=== PATIENT | female | born 1960 | race Caucasian/White ===

== ENCOUNTER → 2017-09-16 | Outpatient (CLI) | payer BC, OTHER, MEDICAID | LOC: M WHC 13:15 | DX: Z12.31 Encounter for screening mammogram for malignant neoplasm of breast (principal) ==

== ENCOUNTER → 2017-09-16 | Outpatient (REF) | payer OTHER, MEDICAID | LOC: M SFHCWAGY 13:06 | DX: Z12.4 Encounter for screening for malignant neoplasm of cervix (principal) ==

== ENCOUNTER 2017-12-16 18:49 | Emergency (ER) | payer BC, MEDICAID ==
[2017-12-16 19:22] LABS: KETONE, URINE AUTO RFX 2+ mg/dL (NEGATIVE); LEUKOCYTE ESTERASE UR AUTO RFX 2+ (NEGATIVE); MUCUS, URINE RFX SMALL (NEGATIVE); NITRITE, URINE AUTO RFX NEGATIVE (NEGATIVE); RBC, URINE AUTO RFX 2 /HPF (0-3); SPECIFIC GRAVITY UR AUTO RFX 1.023 (1.002-1.035); SQUAM EPITHELIAL CELL UR AURFX 2 /HPF (0-6); WBC, URINE AUTO RFX 12 /HPF (0-3)
[2017-12-16] MEDS: NITROFURANTOIN (MACROBID) 100 MG CAP PO (22:25)
== END 2017-12-16 22:31 | disposition home or self-care (01) ==
LOC: M ED 18:49
DX: N30.00 Acute cystitis without hematuria (principal); E11.9 Type 2 diabetes mellitus without complications; I10 Essential (primary) hypertension; J44.9 Chronic obstructive pulmonary disease, unspecified; K21.9 Gastro-esophageal reflux disease without esophagitis; E07.9 Disorder of thyroid, unspecified; F41.9 Anxiety disorder, unspecified; M54.9 Dorsalgia, unspecified; F31.9 Bipolar disorder, unspecified; Z79.82 Long term (current) use of aspirin; Z79.4 Long term (current) use of insulin; Z79.899 Other long term (current) drug therapy; Z88.8 Allergy status to other drugs, medicaments and biological substances; Z88.2 Allergy status to sulfonamides
CPT/HCPCS: 81001

== ENCOUNTER 2018-04-28 10:14 | Inpatient (IN) | payer OTHER, MEDICAID, BC ==
[2018-04-28] MEDS: LISINOPRIL 20 MG TAB PO (11:08)
[2018-04-28 11:13] LABS: BEDSIDE GLUCOSE 124 MG/DL (70-105)
[2018-04-28 11:21] LABS: HEMATOCRIT 36.6 % (36.0-47.0); HEMOGLOBIN 12.6 g/dl (12.0-15.5); MEAN CORPUSCULAR HEMOGLOBIN 30.9 pg (27.0-33.0); MEAN CORPUSCULAR HGB CONC 34.4 g/dl (32.0-36.5); MEAN CORPUSCULAR VOLUME 89.7 fl (80.0-96.0); PLATELET COUNT, AUTOMATED 273 10^3/uL (150-450); RED BLOOD COUNT 4.08 10^6/uL (4.00-5.40); RED CELL DISTRIBUTION WIDTH 11.9 % (11.5-14.5); WHITE BLOOD COUNT 10.5 10^3/uL (4.0-10.0)
[2018-04-28 11:51] LABS: AMPHETAMINES LEVEL URINE NEGATIVE (NEGATIVE); BARBITURATES URINE NEGATIVE (NEGATIVE); BENZODIAZEPINES URINE NEGATIVE (NEGATIVE); CANNABINOIDS URINE NEGATIVE (NEGATIVE); COCAINE METABOLITE URINE NEGATIVE (NEGATIVE); METHADONE URINE NEGATIVE (NEGATIVE); OPIATES URINE NEGATIVE (NEGATIVE); PHENCYCLIDINE URINE NEGATIVE (NEGATIVE)
[2018-04-28 12:09] LABS: ACETAMINOPHEN LEVEL < 2.0 UG/ML (10.0-30.0); ALBUMIN 3.8 GM/DL (3.2-5.2); ALBUMIN/GLOBULIN RATIO 1.27 (1.00-1.93); ALKALINE PHOSPHATASE 90 U/L (45-117); ALT/SGPT 38 U/L (12-78); ANION GAP 10 MEQ/L (8-16); AST/SGOT 24 U/L (7-37); BILIRUBIN,DIRECT 0.1 MG/DL (0.0-0.2); BILIRUBIN,TOTAL 0.3 MG/DL (0.2-1.0); BLOOD UREA NITROGEN 16 MG/DL (7-18); CALCIUM LEVEL 8.4 MG/DL (8.5-10.1); CARBON DIOXIDE LEVEL 26 MEQ/L (21-32); CHLORIDE LEVEL 94 MEQ/L (98-107); ETHYL ALCOHOL (ETHANOL) 0.006 % (0.000-0.010); GLOMERULAR FILTRATION RATE > 60.0 (>51); GLUCOSE, FASTING 119 MG/DL (70-100); POTASSIUM SERUM 4.3 MEQ/L (3.5-5.1); SALICYLATE LEVEL < 1.7 MG/DL (5.0-30.0); SODIUM LEVEL 130 MEQ/L (136-145); TOTAL PROTEIN 6.8 GM/DL (6.4-8.2); VALPROIC ACID (DEPAKOTE) 42.8 UG/ML (50.0-100.0)
[2018-04-28 12:32] LABS: KETONE, URINE AUTO RFX NEGATIVE (NEGATIVE); MUCUS, URINE RFX SMALL (NEGATIVE); NITRITE, URINE AUTO RFX NEGATIVE (NEGATIVE); RBC, URINE AUTO RFX 6 /HPF (0-3); SPECIFIC GRAVITY UR AUTO RFX 1.009 (1.002-1.035); SQUAM EPITHELIAL CELL UR AURFX 1 /HPF (0-6); WBC, URINE AUTO RFX 4 /HPF (0-3)
[2018-04-28 12:33] LABS: LEUKOCYTE ESTERASE UR AUTO RFX 1+ (NEGATIVE)
[2018-04-28] MEDS ORDERED: IBUPROFEN 600 MG TAB As Ordered (13:03)
[2018-04-28] MEDS: IBUPROFEN 600 MG TAB PO (13:04)
[2018-04-28] MEDS: LORazepam 1 MG TAB PO (14:41)
[2018-04-28] MEDS ORDERED: MAALOX 30 ML SUSP *UDC PO (15:00)
[2018-04-28] MEDS ORDERED: MOM 30ML SUSPENSION UDC PO (15:00)
[2018-04-28] MEDS: ASPIRIN 81 MG ENTERIC TAB PO (18:37)
[2018-04-28] MEDS: PANTOPRAZOLE 40MG TAB (PROTONIX) PO (18:37)
[2018-04-28] MEDS: diphenhydrAMINE 50 MG CAP PO (18:37)
[2018-04-28] MEDS: CLOPIDOGREL 75 MG TAB PO (18:37)
[2018-04-28] MEDS: LORazepam 2 MG TAB PO (18:37)
[2018-04-28] MEDS: HALOPERIDOL 5 MG TAB PO (18:37)
[2018-04-28] MEDS ORDERED: GLUCAGON FOR INJ 1 MG VIAL (J1610) SC (18:45)
[2018-04-28] MEDS ORDERED: GLUCOSE 4 GM CHEW TABLET PO (18:45)
[2018-04-28 20:58] LABS: BEDSIDE GLUCOSE 365 MG/DL (70-105)
[2018-04-28] MEDS: rOPINIRole 0.25 MG TAB(REQUIP) PO (21:06)
[2018-04-28] MEDS: DIVALPROEX 500MG *ER* TAB PO (21:06)
[2018-04-28] MEDS: BENZTROPINE 0.5 MG TAB PO (21:06)
[2018-04-28] MEDS: LATANOPROST 0.005% OPHTH SOLN 2.5 ML OU (21:08)
[2018-04-28] MEDS: BRIMONIDINE 0.15% OPHTH SOLN 5 ML OS (21:08)
[2018-04-28] MEDS: BRINZOLAMIDE 1 % OPHTH SUSP (AZOPT) 10ML OS (21:08)
[2018-04-28] MEDS: ADVAIR HFA 115/21MCG INHALER INH (21:09)
[2018-04-28] MEDS: LEVEMIR (INSULIN DETEMIR) 1 UNITS/0.01ML SC (21:19)
[2018-04-28] MEDS: HumaLOG INSULIN (NovoLOG) PER UNIT SC (21:19)
[2018-04-28] MEDS: ACETAMINOPHEN TAB 650MG DOSE (2X325MG) PO (23:45)
[2018-04-28] MEDS: FUROSEMIDE 20 MG TAB PO (23:45)
[2018-04-28] MEDS: ALBUTEROL 90 MCG/ACT 8GM HFA INHALER INH (23:46)
[2018-04-29] MEDS: diphenhydrAMINE 50 MG CAP PO ×3 (03:01→23:35)
[2018-04-29] MEDS: LORazepam 1 MG TAB PO (03:01)
[2018-04-29] MEDS: HALOPERIDOL 5 MG TAB PO (03:01)
[2018-04-29 04:19] LABS: BEDSIDE GLUCOSE 146 MG/DL (70-105)
[2018-04-29] MEDS: LEVOTHYROXINE 25MCG TABLET (0.025MG) PO (06:35)
[2018-04-29] MEDS: HumaLOG INSULIN (NovoLOG) PER UNIT SC ×4 (06:42→20:29)
[2018-04-29] MEDS ORDERED: traZODone 50 MG TAB PO (09:00)
[2018-04-29] MEDS: LEVEMIR (INSULIN DETEMIR) 1 UNITS/0.01ML SC ×2 (09:25→20:29)
[2018-04-29] MEDS: PANTOPRAZOLE 40MG TAB (PROTONIX) PO (09:26)
[2018-04-29] MEDS: CLOPIDOGREL 75 MG TAB PO (09:26)
[2018-04-29] MEDS: BRIMONIDINE 0.15% OPHTH SOLN 5 ML OS ×2 (09:26→21:00)
[2018-04-29] MEDS: ADVAIR HFA 115/21MCG INHALER INH ×2 (09:26→20:31)
[2018-04-29] MEDS: ASPIRIN 81 MG ENTERIC TAB PO (09:26)
[2018-04-29] MEDS: BRINZOLAMIDE 1 % OPHTH SUSP (AZOPT) 10ML OS ×3 (09:26→21:00)
[2018-04-29] MEDS: BENZTROPINE 0.5 MG TAB PO ×2 (09:26→20:29)
[2018-04-29] MEDS: LISINOPRIL 20 MG TAB PO (09:27)
[2018-04-29 11:37] LABS: ALBUMIN 3.8 GM/DL (3.2-5.2); ALBUMIN/GLOBULIN RATIO 1.31 (1.00-1.93); ALKALINE PHOSPHATASE 81 U/L (45-117); ALT/SGPT 35 U/L (12-78); ANION GAP 9 MEQ/L (8-16); AST/SGOT 30 U/L (7-37); BILIRUBIN,TOTAL 0.6 MG/DL (0.2-1.0); BLOOD UREA NITROGEN 16 MG/DL (7-18); CALCIUM LEVEL 8.2 MG/DL (8.5-10.1); CARBON DIOXIDE LEVEL 27 MEQ/L (21-32); CHLORIDE LEVEL 93 MEQ/L (98-107); CREATININE FOR GFR 0.54 MG/DL (0.55-1.30); GLOMERULAR FILTRATION RATE > 60.0 (>51); GLUCOSE, FASTING 140 MG/DL (70-100); POTASSIUM SERUM 4.6 MEQ/L (3.5-5.1); SODIUM LEVEL 129 MEQ/L (136-145); TOTAL PROTEIN 6.7 GM/DL (6.4-8.2)
[2018-04-29 11:54] LABS: BEDSIDE GLUCOSE 203 MG/DL (70-105)
[2018-04-29 12:56] LABS: HEMATOCRIT 34.7 % (36.0-47.0); MEAN CORPUSCULAR HEMOGLOBIN 30.8 pg (27.0-33.0); MEAN CORPUSCULAR HGB CONC 34.6 g/dl (32.0-36.5); MEAN CORPUSCULAR VOLUME 89.2 fl (80.0-96.0); PLATELET COUNT, AUTOMATED 285 10^3/uL (150-450); RED BLOOD COUNT 3.89 10^6/uL (4.00-5.40)
[2018-04-29 13:52] LABS: OSMOLALITY SERUM 276 MOSM/KG (275-295)
[2018-04-29 14:02] LABS: URIC ACID 3.9 MG/DL (2.6-6.0)
[2018-04-29 14:02] LABS: MAGNESIUM LEVEL 1.7 MG/DL (1.8-2.4)
[2018-04-29] MEDS: ACETAMINOPHEN TAB 650MG DOSE (2X325MG) PO (14:31)
[2018-04-29] MEDS: clonazePAM 0.5 MG TAB PO ×2 (14:55→20:29)
[2018-04-29 17:13] LABS: BEDSIDE GLUCOSE 133 MG/DL (70-105)
[2018-04-29] MEDS: DIVALPROEX 500MG *ER* TAB PO (20:29)
[2018-04-29] MEDS: rOPINIRole 0.25 MG TAB(REQUIP) PO (20:29)
[2018-04-29] MEDS: LORazepam 2 MG TAB PO (20:33)
[2018-04-29 20:59] LABS: BEDSIDE GLUCOSE 213 MG/DL (70-105)
[2018-04-29] MEDS: LATANOPROST 0.005% OPHTH SOLN 2.5 ML OU (21:00)
[2018-04-29] MEDS: HALOPERIDOL 10 MG TAB PO (23:35)
[2018-04-29] MEDS: LORazepam 0.5 MG TAB PO (23:35)
[2018-04-30] MEDS: HALOPERIDOL 5 MG/ML VIAL (J1630) IM (01:21)
[2018-04-30] MEDS: diphenhydrAMINE INJ 50MG/ML VIAL (J1200) IM (01:21)
[2018-04-30 06:53] LABS: HEMATOCRIT 33.8 % (36.0-47.0); HEMOGLOBIN 11.7 g/dl (12.0-15.5); MEAN CORPUSCULAR HEMOGLOBIN 31.3 pg (27.0-33.0); MEAN CORPUSCULAR HGB CONC 34.6 g/dl (32.0-36.5); MEAN CORPUSCULAR VOLUME 90.4 fl (80.0-96.0); PLATELET COUNT, AUTOMATED 240 10^3/uL (150-450); RED BLOOD COUNT 3.74 10^6/uL (4.00-5.40); RED CELL DISTRIBUTION WIDTH 12.1 % (11.5-14.5); WHITE BLOOD COUNT 10.3 10^3/uL (4.0-10.0)
[2018-04-30 07:07] LABS: ESTIMATED AVERAGE GLUCOSE 151 MG/DL (60-110); HEMOGLOBIN A1c 6.9 %
[2018-04-30 07:28] LABS: ALBUMIN 3.4 GM/DL (3.2-5.2); ALBUMIN/GLOBULIN RATIO 1.06 (1.00-1.93); ALKALINE PHOSPHATASE 70 U/L (45-117); ALT/SGPT 30 U/L (12-78); ANION GAP 8 MEQ/L (8-16); AST/SGOT 14 U/L (7-37); BILIRUBIN,TOTAL 0.2 MG/DL (0.2-1.0); BLOOD UREA NITROGEN 15 MG/DL (7-18); CALCIUM LEVEL 8.2 MG/DL (8.5-10.1); CARBON DIOXIDE LEVEL 28 MEQ/L (21-32); CHLORIDE LEVEL 96 MEQ/L (98-107); CREATININE FOR GFR 0.44 MG/DL (0.55-1.30); GLOMERULAR FILTRATION RATE > 60.0 (>51); GLUCOSE, FASTING 174 MG/DL (70-100); POTASSIUM SERUM 4.3 MEQ/L (3.5-5.1); SODIUM LEVEL 132 MEQ/L (136-145); TOTAL PROTEIN 6.6 GM/DL (6.4-8.2)
[2018-04-30] MEDS: HumaLOG INSULIN (NovoLOG) PER UNIT SC ×4 (07:30→20:16)
[2018-04-30 08:09] LABS: BEDSIDE GLUCOSE 178 MG/DL (70-105)
[2018-04-30] MEDS: clonazePAM 0.5 MG TAB PO ×2 (09:00→20:19)
[2018-04-30] MEDS: LEVEMIR (INSULIN DETEMIR) 1 UNITS/0.01ML SC ×2 (09:00→20:21)
[2018-04-30] MEDS: BRIMONIDINE 0.15% OPHTH SOLN 5 ML OS ×2 (11:34→20:27)
[2018-04-30] MEDS: BRINZOLAMIDE 1 % OPHTH SUSP (AZOPT) 10ML OS ×3 (11:34→20:19)
[2018-04-30 11:41] LABS: BEDSIDE GLUCOSE 155 MG/DL (70-105)
[2018-04-30] MEDS: PANTOPRAZOLE 40MG TAB (PROTONIX) PO (15:38)
[2018-04-30] MEDS: DIVALPROEX 500MG *ER* TAB PO (15:38)
[2018-04-30] MEDS: ADVAIR HFA 115/21MCG INHALER INH ×2 (15:38→20:23)
[2018-04-30] MEDS: FUROSEMIDE 20 MG TAB PO (15:39)
[2018-04-30] MEDS: LEVOTHYROXINE 25MCG TABLET (0.025MG) PO (15:39)
[2018-04-30] MEDS: BENZTROPINE 0.5 MG TAB PO ×2 (15:39→20:20)
[2018-04-30] MEDS: CLOPIDOGREL 75 MG TAB PO (15:39)
[2018-04-30] MEDS: ASPIRIN 81 MG ENTERIC TAB PO (15:39)
[2018-04-30] MEDS: LISINOPRIL 20 MG TAB PO (15:39)
[2018-04-30] MEDS: NYSTATIN 100,000 UNITS/GM TOPICAL PWD 15 GM TOP (16:37)
[2018-04-30] MEDS: ACETAMINOPHEN TAB 650MG DOSE (2X325MG) PO (16:45)
[2018-04-30 16:59] LABS: BEDSIDE GLUCOSE 170 MG/DL (70-105)
[2018-04-30 20:18] LABS: BEDSIDE GLUCOSE 233 MG/DL (70-105)
[2018-04-30] MEDS: rOPINIRole 0.25 MG TAB(REQUIP) PO (20:25)
[2018-04-30] MEDS: LATANOPROST 0.005% OPHTH SOLN 2.5 ML OU (20:27)
[2018-04-30] MEDS: diphenhydrAMINE INJ 50MG/ML VIAL (J1200) IV (21:54)
[2018-04-30] MEDS: HALOPERIDOL 10 MG TAB PO (21:56)
[2018-04-30] MEDS ORDERED: diphenhydrAMINE 50 MG CAP As Ordered (21:56)
[2018-04-30] MEDS: LORazepam 1 MG TAB PO (21:56)
[2018-04-30] MEDS: diphenhydrAMINE 50 MG CAP PO (22:00)
[2018-05-01] MEDS ORDERED: LORazepam 2 MG TAB As Ordered (00:08)
[2018-05-01] MEDS: HALOPERIDOL 10 MG TAB PO (00:25)
[2018-05-01] MEDS: LORazepam 2 MG TAB PO (00:25)
[2018-05-01] MEDS: diphenhydrAMINE 50 MG CAP PO (00:25)
[2018-05-01 06:34] LABS: BEDSIDE GLUCOSE 178 MG/DL (70-105)
[2018-05-01] MEDS: LEVOTHYROXINE 25MCG TABLET (0.025MG) PO (06:34)
[2018-05-01] MEDS: HumaLOG INSULIN (NovoLOG) PER UNIT SC ×4 (07:30→20:46)
[2018-05-01] MEDS: ADVAIR HFA 115/21MCG INHALER INH ×2 (11:33→20:45)
[2018-05-01] MEDS: BRINZOLAMIDE 1 % OPHTH SUSP (AZOPT) 10ML OS ×3 (11:34→20:44)
[2018-05-01] MEDS: BRIMONIDINE 0.15% OPHTH SOLN 5 ML OS ×2 (11:34→20:44)
[2018-05-01] MEDS: ASPIRIN 81 MG ENTERIC TAB PO (11:35)
[2018-05-01] MEDS: PANTOPRAZOLE 40MG TAB (PROTONIX) PO (11:35)
[2018-05-01] MEDS: clonazePAM 0.5 MG TAB PO ×2 (11:35→20:45)
[2018-05-01] MEDS: BENZTROPINE 0.5 MG TAB PO ×2 (11:35→20:45)
[2018-05-01] MEDS: LISINOPRIL 20 MG TAB PO (11:35)
[2018-05-01] MEDS: CLOPIDOGREL 75 MG TAB PO (11:35)
[2018-05-01] MEDS: LEVEMIR (INSULIN DETEMIR) 1 UNITS/0.01ML SC ×2 (11:39→20:41)
[2018-05-01] MEDS: ACETAMINOPHEN TAB 650MG DOSE (2X325MG) PO ×2 (11:43→23:53)
[2018-05-01] MEDS: NYSTATIN 100,000 UNITS/GM TOPICAL PWD 15 GM TOP (11:47)
[2018-05-01 12:01] LABS: BEDSIDE GLUCOSE 140 MG/DL (70-105)
[2018-05-01] MEDS: ALBUTEROL 90 MCG/ACT 8GM HFA INHALER INH (13:40)
[2018-05-01 17:03] LABS: BEDSIDE GLUCOSE 194 MG/DL (70-105)
[2018-05-01 20:34] LABS: BEDSIDE GLUCOSE 135 MG/DL (70-105)
[2018-05-01] MEDS: rOPINIRole 0.25 MG TAB(REQUIP) PO (20:44)
[2018-05-01] MEDS: LATANOPROST 0.005% OPHTH SOLN 2.5 ML OU (20:44)
[2018-05-01] MEDS: DIVALPROEX 500MG *ER* TAB PO (20:45)
[2018-05-02] MEDS: HALOPERIDOL 5 MG/ML VIAL (J1630) IM ×2 (00:17→02:19)
[2018-05-02] MEDS: LORazepam 2 MG/ML VIAL (J2060) IM (00:17)
[2018-05-02] MEDS: diphenhydrAMINE INJ 50MG/ML VIAL (J1200) IM ×2 (00:18→02:19)
[2018-05-02] MEDS: HALOPERIDOL 10 MG TAB PO ×2 (01:59→20:49)
[2018-05-02] MEDS: diphenhydrAMINE 50 MG CAP PO (01:59)
[2018-05-02] MEDS: ALBUTEROL 90 MCG/ACT 8GM HFA INHALER INH ×3 (04:36→16:32)
[2018-05-02] MEDS: LEVOTHYROXINE 25MCG TABLET (0.025MG) PO (04:37)
[2018-05-02] MEDS: HumaLOG INSULIN (NovoLOG) PER UNIT SC ×4 (06:25→20:50)
[2018-05-02 06:27] LABS: BEDSIDE GLUCOSE 77 MG/DL (70-105)
[2018-05-02] MEDS: OLANZapine ORAL DISINTEGRATING TAB 5MG PO ×2 (07:08→21:16)
[2018-05-02] MEDS: clonazePAM 0.5 MG TAB PO (08:15)
[2018-05-02] MEDS: PANTOPRAZOLE 40MG TAB (PROTONIX) PO (08:15)
[2018-05-02] MEDS: BRIMONIDINE 0.15% OPHTH SOLN 5 ML OS ×2 (08:15→20:50)
[2018-05-02] MEDS: BRINZOLAMIDE 1 % OPHTH SUSP (AZOPT) 10ML OS ×3 (08:15→20:50)
[2018-05-02] MEDS: ASPIRIN 81 MG ENTERIC TAB PO (08:16)
[2018-05-02] MEDS: BENZTROPINE 0.5 MG TAB PO (08:16)
[2018-05-02] MEDS: LISINOPRIL 20 MG TAB PO (08:16)
[2018-05-02] MEDS: CLOPIDOGREL 75 MG TAB PO (08:16)
[2018-05-02] MEDS: ADVAIR HFA 115/21MCG INHALER INH ×2 (08:17→20:54)
[2018-05-02] MEDS: LEVEMIR (INSULIN DETEMIR) 1 UNITS/0.01ML SC ×2 (08:17→20:54)
[2018-05-02] MEDS: ACETAMINOPHEN TAB 650MG DOSE (2X325MG) PO (08:25)
[2018-05-02 10:14] LABS: CORTISOL AM 29.7 UG/DL (4.3-22.4)
[2018-05-02 12:10] LABS: BEDSIDE GLUCOSE 136 MG/DL (70-105)
[2018-05-02 12:21] LABS: ANION GAP 9 MEQ/L (8-16); BLOOD UREA NITROGEN 13 MG/DL (7-18); CALCIUM LEVEL 8.8 MG/DL (8.5-10.1); CARBON DIOXIDE LEVEL 24 MEQ/L (21-32); CHLORIDE LEVEL 99 MEQ/L (98-107); CREATININE FOR GFR 0.44 MG/DL (0.55-1.30); GLOMERULAR FILTRATION RATE > 60.0 (>51); GLUCOSE, FASTING 161 MG/DL (70-100); POTASSIUM SERUM 5.1 MEQ/L (3.5-5.1); SODIUM LEVEL 132 MEQ/L (136-145)
[2018-05-02 17:13] LABS: BEDSIDE GLUCOSE 153 MG/DL (70-105)
[2018-05-02 20:43] LABS: BEDSIDE GLUCOSE 129 MG/DL (70-105)
[2018-05-02] MEDS: rOPINIRole 0.25 MG TAB(REQUIP) PO (20:48)
[2018-05-02] MEDS: clonazePAM 1 MG TAB PO (20:49)
[2018-05-02] MEDS: BENZTROPINE 1 MG TAB PO (20:49)
[2018-05-02] MEDS: DIVALPROEX 500MG *ER* TAB PO (20:49)
[2018-05-02] MEDS: LATANOPROST 0.005% OPHTH SOLN 2.5 ML OU (20:50)
[2018-05-03] MEDS: LEVOTHYROXINE 25MCG TABLET (0.025MG) PO (06:27)
[2018-05-03 06:35] LABS: BEDSIDE GLUCOSE 144 MG/DL (70-105)
[2018-05-03] MEDS: HumaLOG INSULIN (NovoLOG) PER UNIT SC ×4 (07:03→21:00)
[2018-05-03 07:23] LABS: HEMATOCRIT 32.1 % (36.0-47.0); HEMOGLOBIN 11.1 g/dl (12.0-15.5); MEAN CORPUSCULAR HEMOGLOBIN 31.4 pg (27.0-33.0); MEAN CORPUSCULAR HGB CONC 34.6 g/dl (32.0-36.5); MEAN CORPUSCULAR VOLUME 90.9 fl (80.0-96.0); PLATELET COUNT, AUTOMATED 251 10^3/uL (150-450); RED BLOOD COUNT 3.53 10^6/uL (4.00-5.40); RED CELL DISTRIBUTION WIDTH 12.1 % (11.5-14.5); WHITE BLOOD COUNT 10.4 10^3/uL (4.0-10.0)
[2018-05-03 07:40] LABS: ANION GAP 7 MEQ/L (8-16); BLOOD UREA NITROGEN 11 MG/DL (7-18); CALCIUM LEVEL 8.4 MG/DL (8.5-10.1); CARBON DIOXIDE LEVEL 29 MEQ/L (21-32); CHLORIDE LEVEL 97 MEQ/L (98-107); CREATININE FOR GFR 0.46 MG/DL (0.55-1.30); GLOMERULAR FILTRATION RATE > 60.0 (>51); GLUCOSE, FASTING 138 MG/DL (70-100); POTASSIUM SERUM 4.3 MEQ/L (3.5-5.1); SODIUM LEVEL 133 MEQ/L (136-145)
[2018-05-03 07:51] LABS: ALBUMIN 3.2 GM/DL (3.2-5.2); ALBUMIN/GLOBULIN RATIO 1.28 (1.00-1.93); ALKALINE PHOSPHATASE 67 U/L (45-117); ALT/SGPT 24 U/L (12-78); ANION GAP 8 MEQ/L (8-16); AST/SGOT 11 U/L (7-37); BILIRUBIN,TOTAL 0.4 MG/DL (0.2-1.0); BLOOD UREA NITROGEN 12 MG/DL (7-18); CALCIUM LEVEL 8.6 MG/DL (8.5-10.1); CARBON DIOXIDE LEVEL 28 MEQ/L (21-32); CHLORIDE LEVEL 98 MEQ/L (98-107); CREATININE FOR GFR 0.43 MG/DL (0.55-1.30); GLOMERULAR FILTRATION RATE > 60.0 (>51); GLUCOSE, FASTING 139 MG/DL (70-100); POTASSIUM SERUM 4.4 MEQ/L (3.5-5.1); SODIUM LEVEL 134 MEQ/L (136-145); TOTAL PROTEIN 5.7 GM/DL (6.4-8.2)
[2018-05-03] MEDS: BENZTROPINE 1 MG TAB PO ×2 (09:52→20:25)
[2018-05-03] MEDS: ASPIRIN 81 MG ENTERIC TAB PO (09:52)
[2018-05-03] MEDS: HALOPERIDOL 10 MG TAB PO ×2 (09:52→20:26)
[2018-05-03] MEDS: clonazePAM 1 MG TAB PO ×2 (09:52→20:25)
[2018-05-03] MEDS: CLOPIDOGREL 75 MG TAB PO (09:53)
[2018-05-03] MEDS: ADVAIR HFA 115/21MCG INHALER INH ×2 (09:54→21:42)
[2018-05-03] MEDS: PANTOPRAZOLE 40MG TAB (PROTONIX) PO (09:54)
[2018-05-03] MEDS: LISINOPRIL 20 MG TAB PO (09:54)
[2018-05-03] MEDS: LEVEMIR (INSULIN DETEMIR) 1 UNITS/0.01ML SC ×2 (09:55→20:55)
[2018-05-03] MEDS: BRINZOLAMIDE 1 % OPHTH SUSP (AZOPT) 10ML OS ×3 (10:01→20:27)
[2018-05-03] MEDS: BRIMONIDINE 0.15% OPHTH SOLN 5 ML OS ×2 (10:01→20:27)
[2018-05-03] MEDS: ALBUTEROL 90 MCG/ACT 8GM HFA INHALER INH ×2 (11:24→15:34)
[2018-05-03] MEDS: FUROSEMIDE 20 MG TAB PO (11:26)
[2018-05-03] MEDS: ACETAMINOPHEN TAB 650MG DOSE (2X325MG) PO (11:27)
[2018-05-03 11:33] LABS: BEDSIDE GLUCOSE 175 MG/DL (70-105)
[2018-05-03] MEDS: OLANZapine ORAL DISINTEGRATING TAB 5MG PO ×2 (17:22→21:45)
[2018-05-03] MEDS: LORazepam 2 MG TAB PO (17:22)
[2018-05-03] MEDS: diphenhydrAMINE 50 MG CAP PO (17:22)
[2018-05-03 17:24] LABS: BEDSIDE GLUCOSE 165 MG/DL (70-105)
[2018-05-03] MEDS: DIVALPROEX 500MG *ER* TAB PO (20:25)
[2018-05-03] MEDS: rOPINIRole 0.25 MG TAB(REQUIP) PO (20:26)
[2018-05-03] MEDS: LATANOPROST 0.005% OPHTH SOLN 2.5 ML OU (20:27)
[2018-05-03 20:51] LABS: BEDSIDE GLUCOSE 179 MG/DL (70-105)
[2018-05-04] MEDS: LEVOTHYROXINE 25MCG TABLET (0.025MG) PO (06:22)
[2018-05-04 06:42] LABS: BEDSIDE GLUCOSE 115 MG/DL (70-105)
[2018-05-04] MEDS: HumaLOG INSULIN (NovoLOG) PER UNIT SC ×4 (06:44→20:26)
[2018-05-04] MEDS: ALBUTEROL 90 MCG/ACT 8GM HFA INHALER INH ×3 (06:52→16:46)
[2018-05-04] MEDS: ADVAIR HFA 115/21MCG INHALER INH ×2 (08:28→20:40)
[2018-05-04] MEDS: PANTOPRAZOLE 40MG TAB (PROTONIX) PO (08:28)
[2018-05-04] MEDS: CLOPIDOGREL 75 MG TAB PO (08:28)
[2018-05-04] MEDS: clonazePAM 1 MG TAB PO ×2 (08:28→20:34)
[2018-05-04] MEDS: BENZTROPINE 1 MG TAB PO ×2 (08:28→20:34)
[2018-05-04] MEDS: ASPIRIN 81 MG ENTERIC TAB PO (08:28)
[2018-05-04] MEDS: HALOPERIDOL 10 MG TAB PO ×2 (08:28→20:34)
[2018-05-04] MEDS: LISINOPRIL 20 MG TAB PO (08:28)
[2018-05-04] MEDS: ACETAMINOPHEN TAB 650MG DOSE (2X325MG) PO (08:31)
[2018-05-04] MEDS: LEVEMIR (INSULIN DETEMIR) 1 UNITS/0.01ML SC ×2 (08:33→20:36)
[2018-05-04] MEDS: BRIMONIDINE 0.15% OPHTH SOLN 5 ML OS ×2 (08:33→20:32)
[2018-05-04] MEDS: BRINZOLAMIDE 1 % OPHTH SUSP (AZOPT) 10ML OS ×3 (09:59→20:32)
[2018-05-04 12:09] LABS: BEDSIDE GLUCOSE 105 MG/DL (70-105)
[2018-05-04 17:01] LABS: BEDSIDE GLUCOSE 131 MG/DL (70-105)
[2018-05-04 20:28] LABS: BEDSIDE GLUCOSE 168 MG/DL (70-105)
[2018-05-04] MEDS: LATANOPROST 0.005% OPHTH SOLN 2.5 ML OU (20:32)
[2018-05-04] MEDS: rOPINIRole 0.25 MG TAB(REQUIP) PO (20:34)
[2018-05-04] MEDS: DIVALPROEX 500MG *ER* TAB PO (20:35)
[2018-05-05] MEDS: ALBUTEROL 90 MCG/ACT 8GM HFA INHALER INH ×2 (00:37→23:04)
[2018-05-05] MEDS: FUROSEMIDE 20 MG TAB PO (02:28)
[2018-05-05] MEDS: LEVOTHYROXINE 25MCG TABLET (0.025MG) PO (06:00)
[2018-05-05] MEDS: HumaLOG INSULIN (NovoLOG) PER UNIT SC ×4 (07:30→20:56)
[2018-05-05 08:12] LABS: BEDSIDE GLUCOSE 89 MG/DL (70-105)
[2018-05-05 08:23] LABS: HEMATOCRIT 36.1 % (36.0-47.0); HEMOGLOBIN 12.1 g/dl (12.0-15.5); MEAN CORPUSCULAR HEMOGLOBIN 30.4 pg (27.0-33.0); MEAN CORPUSCULAR HGB CONC 33.5 g/dl (32.0-36.5); MEAN CORPUSCULAR VOLUME 90.7 fl (80.0-96.0); PLATELET COUNT, AUTOMATED 312 10^3/uL (150-450); RED BLOOD COUNT 3.98 10^6/uL (4.00-5.40); RED CELL DISTRIBUTION WIDTH 12.2 % (11.5-14.5); WHITE BLOOD COUNT 10.5 10^3/uL (4.0-10.0)
[2018-05-05 08:52] LABS: ANION GAP 9 MEQ/L (8-16); BLOOD UREA NITROGEN 15 MG/DL (7-18); CALCIUM LEVEL 8.9 MG/DL (8.5-10.1); CARBON DIOXIDE LEVEL 31 MEQ/L (21-32); CHLORIDE LEVEL 99 MEQ/L (98-107); CREATININE FOR GFR 0.51 MG/DL (0.55-1.30); GLOMERULAR FILTRATION RATE > 60.0 (>51); GLUCOSE, FASTING 73 MG/DL (70-100); POTASSIUM SERUM 3.9 MEQ/L (3.5-5.1); SODIUM LEVEL 139 MEQ/L (136-145)
[2018-05-05] MEDS: LEVEMIR (INSULIN DETEMIR) 1 UNITS/0.01ML SC ×2 (09:22→20:58)
[2018-05-05] MEDS: clonazePAM 1 MG TAB PO ×2 (09:22→20:56)
[2018-05-05] MEDS: HALOPERIDOL 10 MG TAB PO ×2 (09:23→20:56)
[2018-05-05] MEDS: CLOPIDOGREL 75 MG TAB PO (09:23)
[2018-05-05] MEDS: BRINZOLAMIDE 1 % OPHTH SUSP (AZOPT) 10ML OS ×3 (09:23→21:01)
[2018-05-05] MEDS: LISINOPRIL 20 MG TAB PO (09:23)
[2018-05-05] MEDS: ADVAIR HFA 115/21MCG INHALER INH ×2 (09:23→20:58)
[2018-05-05] MEDS: ASPIRIN 81 MG ENTERIC TAB PO (09:23)
[2018-05-05] MEDS: BENZTROPINE 1 MG TAB PO ×2 (09:23→20:55)
[2018-05-05] MEDS: BRIMONIDINE 0.15% OPHTH SOLN 5 ML OS ×2 (09:23→21:01)
[2018-05-05] MEDS: PANTOPRAZOLE 40MG TAB (PROTONIX) PO (09:23)
[2018-05-05 10:18] LABS: REASON FOR REVIEW WBC/LEUKEMIA/BLAST; SLIDE REVIEW Report; SOURCE PERIPHERAL SMEAR
[2018-05-05 11:44] LABS: BEDSIDE GLUCOSE 165 MG/DL (70-105)
[2018-05-05] MEDS: ACETAMINOPHEN TAB 650MG DOSE (2X325MG) PO (13:57)
[2018-05-05 17:10] LABS: BEDSIDE GLUCOSE 106 MG/DL (70-105)
[2018-05-05 20:53] LABS: BEDSIDE GLUCOSE 117 MG/DL (70-105)
[2018-05-05] MEDS: rOPINIRole 0.25 MG TAB(REQUIP) PO (20:56)
[2018-05-05] MEDS: DIVALPROEX 250MG *ER* TAB PO (20:56)
[2018-05-05] MEDS: LATANOPROST 0.005% OPHTH SOLN 2.5 ML OU (21:01)
[2018-05-06] MEDS: FUROSEMIDE 20 MG TAB PO (01:19)
[2018-05-06] MEDS: OLANZapine ORAL DISINTEGRATING TAB 5MG PO ×2 (01:19→23:19)
[2018-05-06] MEDS: LEVOTHYROXINE 25MCG TABLET (0.025MG) PO (06:39)
[2018-05-06] MEDS: HumaLOG INSULIN (NovoLOG) PER UNIT SC ×4 (06:45→20:47)
[2018-05-06 06:46] LABS: BEDSIDE GLUCOSE 109 MG/DL (70-105)
[2018-05-06] MEDS: HALOPERIDOL 10 MG TAB PO ×2 (09:39→20:49)
[2018-05-06] MEDS: ASPIRIN 81 MG ENTERIC TAB PO (09:39)
[2018-05-06] MEDS: LISINOPRIL 20 MG TAB PO (09:39)
[2018-05-06] MEDS: BRIMONIDINE 0.15% OPHTH SOLN 5 ML OS ×2 (09:39→21:44)
[2018-05-06] MEDS: CLOPIDOGREL 75 MG TAB PO (09:39)
[2018-05-06] MEDS: clonazePAM 1 MG TAB PO ×2 (09:39→20:49)
[2018-05-06] MEDS: PANTOPRAZOLE 40MG TAB (PROTONIX) PO (09:39)
[2018-05-06] MEDS: BENZTROPINE 1 MG TAB PO ×2 (09:39→20:49)
[2018-05-06] MEDS: ADVAIR HFA 115/21MCG INHALER INH ×2 (09:39→20:57)
[2018-05-06] MEDS: LEVEMIR (INSULIN DETEMIR) 1 UNITS/0.01ML SC ×2 (09:40→20:52)
[2018-05-06] MEDS: BRINZOLAMIDE 1 % OPHTH SUSP (AZOPT) 10ML OS ×3 (10:05→21:44)
[2018-05-06] MEDS: ACETAMINOPHEN TAB 650MG DOSE (2X325MG) PO ×2 (10:23→23:19)
[2018-05-06 12:13] LABS: BEDSIDE GLUCOSE 198 MG/DL (70-105)
[2018-05-06] MEDS: LORazepam 2 MG TAB PO (12:13)
[2018-05-06] MEDS: ALBUTEROL 90 MCG/ACT 8GM HFA INHALER INH (12:43)
[2018-05-06 17:00] LABS: BEDSIDE GLUCOSE 127 MG/DL (70-105)
[2018-05-06] MEDS: DIVALPROEX 250MG *ER* TAB PO (20:48)
[2018-05-06 20:49] LABS: BEDSIDE GLUCOSE 176 MG/DL (70-105)
[2018-05-06] MEDS: rOPINIRole 0.25 MG TAB(REQUIP) PO (20:50)
[2018-05-06] MEDS: LATANOPROST 0.005% OPHTH SOLN 2.5 ML OU (21:44)
[2018-05-07] MEDS: LEVOTHYROXINE 25MCG TABLET (0.025MG) PO (06:19)
[2018-05-07 06:34] LABS: BEDSIDE GLUCOSE 153 MG/DL (70-105)
[2018-05-07] MEDS: HumaLOG INSULIN (NovoLOG) PER UNIT SC ×4 (06:49→20:13)
[2018-05-07] MEDS: ACETAMINOPHEN TAB 650MG DOSE (2X325MG) PO (07:34)
[2018-05-07] MEDS: CLOPIDOGREL 75 MG TAB PO (08:53)
[2018-05-07] MEDS: clonazePAM 1 MG TAB PO ×2 (08:53→20:11)
[2018-05-07] MEDS: ADVAIR HFA 115/21MCG INHALER INH ×2 (08:53→19:24)
[2018-05-07] MEDS: LISINOPRIL 20 MG TAB PO (08:54)
[2018-05-07] MEDS: HALOPERIDOL 10 MG TAB PO ×2 (08:54→20:11)
[2018-05-07] MEDS: BENZTROPINE 1 MG TAB PO ×2 (08:54→20:11)
[2018-05-07] MEDS: BRINZOLAMIDE 1 % OPHTH SUSP (AZOPT) 10ML OS ×3 (08:54→20:13)
[2018-05-07] MEDS: ASPIRIN 81 MG ENTERIC TAB PO (08:54)
[2018-05-07] MEDS: BRIMONIDINE 0.15% OPHTH SOLN 5 ML OS ×2 (08:54→20:14)
[2018-05-07] MEDS: PANTOPRAZOLE 40MG TAB (PROTONIX) PO (08:54)
[2018-05-07] MEDS: LEVEMIR (INSULIN DETEMIR) 1 UNITS/0.01ML SC ×2 (08:55→20:13)
[2018-05-07] MEDS: OLANZapine ORAL DISINTEGRATING TAB 5MG PO (09:46)
[2018-05-07 11:45] LABS: BEDSIDE GLUCOSE 162 MG/DL (70-105)
[2018-05-07 17:26] LABS: BEDSIDE GLUCOSE 175 MG/DL (70-105)
[2018-05-07 19:32] LABS: BEDSIDE GLUCOSE 210 MG/DL (70-105)
[2018-05-07] MEDS: DIVALPROEX 250MG *ER* TAB PO (20:11)
[2018-05-07] MEDS: rOPINIRole 0.25 MG TAB(REQUIP) PO (20:11)
[2018-05-07] MEDS: LATANOPROST 0.005% OPHTH SOLN 2.5 ML OU (20:14)
[2018-05-08] MEDS: LEVOTHYROXINE 25MCG TABLET (0.025MG) PO (06:12)
[2018-05-08 06:20] LABS: BEDSIDE GLUCOSE 96 MG/DL (70-105)
[2018-05-08] MEDS: HumaLOG INSULIN (NovoLOG) PER UNIT SC ×4 (06:34→20:19)
[2018-05-08] MEDS: BENZTROPINE 1 MG TAB PO ×2 (08:09→20:17)
[2018-05-08] MEDS: CLOPIDOGREL 75 MG TAB PO (08:09)
[2018-05-08] MEDS: clonazePAM 1 MG TAB PO ×2 (08:09→20:17)
[2018-05-08] MEDS: LEVEMIR (INSULIN DETEMIR) 1 UNITS/0.01ML SC ×2 (08:09→20:20)
[2018-05-08] MEDS: ASPIRIN 81 MG ENTERIC TAB PO (08:09)
[2018-05-08] MEDS: PANTOPRAZOLE 40MG TAB (PROTONIX) PO (08:09)
[2018-05-08] MEDS: LISINOPRIL 20 MG TAB PO (08:10)
[2018-05-08] MEDS: BRINZOLAMIDE 1 % OPHTH SUSP (AZOPT) 10ML OS ×3 (08:10→21:39)
[2018-05-08] MEDS: HALOPERIDOL 10 MG TAB PO ×2 (08:10→20:17)
[2018-05-08] MEDS: ADVAIR HFA 115/21MCG INHALER INH ×2 (08:10→20:20)
[2018-05-08] MEDS: BRIMONIDINE 0.15% OPHTH SOLN 5 ML OS ×2 (08:10→21:39)
[2018-05-08] MEDS: FUROSEMIDE 20 MG TAB PO (08:32)
[2018-05-08] MEDS: ACETAMINOPHEN TAB 650MG DOSE (2X325MG) PO (09:16)
[2018-05-08] MEDS: ALBUTEROL 90 MCG/ACT 8GM HFA INHALER INH (10:25)
[2018-05-08 12:36] LABS: BEDSIDE GLUCOSE 192 MG/DL (70-105)
[2018-05-08 17:16] LABS: BEDSIDE GLUCOSE 144 MG/DL (70-105)
[2018-05-08] MEDS: rOPINIRole 0.25 MG TAB(REQUIP) PO (20:17)
[2018-05-08] MEDS: DIVALPROEX 250MG *ER* TAB PO (20:17)
[2018-05-08 20:18] LABS: BEDSIDE GLUCOSE 167 MG/DL (70-105)
[2018-05-08] MEDS: LATANOPROST 0.005% OPHTH SOLN 2.5 ML OU (21:39)
[2018-05-09] MEDS: ALBUTEROL 90 MCG/ACT 8GM HFA INHALER INH ×2 (00:37→10:45)
[2018-05-09 06:20] LABS: BEDSIDE GLUCOSE 88 MG/DL (70-105)
[2018-05-09] MEDS: LEVOTHYROXINE 25MCG TABLET (0.025MG) PO (06:20)
[2018-05-09] MEDS: HumaLOG INSULIN (NovoLOG) PER UNIT SC ×4 (06:20→20:39)
[2018-05-09 07:21] LABS: MEAN CORPUSCULAR HEMOGLOBIN 30.8 pg (27.0-33.0); MEAN CORPUSCULAR HGB CONC 33.3 g/dl (32.0-36.5); MEAN CORPUSCULAR VOLUME 92.5 fl (80.0-96.0); PLATELET COUNT, AUTOMATED 280 10^3/uL (150-450); RED BLOOD COUNT 3.89 10^6/uL (4.00-5.40); WHITE BLOOD COUNT 10.7 10^3/uL (4.0-10.0)
[2018-05-09 07:56] LABS: ANION GAP 5 MEQ/L (8-16); BLOOD UREA NITROGEN 14 MG/DL (7-18); CALCIUM LEVEL 9.2 MG/DL (8.5-10.1); CARBON DIOXIDE LEVEL 32 MEQ/L (21-32); CHLORIDE LEVEL 101 MEQ/L (98-107); GLOMERULAR FILTRATION RATE > 60.0 (>51); GLUCOSE, FASTING 89 MG/DL (70-100); POTASSIUM SERUM 4.2 MEQ/L (3.5-5.1); SODIUM LEVEL 138 MEQ/L (136-145)
[2018-05-09] MEDS: LEVEMIR (INSULIN DETEMIR) 1 UNITS/0.01ML SC ×2 (08:37→20:40)
[2018-05-09] MEDS: BRINZOLAMIDE 1 % OPHTH SUSP (AZOPT) 10ML OS ×3 (08:38→23:12)
[2018-05-09] MEDS: BRIMONIDINE 0.15% OPHTH SOLN 5 ML OS ×2 (08:38→23:12)
[2018-05-09] MEDS: ADVAIR HFA 115/21MCG INHALER INH ×2 (08:39→20:40)
[2018-05-09] MEDS: clonazePAM 1 MG TAB PO ×2 (08:44→20:37)
[2018-05-09] MEDS: ASPIRIN 81 MG ENTERIC TAB PO (08:44)
[2018-05-09] MEDS: BENZTROPINE 1 MG TAB PO ×2 (08:45→20:37)
[2018-05-09] MEDS: PANTOPRAZOLE 40MG TAB (PROTONIX) PO (08:45)
[2018-05-09] MEDS: LISINOPRIL 20 MG TAB PO (08:45)
[2018-05-09] MEDS: HALOPERIDOL 10 MG TAB PO ×2 (08:45→20:37)
[2018-05-09] MEDS: CLOPIDOGREL 75 MG TAB PO (08:45)
[2018-05-09] MEDS: NYSTATIN 100,000 UNITS/GM TOPICAL PWD 15 GM TOP (10:47)
[2018-05-09 11:47] LABS: BEDSIDE GLUCOSE 171 MG/DL (70-105)
[2018-05-09] MEDS: OLANZapine ORAL DISINTEGRATING TAB 5MG PO (15:30)
[2018-05-09 16:57] LABS: BEDSIDE GLUCOSE 155 MG/DL (70-105)
[2018-05-09] MEDS: DIVALPROEX 250MG *ER* TAB PO (20:37)
[2018-05-09] MEDS: rOPINIRole 0.25 MG TAB(REQUIP) PO (20:37)
[2018-05-09 20:41] LABS: BEDSIDE GLUCOSE 219 MG/DL (70-105)
[2018-05-09] MEDS: LATANOPROST 0.005% OPHTH SOLN 2.5 ML OU (23:12)
[2018-05-10] MEDS: LEVOTHYROXINE 25MCG TABLET (0.025MG) PO (06:27)
[2018-05-10] MEDS: HumaLOG INSULIN (NovoLOG) PER UNIT SC ×4 (06:32→21:00)
[2018-05-10 06:34] LABS: BEDSIDE GLUCOSE 98 MG/DL (70-105)
[2018-05-10] MEDS: ACETAMINOPHEN TAB 650MG DOSE (2X325MG) PO (07:21)
[2018-05-10] MEDS: HALOPERIDOL 10 MG TAB PO ×2 (08:53→21:11)
[2018-05-10] MEDS: clonazePAM 1 MG TAB PO ×2 (08:53→21:11)
[2018-05-10] MEDS: ALBUTEROL 90 MCG/ACT 8GM HFA INHALER INH (08:53)
[2018-05-10] MEDS: CLOPIDOGREL 75 MG TAB PO (08:53)
[2018-05-10] MEDS: LEVEMIR (INSULIN DETEMIR) 1 UNITS/0.01ML SC ×2 (08:53→21:28)
[2018-05-10] MEDS: BENZTROPINE 1 MG TAB PO ×2 (08:53→21:12)
[2018-05-10] MEDS: PANTOPRAZOLE 40MG TAB (PROTONIX) PO (08:53)
[2018-05-10] MEDS: ASPIRIN 81 MG ENTERIC TAB PO (08:53)
[2018-05-10] MEDS: LISINOPRIL 20 MG TAB PO (08:56)
[2018-05-10] MEDS: BRINZOLAMIDE 1 % OPHTH SUSP (AZOPT) 10ML OS ×3 (08:57→21:11)
[2018-05-10] MEDS: BRIMONIDINE 0.15% OPHTH SOLN 5 ML OS ×2 (08:57→21:25)
[2018-05-10] MEDS: ADVAIR HFA 115/21MCG INHALER INH ×2 (09:01→21:28)
[2018-05-10 11:41] LABS: BEDSIDE GLUCOSE 151 MG/DL (70-105)
[2018-05-10 17:14] LABS: BEDSIDE GLUCOSE 154 MG/DL (70-105)
[2018-05-10] MEDS: DIVALPROEX 250MG *ER* TAB PO (21:12)
[2018-05-10 21:21] LABS: BEDSIDE GLUCOSE 138 MG/DL (70-105)
[2018-05-10] MEDS: LATANOPROST 0.005% OPHTH SOLN 2.5 ML OU (21:26)
[2018-05-10] MEDS: rOPINIRole 0.25 MG TAB(REQUIP) PO (21:27)
[2018-05-11] MEDS: LEVOTHYROXINE 25MCG TABLET (0.025MG) PO (05:20)
[2018-05-11 05:25] LABS: BEDSIDE GLUCOSE 129 MG/DL (70-105)
[2018-05-11] MEDS: HumaLOG INSULIN (NovoLOG) PER UNIT SC ×4 (06:40→20:45)
[2018-05-11] MEDS: LEVEMIR (INSULIN DETEMIR) 1 UNITS/0.01ML SC ×2 (08:42→20:51)
[2018-05-11] MEDS: PANTOPRAZOLE 40MG TAB (PROTONIX) PO (08:43)
[2018-05-11] MEDS: ASPIRIN 81 MG ENTERIC TAB PO (08:43)
[2018-05-11] MEDS: BRIMONIDINE 0.15% OPHTH SOLN 5 ML OS ×2 (08:44→20:51)
[2018-05-11] MEDS: BRINZOLAMIDE 1 % OPHTH SUSP (AZOPT) 10ML OS ×3 (08:44→20:47)
[2018-05-11] MEDS: HALOPERIDOL 10 MG TAB PO ×2 (08:44→20:52)
[2018-05-11] MEDS: clonazePAM 1 MG TAB PO ×2 (08:44→20:52)
[2018-05-11] MEDS: CLOPIDOGREL 75 MG TAB PO (08:44)
[2018-05-11] MEDS: BENZTROPINE 1 MG TAB PO ×2 (08:44→20:52)
[2018-05-11] MEDS: ADVAIR HFA 115/21MCG INHALER INH ×2 (08:45→20:52)
[2018-05-11] MEDS: LISINOPRIL 20 MG TAB PO (08:45)
[2018-05-11 11:52] LABS: BEDSIDE GLUCOSE 135 MG/DL (70-105)
[2018-05-11] MEDS: OLANZapine ORAL DISINTEGRATING TAB 5MG PO (14:46)
[2018-05-11] MEDS: ACETAMINOPHEN TAB 650MG DOSE (2X325MG) PO (14:46)
[2018-05-11 16:42] LABS: BEDSIDE GLUCOSE 159 MG/DL (70-105)
[2018-05-11 20:46] LABS: BEDSIDE GLUCOSE 117 MG/DL (70-105)
[2018-05-11] MEDS: DIVALPROEX 250MG *ER* TAB PO (20:51)
[2018-05-11] MEDS: LATANOPROST 0.005% OPHTH SOLN 2.5 ML OU (20:51)
[2018-05-11] MEDS: rOPINIRole 0.25 MG TAB(REQUIP) PO (20:52)
[2018-05-12] MEDS: LEVOTHYROXINE 25MCG TABLET (0.025MG) PO (06:15)
[2018-05-12] MEDS: HumaLOG INSULIN (NovoLOG) PER UNIT SC ×4 (06:32→21:00)
[2018-05-12 06:37] LABS: BEDSIDE GLUCOSE 118 MG/DL (70-105)
[2018-05-12] MEDS: ACETAMINOPHEN TAB 650MG DOSE (2X325MG) PO (06:40)
[2018-05-12 07:15] LABS: HEMATOCRIT 38.5 % (36.0-47.0); HEMOGLOBIN 12.7 g/dl (12.0-15.5); MEAN CORPUSCULAR HEMOGLOBIN 30.2 pg (27.0-33.0); MEAN CORPUSCULAR VOLUME 91.7 fl (80.0-96.0); PLATELET COUNT, AUTOMATED 288 10^3/uL (150-450); RED CELL DISTRIBUTION WIDTH 12.1 % (11.5-14.5); WHITE BLOOD COUNT 12.8 10^3/uL (4.0-10.0)
[2018-05-12 07:44] LABS: ANION GAP 9 MEQ/L (8-16); BLOOD UREA NITROGEN 16 MG/DL (7-18); CALCIUM LEVEL 8.8 MG/DL (8.5-10.1); CARBON DIOXIDE LEVEL 27 MEQ/L (21-32); CHLORIDE LEVEL 102 MEQ/L (98-107); CREATININE FOR GFR 0.52 MG/DL (0.55-1.30); GLOMERULAR FILTRATION RATE > 60.0 (>51); GLUCOSE, FASTING 129 MG/DL (70-100); POTASSIUM SERUM 4.1 MEQ/L (3.5-5.1); SODIUM LEVEL 138 MEQ/L (136-145)
[2018-05-12] MEDS: clonazePAM 1 MG TAB PO ×2 (08:35→21:19)
[2018-05-12] MEDS: ADVAIR HFA 115/21MCG INHALER INH ×2 (08:35→21:00)
[2018-05-12] MEDS: PANTOPRAZOLE 40MG TAB (PROTONIX) PO (08:35)
[2018-05-12] MEDS: BRIMONIDINE 0.15% OPHTH SOLN 5 ML OS ×2 (08:35→21:20)
[2018-05-12] MEDS: BRINZOLAMIDE 1 % OPHTH SUSP (AZOPT) 10ML OS ×3 (08:36→21:20)
[2018-05-12] MEDS: ASPIRIN 81 MG ENTERIC TAB PO (08:36)
[2018-05-12] MEDS: BENZTROPINE 1 MG TAB PO ×2 (08:36→21:19)
[2018-05-12] MEDS: HALOPERIDOL 10 MG TAB PO ×2 (08:36→21:19)
[2018-05-12] MEDS: LISINOPRIL 20 MG TAB PO (08:36)
[2018-05-12] MEDS: CLOPIDOGREL 75 MG TAB PO (08:36)
[2018-05-12] MEDS: LEVEMIR (INSULIN DETEMIR) 1 UNITS/0.01ML SC ×2 (08:41→21:21)
[2018-05-12 12:00] LABS: BEDSIDE GLUCOSE 125 MG/DL (70-105)
[2018-05-12] MEDS: FUROSEMIDE 20 MG TAB PO (16:02)
[2018-05-12 17:16] LABS: BEDSIDE GLUCOSE 168 MG/DL (70-105)
[2018-05-12] MEDS: rOPINIRole 0.25 MG TAB(REQUIP) PO (21:00)
[2018-05-12] MEDS: LATANOPROST 0.005% OPHTH SOLN 2.5 ML OU ×2 (21:00→23:44)
[2018-05-12] MEDS: DIVALPROEX 250MG *ER* TAB PO (21:20)
[2018-05-13 05:42] LABS: BEDSIDE GLUCOSE 97 MG/DL (70-105)
[2018-05-13] MEDS: LEVOTHYROXINE 25MCG TABLET (0.025MG) PO (05:44)
[2018-05-13] MEDS: ACETAMINOPHEN TAB 650MG DOSE (2X325MG) PO (06:17)
[2018-05-13] MEDS: HumaLOG INSULIN (NovoLOG) PER UNIT SC ×4 (06:59→20:16)
[2018-05-13] MEDS: LEVEMIR (INSULIN DETEMIR) 1 UNITS/0.01ML SC ×2 (09:04→20:16)
[2018-05-13] MEDS: BRINZOLAMIDE 1 % OPHTH SUSP (AZOPT) 10ML OS ×3 (09:05→21:51)
[2018-05-13] MEDS: BRIMONIDINE 0.15% OPHTH SOLN 5 ML OS ×2 (09:05→21:51)
[2018-05-13] MEDS: ADVAIR HFA 115/21MCG INHALER INH ×2 (09:06→20:16)
[2018-05-13] MEDS: LISINOPRIL 20 MG TAB PO (09:07)
[2018-05-13] MEDS: CLOPIDOGREL 75 MG TAB PO (09:07)
[2018-05-13] MEDS: PANTOPRAZOLE 40MG TAB (PROTONIX) PO (09:07)
[2018-05-13] MEDS: BENZTROPINE 1 MG TAB PO ×2 (09:08→20:12)
[2018-05-13] MEDS: HALOPERIDOL 10 MG TAB PO ×2 (09:08→20:12)
[2018-05-13] MEDS: clonazePAM 1 MG TAB PO ×2 (09:08→20:12)
[2018-05-13] MEDS: ASPIRIN 81 MG ENTERIC TAB PO (09:08)
[2018-05-13 11:39] LABS: BEDSIDE GLUCOSE 153 MG/DL (70-105)
[2018-05-13 17:03] LABS: BEDSIDE GLUCOSE 113 MG/DL (70-105)
[2018-05-13 20:09] LABS: BEDSIDE GLUCOSE 181 MG/DL (70-105)
[2018-05-13] MEDS: DIVALPROEX 250MG *ER* TAB PO (20:12)
[2018-05-13] MEDS: rOPINIRole 0.25 MG TAB(REQUIP) PO (20:13)
[2018-05-13] MEDS: FUROSEMIDE 20 MG TAB PO (22:40)
[2018-05-14] MEDS: HumaLOG INSULIN (NovoLOG) PER UNIT SC ×4 (06:26→20:58)
[2018-05-14] MEDS: LEVOTHYROXINE 25MCG TABLET (0.025MG) PO (06:26)
[2018-05-14 06:27] LABS: BEDSIDE GLUCOSE 97 MG/DL (70-105)
[2018-05-14] MEDS: LEVEMIR (INSULIN DETEMIR) 1 UNITS/0.01ML SC ×2 (09:27→20:59)
[2018-05-14] MEDS: ADVAIR HFA 115/21MCG INHALER INH ×2 (09:27→21:01)
[2018-05-14] MEDS: BRIMONIDINE 0.15% OPHTH SOLN 5 ML OS ×2 (09:28→21:52)
[2018-05-14] MEDS: BRINZOLAMIDE 1 % OPHTH SUSP (AZOPT) 10ML OS ×3 (09:28→21:52)
[2018-05-14] MEDS: PANTOPRAZOLE 40MG TAB (PROTONIX) PO (09:29)
[2018-05-14] MEDS: clonazePAM 1 MG TAB PO ×2 (09:29→20:57)
[2018-05-14] MEDS: BENZTROPINE 1 MG TAB PO ×2 (09:29→20:57)
[2018-05-14] MEDS: ASPIRIN 81 MG ENTERIC TAB PO (09:29)
[2018-05-14] MEDS: HALOPERIDOL 10 MG TAB PO ×2 (09:29→20:57)
[2018-05-14] MEDS: LISINOPRIL 20 MG TAB PO (09:29)
[2018-05-14] MEDS: CLOPIDOGREL 75 MG TAB PO (09:29)
[2018-05-14 11:42] LABS: BEDSIDE GLUCOSE 143 MG/DL (70-105)
[2018-05-14] MEDS: ACETAMINOPHEN TAB 650MG DOSE (2X325MG) PO (11:48)
[2018-05-14 16:59] LABS: BEDSIDE GLUCOSE 113 MG/DL (70-105)
[2018-05-14 20:55] LABS: BEDSIDE GLUCOSE 157 MG/DL (70-105)
[2018-05-14] MEDS: DIVALPROEX 250MG *ER* TAB PO (20:57)
[2018-05-14] MEDS: rOPINIRole 0.25 MG TAB(REQUIP) PO (20:57)
[2018-05-14] MEDS: LATANOPROST 0.005% OPHTH SOLN 2.5 ML OU (21:52)
[2018-05-15] MEDS: LEVOTHYROXINE 25MCG TABLET (0.025MG) PO (06:14)
[2018-05-15] MEDS: HumaLOG INSULIN (NovoLOG) PER UNIT SC ×4 (06:39→21:00)
[2018-05-15 06:40] LABS: BEDSIDE GLUCOSE 66 MG/DL (70-105)
[2018-05-15] MEDS: LEVEMIR (INSULIN DETEMIR) 1 UNITS/0.01ML SC ×2 (08:12→22:16)
[2018-05-15] MEDS: ADVAIR HFA 115/21MCG INHALER INH ×2 (08:13→22:08)
[2018-05-15] MEDS: BRINZOLAMIDE 1 % OPHTH SUSP (AZOPT) 10ML OS ×3 (08:13→22:08)
[2018-05-15] MEDS: BRIMONIDINE 0.15% OPHTH SOLN 5 ML OS ×2 (08:14→22:08)
[2018-05-15] MEDS: CLOPIDOGREL 75 MG TAB PO (08:15)
[2018-05-15] MEDS: ASPIRIN 81 MG ENTERIC TAB PO (08:15)
[2018-05-15] MEDS: PANTOPRAZOLE 40MG TAB (PROTONIX) PO (08:15)
[2018-05-15] MEDS: clonazePAM 1 MG TAB PO ×2 (08:15→22:07)
[2018-05-15] MEDS: HALOPERIDOL 10 MG TAB PO ×2 (08:15→22:08)
[2018-05-15] MEDS: BENZTROPINE 1 MG TAB PO ×2 (08:15→22:08)
[2018-05-15] MEDS: LISINOPRIL 20 MG TAB PO (08:16)
[2018-05-15] MEDS: NYSTATIN 100,000 UNITS/GM TOPICAL PWD 15 GM TOP (10:56)
[2018-05-15 11:47] LABS: BEDSIDE GLUCOSE 131 MG/DL (70-105)
[2018-05-15] MEDS: ACETAMINOPHEN TAB 650MG DOSE (2X325MG) PO (13:10)
[2018-05-15] MEDS: ALBUTEROL 90 MCG/ACT 8GM HFA INHALER INH (16:07)
[2018-05-15 17:02] LABS: BEDSIDE GLUCOSE 101 MG/DL (70-105)
[2018-05-15 22:00] LABS: BEDSIDE GLUCOSE 143 MG/DL (70-105)
[2018-05-15] MEDS: DIVALPROEX 250MG *ER* TAB PO (22:08)
[2018-05-15] MEDS: rOPINIRole 0.25 MG TAB(REQUIP) PO (22:08)
[2018-05-15] MEDS: LATANOPROST 0.005% OPHTH SOLN 2.5 ML OU (22:09)
[2018-05-16] MEDS: OLANZapine ORAL DISINTEGRATING TAB 5MG PO (00:27)
[2018-05-16] MEDS: LEVOTHYROXINE 25MCG TABLET (0.025MG) PO (06:26)
[2018-05-16 06:38] LABS: BEDSIDE GLUCOSE 91 MG/DL (70-105)
[2018-05-16] MEDS: HumaLOG INSULIN (NovoLOG) PER UNIT SC ×4 (06:50→21:00)
[2018-05-16] MEDS: ACETAMINOPHEN TAB 650MG DOSE (2X325MG) PO ×3 (06:56→22:02)
[2018-05-16 07:30] LABS: HEMATOCRIT 38.3 % (36.0-47.0); HEMOGLOBIN 12.8 g/dl (12.0-15.5); MEAN CORPUSCULAR HEMOGLOBIN 30.4 pg (27.0-33.0); MEAN CORPUSCULAR HGB CONC 33.4 g/dl (32.0-36.5); PLATELET COUNT, AUTOMATED 236 10^3/uL (150-450); RED BLOOD COUNT 4.21 10^6/uL (4.00-5.40); RED CELL DISTRIBUTION WIDTH 11.9 % (11.5-14.5); WHITE BLOOD COUNT 10.5 10^3/uL (4.0-10.0)
[2018-05-16 07:48] LABS: ANION GAP 7 MEQ/L (8-16); BLOOD UREA NITROGEN 12 MG/DL (7-18); CALCIUM LEVEL 8.9 MG/DL (8.5-10.1); CARBON DIOXIDE LEVEL 29 MEQ/L (21-32); CHLORIDE LEVEL 101 MEQ/L (98-107); CREATININE FOR GFR 0.48 MG/DL (0.55-1.30); GLOMERULAR FILTRATION RATE > 60.0 (>51); GLUCOSE, FASTING 87 MG/DL (70-100); SODIUM LEVEL 137 MEQ/L (136-145); VALPROIC ACID (DEPAKOTE) 77.1 UG/ML (50.0-100.0)
[2018-05-16] MEDS: BRIMONIDINE 0.15% OPHTH SOLN 5 ML OS ×2 (08:26→21:09)
[2018-05-16] MEDS: BRINZOLAMIDE 1 % OPHTH SUSP (AZOPT) 10ML OS ×3 (08:26→21:09)
[2018-05-16] MEDS: clonazePAM 1 MG TAB PO ×2 (08:27→21:07)
[2018-05-16] MEDS: LISINOPRIL 20 MG TAB PO (08:27)
[2018-05-16] MEDS: PANTOPRAZOLE 40MG TAB (PROTONIX) PO (08:27)
[2018-05-16] MEDS: BENZTROPINE 1 MG TAB PO ×2 (08:27→21:07)
[2018-05-16] MEDS: HALOPERIDOL 10 MG TAB PO (08:27)
[2018-05-16] MEDS: ASPIRIN 81 MG ENTERIC TAB PO (08:27)
[2018-05-16] MEDS: CLOPIDOGREL 75 MG TAB PO (08:27)
[2018-05-16] MEDS: ADVAIR HFA 115/21MCG INHALER INH ×2 (08:27→21:09)
[2018-05-16] MEDS: LEVEMIR (INSULIN DETEMIR) 1 UNITS/0.01ML SC ×2 (08:31→21:24)
[2018-05-16 12:39] LABS: BEDSIDE GLUCOSE 119 MG/DL (70-105)
[2018-05-16] MEDS ORDERED: OLANZapine ORAL DISINTEGRATING TAB 5MG PO (14:00)
[2018-05-16] MEDS: CEFDINIR 300 MG CAP (OMNICEF) PO ×2 (14:40→21:07)
[2018-05-16] MEDS: QUEtiapine FUMARATE 100 MG TAB PO ×2 (15:43→21:07)
[2018-05-16] MEDS ORDERED: clonazePAM 1 MG TAB PO (16:00)
[2018-05-16 16:12] LABS: APPEARANCE, URINE HAZY (CLEAR); BACTERIA, URINE AUTO 1+ (NEGATIVE); BILIRUBIN, URINE AUTO NEGATIVE (NEGATIVE); BLOOD, URINE BLOOD NEGATIVE (NEGATIVE); COLOR, URINE STRAW (YELLOW); GLUCOSE, URINE (UA) AUTO NEGATIVE (NEGATIVE); KETONE, URINE AUTO NEGATIVE (NEGATIVE); LEUKOCYTE ESTERASE, URINE AUTO 2+ (NEGATIVE); MUCUS, URINE SMALL (NEGATIVE); NITRITE, URINE AUTO NEGATIVE (NEGATIVE); PROTEIN, URINE AUTO NEGATIVE (NEGATIVE); RBC, URINE AUTO 2 /HPF (0-3); SPECIFIC GRAVITY URINE AUTO 1.006 (1.002-1.035); SQUAMOUS EPITHELIAL CELL UR AU 2 /HPF (0-6); UROBILINOGEN, URINE AUTO 0.2 mg/dL (0.0-2.0); WBC, URINE AUTO 35 /HPF (0-3)
[2018-05-16 17:17] LABS: BEDSIDE GLUCOSE 101 MG/DL (70-105)
[2018-05-16 21:00] LABS: BEDSIDE GLUCOSE 128 MG/DL (70-105)
[2018-05-16] MEDS: HALOPERIDOL 5 MG TAB PO (21:07)
[2018-05-16] MEDS: DIVALPROEX 500MG *ER* TAB PO (21:08)
[2018-05-16] MEDS: LATANOPROST 0.005% OPHTH SOLN 2.5 ML OU (21:09)
[2018-05-16] MEDS: rOPINIRole 0.25 MG TAB(REQUIP) PO (21:10)
[2018-05-17] MEDS: LEVOTHYROXINE 25MCG TABLET (0.025MG) PO (06:12)
[2018-05-17 06:28] LABS: BEDSIDE GLUCOSE 109 MG/DL (70-105)
[2018-05-17] MEDS: HumaLOG INSULIN (NovoLOG) PER UNIT SC ×4 (06:42→20:31)
[2018-05-17 07:15] LABS: BASO % 0.4 % (0.0-1.0); EOS # 0.3 10^3/uL (0.0-0.50); EOS % 3.1 % (0.0-3.0); HEMATOCRIT 36.2 % (36.0-47.0); HEMOGLOBIN 12.1 g/dl (12.0-15.5); IMMATURE GRANULOCYTE % 0.6 % (0-3.0); LYMPH # 2.8 10^3/uL (1.5-4.5); LYMPH % 29.9 % (24.0-44.0); MEAN CORPUSCULAR HEMOGLOBIN 30.6 pg (27.0-33.0); MEAN CORPUSCULAR HGB CONC 33.4 g/dl (32.0-36.5); MEAN CORPUSCULAR VOLUME 91.6 fl (80.0-96.0); MONO # 0.5 10^3/uL (0.0-0.8); MONO % 5.3 % (0.0-5.0); NEUTROPHILS # 5.6 10^3/uL (1.8-7.7); NEUTROPHILS % 60.7 % (36.0-66.0); PLATELET COUNT, AUTOMATED 268 10^3/uL (150-450); REASON FOR REVIEW WBC/LEUKEMIA/BLAST; RED BLOOD COUNT 3.95 10^6/uL (4.00-5.40); RED CELL DISTRIBUTION WIDTH 11.9 % (11.5-14.5); SLIDE REVIEW Report; SOURCE PERIPHERAL SMEAR; WHITE BLOOD COUNT 9.3 10^3/uL (4.0-10.0)
[2018-05-17 07:43] LABS: ALBUMIN 3.3 GM/DL (3.2-5.2); ALBUMIN/GLOBULIN RATIO 1.14 (1.00-1.93); ALKALINE PHOSPHATASE 69 U/L (45-117); ALT/SGPT 22 U/L (12-78); ANION GAP 7 MEQ/L (8-16); AST/SGOT 11 U/L (7-37); BILIRUBIN,TOTAL 0.2 MG/DL (0.2-1.0); BLOOD UREA NITROGEN 13 MG/DL (7-18); CALCIUM LEVEL 8.7 MG/DL (8.5-10.1); CARBON DIOXIDE LEVEL 29 MEQ/L (21-32); CHLORIDE LEVEL 99 MEQ/L (98-107); CHOLESTEROL LEVEL 121 MG/DL (<200); CREATININE FOR GFR 0.43 MG/DL (0.55-1.30); GLOMERULAR FILTRATION RATE > 60.0 (>51); GLUCOSE, FASTING 107 MG/DL (70-100); HDL CHOLESTEROL 42 MG/DL (>40); LDL CHOLESTEROL 58 MG/DL (<100); NON-HDL-C 79 MG/DL; POTASSIUM SERUM 4.7 MEQ/L (3.5-5.1); SODIUM LEVEL 135 MEQ/L (136-145); TOTAL PROTEIN 6.2 GM/DL (6.4-8.2); TRIGLYCERIDES LEVEL 103 MG/DL (<150)
[2018-05-17] MEDS: ADVAIR HFA 115/21MCG INHALER INH ×2 (08:25→20:34)
[2018-05-17] MEDS: BRINZOLAMIDE 1 % OPHTH SUSP (AZOPT) 10ML OS ×3 (08:26→20:27)
[2018-05-17] MEDS: BRIMONIDINE 0.15% OPHTH SOLN 5 ML OS ×2 (08:26→20:26)
[2018-05-17] MEDS: CEFDINIR 300 MG CAP (OMNICEF) PO ×2 (08:26→20:30)
[2018-05-17] MEDS: QUEtiapine FUMARATE 100 MG TAB PO (08:26)
[2018-05-17] MEDS: PANTOPRAZOLE 40MG TAB (PROTONIX) PO (08:26)
[2018-05-17] MEDS: BENZTROPINE 1 MG TAB PO ×2 (08:26→20:30)
[2018-05-17] MEDS: LISINOPRIL 20 MG TAB PO (08:27)
[2018-05-17] MEDS: clonazePAM 1 MG TAB PO ×2 (08:27→20:30)
[2018-05-17] MEDS: CLOPIDOGREL 75 MG TAB PO (08:27)
[2018-05-17] MEDS: ASPIRIN 81 MG ENTERIC TAB PO (08:27)
[2018-05-17] MEDS: LEVEMIR (INSULIN DETEMIR) 1 UNITS/0.01ML SC ×2 (08:30→20:29)
[2018-05-17] MEDS: HALOPERIDOL 5 MG TAB PO ×2 (08:30→08:38)
[2018-05-17 12:02] LABS: BEDSIDE GLUCOSE 129 MG/DL (70-105)
[2018-05-17 17:05] LABS: BEDSIDE GLUCOSE 111 MG/DL (70-105)
[2018-05-17] MEDS: LATANOPROST 0.005% OPHTH SOLN 2.5 ML OU (20:27)
[2018-05-17] MEDS: DIVALPROEX 500MG *ER* TAB PO (20:30)
[2018-05-17] MEDS: QUEtiapine FUMARATE 200 MG TAB PO (20:30)
[2018-05-17 20:31] LABS: BEDSIDE GLUCOSE 117 MG/DL (70-105)
[2018-05-17] MEDS: rOPINIRole 0.25 MG TAB(REQUIP) PO (20:34)
[2018-05-18 06:01] LABS: BEDSIDE GLUCOSE 113 MG/DL (70-105)
[2018-05-18] MEDS: LEVOTHYROXINE 25MCG TABLET (0.025MG) PO (06:10)
[2018-05-18] MEDS: HumaLOG INSULIN (NovoLOG) PER UNIT SC ×4 (06:42→20:31)
[2018-05-18] MEDS: ASPIRIN 81 MG ENTERIC TAB PO (09:46)
[2018-05-18] MEDS: clonazePAM 1 MG TAB PO ×2 (09:47→20:29)
[2018-05-18] MEDS: BENZTROPINE 1 MG TAB PO ×2 (09:47→20:30)
[2018-05-18] MEDS: PANTOPRAZOLE 40MG TAB (PROTONIX) PO (09:47)
[2018-05-18] MEDS: BRINZOLAMIDE 1 % OPHTH SUSP (AZOPT) 10ML OS ×3 (09:47→21:35)
[2018-05-18] MEDS: CEFDINIR 300 MG CAP (OMNICEF) PO ×2 (09:47→20:29)
[2018-05-18] MEDS: LISINOPRIL 20 MG TAB PO (09:47)
[2018-05-18] MEDS: CLOPIDOGREL 75 MG TAB PO (09:47)
[2018-05-18] MEDS: QUEtiapine FUMARATE 100 MG TAB PO ×2 (09:47→20:30)
[2018-05-18] MEDS: BRIMONIDINE 0.15% OPHTH SOLN 5 ML OS ×2 (09:47→21:35)
[2018-05-18] MEDS: ADVAIR HFA 115/21MCG INHALER INH ×2 (09:48→20:34)
[2018-05-18] MEDS: LEVEMIR (INSULIN DETEMIR) 1 UNITS/0.01ML SC ×2 (10:00→20:31)
[2018-05-18 12:01] LABS: BEDSIDE GLUCOSE 166 MG/DL (70-105)
[2018-05-18] MEDS: risperiDONE 0.5 MG TAB PO ×2 (12:04→20:29)
[2018-05-18 16:59] LABS: BEDSIDE GLUCOSE 87 MG/DL (70-105)
[2018-05-18] MEDS: DIVALPROEX 250 MG TAB PO (17:01)
[2018-05-18 20:27] LABS: BEDSIDE GLUCOSE 216 MG/DL (70-105)
[2018-05-18] MEDS: rOPINIRole 0.25 MG TAB(REQUIP) PO (20:30)
[2018-05-18] MEDS: DIVALPROEX 250MG *ER* TAB PO (20:30)
[2018-05-18] MEDS ORDERED: QUEtiapine FUMARATE 200 MG TAB PO (21:00)
[2018-05-18] MEDS: LATANOPROST 0.005% OPHTH SOLN 2.5 ML OU (21:35)
[2018-05-19] MEDS: LEVOTHYROXINE 25MCG TABLET (0.025MG) PO (06:22)
[2018-05-19] MEDS: HumaLOG INSULIN (NovoLOG) PER UNIT SC ×4 (06:25→20:39)
[2018-05-19 06:26] LABS: BEDSIDE GLUCOSE 72 MG/DL (70-105)
[2018-05-19 07:32] LABS: ANION GAP 7 MEQ/L (8-16); BLOOD UREA NITROGEN 14 MG/DL (7-18); CALCIUM LEVEL 8.5 MG/DL (8.5-10.1); CARBON DIOXIDE LEVEL 29 MEQ/L (21-32); CHLORIDE LEVEL 100 MEQ/L (98-107); CREATININE FOR GFR 0.48 MG/DL (0.55-1.30); GLOMERULAR FILTRATION RATE > 60.0 (>51); GLUCOSE, FASTING 88 MG/DL (70-100); POTASSIUM SERUM 4.3 MEQ/L (3.5-5.1); SODIUM LEVEL 136 MEQ/L (136-145)
[2018-05-19] MEDS: BRIMONIDINE 0.15% OPHTH SOLN 5 ML OS ×2 (08:38→20:39)
[2018-05-19] MEDS: CEFDINIR 300 MG CAP (OMNICEF) PO ×2 (08:39→20:34)
[2018-05-19] MEDS: BRINZOLAMIDE 1 % OPHTH SUSP (AZOPT) 10ML OS ×3 (08:39→20:39)
[2018-05-19] MEDS: QUEtiapine FUMARATE 50 MG TAB PO (08:39)
[2018-05-19] MEDS: ASPIRIN 81 MG ENTERIC TAB PO (08:39)
[2018-05-19] MEDS: CLOPIDOGREL 75 MG TAB PO (08:39)
[2018-05-19] MEDS: risperiDONE 0.5 MG TAB PO ×2 (08:39→20:35)
[2018-05-19] MEDS: PANTOPRAZOLE 40MG TAB (PROTONIX) PO (08:39)
[2018-05-19] MEDS: BENZTROPINE 1 MG TAB PO ×2 (08:39→20:34)
[2018-05-19] MEDS: clonazePAM 1 MG TAB PO ×2 (08:39→20:34)
[2018-05-19] MEDS: LISINOPRIL 20 MG TAB PO (08:40)
[2018-05-19] MEDS: LEVEMIR (INSULIN DETEMIR) 1 UNITS/0.01ML SC ×2 (08:42→20:39)
[2018-05-19] MEDS: ADVAIR HFA 115/21MCG INHALER INH ×2 (08:48→20:39)
[2018-05-19] MEDS: ACETAMINOPHEN TAB 650MG DOSE (2X325MG) PO (10:48)
[2018-05-19] MEDS: NYSTATIN 100,000 UNITS/GM TOPICAL PWD 15 GM TOP (10:53)
[2018-05-19 12:04] LABS: BEDSIDE GLUCOSE 118 MG/DL (70-105)
[2018-05-19] MEDS: DIVALPROEX 250 MG TAB PO (17:16)
[2018-05-19 17:17] LABS: BEDSIDE GLUCOSE 158 MG/DL (70-105)
[2018-05-19 20:32] LABS: BEDSIDE GLUCOSE 147 MG/DL (70-105)
[2018-05-19] MEDS: QUEtiapine FUMARATE 100 MG TAB PO (20:34)
[2018-05-19] MEDS: rOPINIRole 0.25 MG TAB(REQUIP) PO (20:35)
[2018-05-19] MEDS: DIVALPROEX 250MG *ER* TAB PO (20:35)
[2018-05-19] MEDS: LATANOPROST 0.005% OPHTH SOLN 2.5 ML OU (20:39)
[2018-05-20] MEDS: LEVOTHYROXINE 25MCG TABLET (0.025MG) PO (06:10)
[2018-05-20] MEDS: HumaLOG INSULIN (NovoLOG) PER UNIT SC ×2 (06:16→12:13)
[2018-05-20 06:18] LABS: BEDSIDE GLUCOSE 72 MG/DL (70-105)
[2018-05-20 06:40] LABS: BEDSIDE GLUCOSE 100 MG/DL (70-105)
[2018-05-20] MEDS: clonazePAM 1 MG TAB PO (09:08)
[2018-05-20] MEDS: LISINOPRIL 20 MG TAB PO (09:08)
[2018-05-20] MEDS: CEFDINIR 300 MG CAP (OMNICEF) PO (09:08)
[2018-05-20] MEDS: NYSTATIN 100,000 UNITS/GM TOPICAL PWD 15 GM TOP (09:08)
[2018-05-20] MEDS: PANTOPRAZOLE 40MG TAB (PROTONIX) PO (09:08)
[2018-05-20] MEDS: ASPIRIN 81 MG ENTERIC TAB PO (09:08)
[2018-05-20] MEDS: CLOPIDOGREL 75 MG TAB PO (09:08)
[2018-05-20] MEDS: BENZTROPINE 1 MG TAB PO (09:08)
[2018-05-20] MEDS: QUEtiapine FUMARATE 50 MG TAB PO (09:08)
[2018-05-20] MEDS: LEVEMIR (INSULIN DETEMIR) 1 UNITS/0.01ML SC (09:09)
[2018-05-20] MEDS: ADVAIR HFA 115/21MCG INHALER INH (09:09)
[2018-05-20] MEDS: BRINZOLAMIDE 1 % OPHTH SUSP (AZOPT) 10ML OS (09:09)
[2018-05-20] MEDS: risperiDONE 0.5 MG TAB PO (09:09)
[2018-05-20] MEDS: BRIMONIDINE 0.15% OPHTH SOLN 5 ML OS (09:09)
[2018-05-20 12:14] LABS: BEDSIDE GLUCOSE 103 MG/DL (70-105)
== END 2018-05-20 14:00 | disposition home or self-care (01) | DRG 885 ==
LOC: M PSY 05-11 13:05 → M ED 10:14 → M ED INP 14:51 → M PSY 15:50
DX: F31.5 Bipolar disorder, current episode depressed, severe, with psychotic features (principal); E87.1 Hypo-osmolality and hyponatremia; Z68.41 Body mass index [BMI] 40.0-44.9, adult; I10 Essential (primary) hypertension; J44.9 Chronic obstructive pulmonary disease, unspecified; H40.9 Unspecified glaucoma; E11.9 Type 2 diabetes mellitus without complications; G20 Parkinson's disease; K21.9 Gastro-esophageal reflux disease without esophagitis; E78.00 Pure hypercholesterolemia, unspecified; E66.9 Obesity, unspecified; E03.9 Hypothyroidism, unspecified; H26.9 Unspecified cataract; Z86.73 Personal history of transient ischemic attack (TIA), and cerebral infarction without residual deficits; Z79.82 Long term (current) use of aspirin; Z79.4 Long term (current) use of insulin; Z79.899 Other long term (current) drug therapy; Z88.2 Allergy status to sulfonamides; Z88.8 Allergy status to other drugs, medicaments and biological substances; Z90.49 Acquired absence of other specified parts of digestive tract; Z91.5 Personal history of self-harm

== ENCOUNTER 2018-05-24 11:50 | Inpatient (IN) | payer BC, OTHER, MEDICAID ==
[2018-05-24 13:17] LABS: HEMATOCRIT 38.5 % (36.0-47.0); HEMOGLOBIN 12.6 g/dl (12.0-15.5); MEAN CORPUSCULAR HGB CONC 32.7 g/dl (32.0-36.5); MEAN CORPUSCULAR VOLUME 91.7 fl (80.0-96.0); PLATELET COUNT, AUTOMATED 296 10^3/uL (150-450); RED CELL DISTRIBUTION WIDTH 12.5 % (11.5-14.5); WHITE BLOOD COUNT 13.7 10^3/uL (4.0-10.0)
[2018-05-24 13:48] LABS: AMPHETAMINES LEVEL URINE NEGATIVE (NEGATIVE); BARBITURATES URINE NEGATIVE (NEGATIVE); BENZODIAZEPINES URINE NEGATIVE (NEGATIVE); CANNABINOIDS URINE NEGATIVE (NEGATIVE); COCAINE METABOLITE URINE NEGATIVE (NEGATIVE); METHADONE URINE NEGATIVE (NEGATIVE); OPIATES URINE NEGATIVE (NEGATIVE); PHENCYCLIDINE URINE NEGATIVE (NEGATIVE)
[2018-05-24 14:02] LABS: ACETAMINOPHEN LEVEL < 2.0 UG/ML (10.0-30.0); ALBUMIN 3.6 GM/DL (3.2-5.2); ALBUMIN/GLOBULIN RATIO 1.13 (1.00-1.93); ALKALINE PHOSPHATASE 81 U/L (45-117); ALT/SGPT 34 U/L (12-78); ANION GAP 11 MEQ/L (8-16); AST/SGOT 16 U/L (7-37); BILIRUBIN,DIRECT < 0.1 MG/DL (0.0-0.2); BILIRUBIN,TOTAL 0.3 MG/DL (0.2-1.0); BLOOD UREA NITROGEN 21 MG/DL (7-18); CALCIUM LEVEL 8.8 MG/DL (8.5-10.1); CARBON DIOXIDE LEVEL 24 MEQ/L (21-32); CHLORIDE LEVEL 104 MEQ/L (98-107); CREATININE FOR GFR 0.74 MG/DL (0.55-1.30); ETHYL ALCOHOL (ETHANOL) < 0.003 % (0.000-0.010); GLOMERULAR FILTRATION RATE > 60.0 (>51); GLUCOSE, FASTING 265 MG/DL (70-100); POTASSIUM SERUM 3.9 MEQ/L (3.5-5.1); SALICYLATE LEVEL < 1.7 MG/DL (5.0-30.0); SODIUM LEVEL 139 MEQ/L (136-145); TOTAL PROTEIN 6.8 GM/DL (6.4-8.2)
[2018-05-24] MEDS ORDERED: MAALOX 30 ML SUSP *UDC PO (16:45)
[2018-05-24] MEDS ORDERED: MOM 30ML SUSPENSION UDC PO (16:45)
[2018-05-24] MEDS: FUROSEMIDE 20 MG TAB PO (17:00)
[2018-05-24] MEDS ORDERED: GLUCAGON FOR INJ 1 MG VIAL (J1610) SC (17:30)
[2018-05-24] MEDS ORDERED: GLUCOSE 4 GM CHEW TABLET PO (17:30)
[2018-05-24] MEDS ORDERED: DEXTROSE 50% 50 ML SYRINGE IV (17:30)
[2018-05-24] MEDS: HumaLOG INSULIN (NovoLOG) PER UNIT SC ×2 (17:30→21:00)
[2018-05-24] MEDS ORDERED: DIVALPROEX 500MG *ER* TAB PO (21:00)
[2018-05-24] MEDS: QUEtiapine FUMARATE 100 MG TAB PO (21:57)
[2018-05-24] MEDS: BENZTROPINE 0.5 MG TAB PO (21:57)
[2018-05-24] MEDS: DIVALPROEX 250MG *ER* TAB PO (21:57)
[2018-05-24] MEDS: rOPINIRole 0.25 MG TAB(REQUIP) PO (21:58)
[2018-05-24] MEDS: risperiDONE 0.5 MG TAB PO (21:58)
[2018-05-24] MEDS: LEVEMIR (INSULIN DETEMIR) 1 UNITS/0.01ML SC (21:59)
[2018-05-24] MEDS: LATANOPROST 0.005% OPHTH SOLN 2.5 ML OU (22:11)
[2018-05-24] MEDS: ADVAIR HFA 115/21MCG INHALER INH (22:11)
[2018-05-24] MEDS: BRINZOLAMIDE 1 % OPHTH SUSP (AZOPT) 10ML OS (22:12)
[2018-05-24] MEDS: BRIMONIDINE 0.15% OPHTH SOLN 5 ML OS (22:12)
[2018-05-24 22:17] LABS: BEDSIDE GLUCOSE 200 MG/DL (70-105)
[2018-05-25] MEDS: LEVOTHYROXINE 25MCG TABLET (0.025MG) PO (06:06)
[2018-05-25 06:33] LABS: BEDSIDE GLUCOSE 109 MG/DL (70-105)
[2018-05-25] MEDS: HumaLOG INSULIN (NovoLOG) PER UNIT SC ×4 (06:35→21:00)
[2018-05-25] MEDS: LEVEMIR (INSULIN DETEMIR) 1 UNITS/0.01ML SC ×2 (10:00→21:07)
[2018-05-25] MEDS: PANTOPRAZOLE 40MG TAB (PROTONIX) PO (10:01)
[2018-05-25] MEDS: DIVALPROEX 250MG *ER* TAB PO ×2 (10:01→21:02)
[2018-05-25] MEDS: FUROSEMIDE 20 MG TAB PO (10:01)
[2018-05-25] MEDS: ASPIRIN 81 MG ENTERIC TAB PO (10:01)
[2018-05-25] MEDS: BRINZOLAMIDE 1 % OPHTH SUSP (AZOPT) 10ML OS ×3 (10:02→21:03)
[2018-05-25] MEDS: BRIMONIDINE 0.15% OPHTH SOLN 5 ML OS ×2 (10:02→21:03)
[2018-05-25] MEDS: QUEtiapine FUMARATE 50 MG TAB PO (10:02)
[2018-05-25] MEDS: BENZTROPINE 0.5 MG TAB PO ×2 (10:02→21:01)
[2018-05-25] MEDS: CLOPIDOGREL 75 MG TAB PO (10:02)
[2018-05-25] MEDS: ADVAIR HFA 115/21MCG INHALER INH ×2 (10:02→21:00)
[2018-05-25] MEDS: risperiDONE 0.5 MG TAB PO ×2 (10:02→21:01)
[2018-05-25] MEDS: LISINOPRIL 20 MG TAB PO (10:06)
[2018-05-25 11:36] LABS: BEDSIDE GLUCOSE 253 MG/DL (70-105)
[2018-05-25] MEDS: clonazePAM 1 MG TAB PO ×2 (14:55→21:01)
[2018-05-25] MEDS: LITHIUM CARBONATE 150 MG CAP PO ×2 (15:01→21:01)
[2018-05-25 16:33] LABS: KETONE, URINE AUTO RFX NEGATIVE (NEGATIVE); MUCUS, URINE RFX SMALL (NEGATIVE); NITRITE, URINE AUTO RFX NEGATIVE (NEGATIVE); RBC, URINE AUTO RFX 0 /HPF (0-3); SPECIFIC GRAVITY UR AUTO RFX 1.013 (1.002-1.035); SQUAM EPITHELIAL CELL UR AURFX 2 /HPF (0-6); WBC, URINE AUTO RFX 2 /HPF (0-3)
[2018-05-25 16:49] LABS: BEDSIDE GLUCOSE 134 MG/DL (70-105)
[2018-05-25 17:08] LABS: LEUKOCYTE ESTERASE UR AUTO RFX 1+ (NEGATIVE)
[2018-05-25 20:58] LABS: BEDSIDE GLUCOSE 150 MG/DL (70-105)
[2018-05-25] MEDS: QUEtiapine FUMARATE 100 MG TAB PO (21:01)
[2018-05-25] MEDS: rOPINIRole 0.25 MG TAB(REQUIP) PO (21:02)
[2018-05-25] MEDS: LATANOPROST 0.005% OPHTH SOLN 2.5 ML OU (21:03)
[2018-05-26] MEDS: LEVOTHYROXINE 25MCG TABLET (0.025MG) PO (06:00)
[2018-05-26 06:30] LABS: BEDSIDE GLUCOSE 158 MG/DL (70-105)
[2018-05-26] MEDS: HumaLOG INSULIN (NovoLOG) PER UNIT SC ×4 (07:10→21:00)
[2018-05-26] MEDS: LISINOPRIL 20 MG TAB PO (08:11)
[2018-05-26] MEDS: ADVAIR HFA 115/21MCG INHALER INH ×2 (08:11→21:00)
[2018-05-26] MEDS: BRIMONIDINE 0.15% OPHTH SOLN 5 ML OS ×2 (08:11→21:00)
[2018-05-26] MEDS: clonazePAM 1 MG TAB PO ×2 (08:11→21:00)
[2018-05-26] MEDS: ASPIRIN 81 MG ENTERIC TAB PO (08:11)
[2018-05-26] MEDS: PANTOPRAZOLE 40MG TAB (PROTONIX) PO (08:11)
[2018-05-26] MEDS: BENZTROPINE 0.5 MG TAB PO ×2 (08:11→21:00)
[2018-05-26] MEDS: BRINZOLAMIDE 1 % OPHTH SUSP (AZOPT) 10ML OS ×3 (08:11→21:00)
[2018-05-26] MEDS: LITHIUM CARBONATE 150 MG CAP PO ×3 (08:11→21:00)
[2018-05-26] MEDS: CLOPIDOGREL 75 MG TAB PO (08:11)
[2018-05-26] MEDS: risperiDONE 0.5 MG TAB PO ×2 (08:12→21:00)
[2018-05-26] MEDS: DIVALPROEX 250MG *ER* TAB PO ×2 (08:12→21:00)
[2018-05-26 08:18] LABS: HEMATOCRIT 38.8 % (36.0-47.0); HEMOGLOBIN 12.5 g/dl (12.0-15.5); MEAN CORPUSCULAR HEMOGLOBIN 30.1 pg (27.0-33.0); MEAN CORPUSCULAR HGB CONC 32.2 g/dl (32.0-36.5); MEAN CORPUSCULAR VOLUME 93.5 fl (80.0-96.0); PLATELET COUNT, AUTOMATED 259 10^3/uL (150-450); RED BLOOD COUNT 4.15 10^6/uL (4.00-5.40); RED CELL DISTRIBUTION WIDTH 12.2 % (11.5-14.5); WHITE BLOOD COUNT 12.7 10^3/uL (4.0-10.0)
[2018-05-26 08:47] LABS: ANION GAP 7 MEQ/L (8-16); BLOOD UREA NITROGEN 21 MG/DL (7-18); CALCIUM LEVEL 8.8 MG/DL (8.5-10.1); CARBON DIOXIDE LEVEL 28 MEQ/L (21-32); CHLORIDE LEVEL 102 MEQ/L (98-107); CREATININE FOR GFR 0.65 MG/DL (0.55-1.30); FREE T4 1.17 NG/DL (0.76-1.46); GLOMERULAR FILTRATION RATE > 60.0 (>51); GLUCOSE, FASTING 145 MG/DL (70-100); POTASSIUM SERUM 4.1 MEQ/L (3.5-5.1); SODIUM LEVEL 137 MEQ/L (136-145)
[2018-05-26] MEDS: LEVEMIR (INSULIN DETEMIR) 1 UNITS/0.01ML SC ×2 (09:32→21:00)
[2018-05-26 12:37] LABS: BEDSIDE GLUCOSE 155 MG/DL (70-105)
[2018-05-26] MEDS: ACETAMINOPHEN TAB 650MG DOSE (2X325MG) PO ×2 (16:07→23:08)
[2018-05-26] MEDS: FUROSEMIDE 20 MG TAB PO (16:18)
[2018-05-26] MEDS: ALBUTEROL 90 MCG/ACT 8GM HFA INHALER INH (16:19)
[2018-05-26 17:18] LABS: BEDSIDE GLUCOSE 171 MG/DL (70-105)
[2018-05-26] MEDS: LATANOPROST 0.005% OPHTH SOLN 2.5 ML OU (21:00)
[2018-05-26] MEDS: rOPINIRole 0.25 MG TAB(REQUIP) PO (21:00)
[2018-05-26] MEDS: QUEtiapine FUMARATE 100 MG TAB PO (21:00)
[2018-05-26 23:38] LABS: BEDSIDE GLUCOSE 137 MG/DL (70-105)
[2018-05-27] MEDS: ALBUTEROL 90 MCG/ACT 8GM HFA INHALER INH ×3 (03:47→15:12)
[2018-05-27 03:58] LABS: BEDSIDE GLUCOSE 137 MG/DL (70-105)
[2018-05-27] MEDS: LEVOTHYROXINE 25MCG TABLET (0.025MG) PO (04:09)
[2018-05-27] MEDS: BENZTROPINE 0.5 MG TAB PO ×2 (04:11→09:25)
[2018-05-27] MEDS: clonazePAM 1 MG TAB PO ×3 (04:15→21:00)
[2018-05-27] MEDS: QUEtiapine FUMARATE 100 MG TAB PO ×2 (04:15→21:00)
[2018-05-27] MEDS: DIVALPROEX 250MG *ER* TAB PO ×3 (04:15→21:00)
[2018-05-27] MEDS: rOPINIRole 0.25 MG TAB(REQUIP) PO ×2 (04:15→21:00)
[2018-05-27] MEDS: HumaLOG INSULIN (NovoLOG) PER UNIT SC ×4 (07:19→21:00)
[2018-05-27] MEDS: BRINZOLAMIDE 1 % OPHTH SUSP (AZOPT) 10ML OS ×3 (09:25→21:00)
[2018-05-27] MEDS: LEVEMIR (INSULIN DETEMIR) 1 UNITS/0.01ML SC ×2 (09:25→21:00)
[2018-05-27] MEDS: LITHIUM CARBONATE 150 MG CAP PO ×3 (09:25→21:00)
[2018-05-27] MEDS: BRIMONIDINE 0.15% OPHTH SOLN 5 ML OS ×2 (09:25→21:00)
[2018-05-27] MEDS: CEFDINIR 300 MG CAP (OMNICEF) PO ×2 (09:26→21:00)
[2018-05-27] MEDS: PANTOPRAZOLE 40MG TAB (PROTONIX) PO (09:26)
[2018-05-27] MEDS: risperiDONE 0.5 MG TAB PO (09:26)
[2018-05-27] MEDS: ADVAIR HFA 115/21MCG INHALER INH ×2 (09:26→21:00)
[2018-05-27] MEDS: ASPIRIN 81 MG ENTERIC TAB PO (09:26)
[2018-05-27] MEDS: CLOPIDOGREL 75 MG TAB PO (09:26)
[2018-05-27] MEDS: LISINOPRIL 20 MG TAB PO (09:27)
[2018-05-27 12:05] LABS: BEDSIDE GLUCOSE 206 MG/DL (70-105)
[2018-05-27] MEDS: OLANZapine ORAL DISINTEGRATING TAB 5MG PO (15:18)
[2018-05-27 16:56] LABS: BEDSIDE GLUCOSE 165 MG/DL (70-105)
[2018-05-27] MEDS: LORazepam 2 MG TAB PO (18:23)
[2018-05-27] MEDS: diphenhydrAMINE 25 MG CAP PO (18:23)
[2018-05-27] MEDS: LORazepam 2 MG/ML VIAL (J2060) IM ×2 (20:03→20:10)
[2018-05-27] MEDS: HALOPERIDOL 5 MG/ML VIAL (J1630) IM ×2 (20:03→20:10)
[2018-05-27] MEDS: diphenhydrAMINE INJ 50MG/ML VIAL (J1200) IM ×2 (20:04→20:10)
[2018-05-27] MEDS: risperiDONE 1 MG TAB PO (21:00)
[2018-05-27] MEDS: LATANOPROST 0.005% OPHTH SOLN 2.5 ML OU (21:00)
[2018-05-27] MEDS: BENZTROPINE 1 MG TAB PO (21:00)
[2018-05-28] MEDS: LEVOTHYROXINE 25MCG TABLET (0.025MG) PO (06:24)
[2018-05-28] MEDS: HumaLOG INSULIN (NovoLOG) PER UNIT SC ×4 (06:26→21:00)
[2018-05-28 11:22] LABS: BEDSIDE GLUCOSE 129 MG/DL (70-105)
[2018-05-28] MEDS: LEVEMIR (INSULIN DETEMIR) 1 UNITS/0.01ML SC ×2 (11:49→21:19)
[2018-05-28] MEDS: DIVALPROEX 250MG *ER* TAB PO ×2 (11:50→21:19)
[2018-05-28] MEDS: BRIMONIDINE 0.15% OPHTH SOLN 5 ML OS ×2 (11:50→21:00)
[2018-05-28] MEDS: LISINOPRIL 20 MG TAB PO (11:51)
[2018-05-28] MEDS: PANTOPRAZOLE 40MG TAB (PROTONIX) PO (11:51)
[2018-05-28] MEDS: CEFDINIR 300 MG CAP (OMNICEF) PO ×2 (11:51→21:19)
[2018-05-28] MEDS: LITHIUM CARBONATE 150 MG CAP PO ×3 (11:51→21:19)
[2018-05-28] MEDS: BENZTROPINE 1 MG TAB PO ×2 (11:51→21:18)
[2018-05-28] MEDS: risperiDONE 1 MG TAB PO ×2 (11:52→21:18)
[2018-05-28] MEDS: BRINZOLAMIDE 1 % OPHTH SUSP (AZOPT) 10ML OS ×3 (11:52→21:00)
[2018-05-28] MEDS: clonazePAM 1 MG TAB PO ×2 (11:52→21:00)
[2018-05-28] MEDS: ASPIRIN 81 MG ENTERIC TAB PO (11:52)
[2018-05-28] MEDS: CLOPIDOGREL 75 MG TAB PO (11:52)
[2018-05-28] MEDS: ADVAIR HFA 115/21MCG INHALER INH ×2 (11:53→21:22)
[2018-05-28 16:56] LABS: BEDSIDE GLUCOSE 120 MG/DL (70-105)
[2018-05-28] MEDS: LATANOPROST 0.005% OPHTH SOLN 2.5 ML OU (21:00)
[2018-05-28] MEDS: QUEtiapine FUMARATE 100 MG TAB PO (21:00)
[2018-05-28] MEDS: rOPINIRole 0.25 MG TAB(REQUIP) PO (21:00)
[2018-05-28 21:20] LABS: BEDSIDE GLUCOSE 166 MG/DL (70-105)
[2018-05-28] MEDS: HALOPERIDOL 5 MG/ML VIAL (J1630) IM (21:55)
[2018-05-28] MEDS: diphenhydrAMINE INJ 50MG/ML VIAL (J1200) IM (21:55)
[2018-05-28] MEDS: LORazepam 2 MG/ML VIAL (J2060) IM (21:55)
[2018-05-29] MEDS: LEVOTHYROXINE 25MCG TABLET (0.025MG) PO (06:15)
[2018-05-29] MEDS: HumaLOG INSULIN (NovoLOG) PER UNIT SC ×4 (06:21→20:28)
[2018-05-29 06:22] LABS: BEDSIDE GLUCOSE 99 MG/DL (70-105)
[2018-05-29] MEDS: LEVEMIR (INSULIN DETEMIR) 1 UNITS/0.01ML SC ×2 (08:09→20:28)
[2018-05-29] MEDS: BRIMONIDINE 0.15% OPHTH SOLN 5 ML OS ×2 (08:10→21:00)
[2018-05-29] MEDS: BRINZOLAMIDE 1 % OPHTH SUSP (AZOPT) 10ML OS ×3 (08:10→21:00)
[2018-05-29] MEDS: ADVAIR HFA 115/21MCG INHALER INH ×2 (08:10→20:29)
[2018-05-29] MEDS: risperiDONE 2 MG TAB PO ×3 (08:13→20:28)
[2018-05-29] MEDS: PANTOPRAZOLE 40MG TAB (PROTONIX) PO (08:13)
[2018-05-29] MEDS: DIVALPROEX 250MG *ER* TAB PO ×2 (08:13→20:27)
[2018-05-29] MEDS: CLOPIDOGREL 75 MG TAB PO (08:14)
[2018-05-29] MEDS: ASPIRIN 81 MG ENTERIC TAB PO (08:14)
[2018-05-29] MEDS: clonazePAM 1 MG TAB PO ×2 (08:14→20:28)
[2018-05-29] MEDS: QUEtiapine FUMARATE 200 MG TAB PO (08:14)
[2018-05-29] MEDS: CEFDINIR 300 MG CAP (OMNICEF) PO ×2 (08:14→20:27)
[2018-05-29] MEDS: LITHIUM CARBONATE 150 MG CAP PO ×3 (08:14→20:28)
[2018-05-29] MEDS: LISINOPRIL 20 MG TAB PO (08:14)
[2018-05-29] MEDS: BENZTROPINE 1 MG TAB PO ×2 (08:14→20:28)
[2018-05-29 12:06] LABS: BEDSIDE GLUCOSE 114 MG/DL (70-105)
[2018-05-29 16:51] LABS: BEDSIDE GLUCOSE 99 MG/DL (70-105)
[2018-05-29] MEDS: rOPINIRole 0.25 MG TAB(REQUIP) PO (20:27)
[2018-05-29 20:28] LABS: BEDSIDE GLUCOSE 154 MG/DL (70-105)
[2018-05-29] MEDS: LATANOPROST 0.005% OPHTH SOLN 2.5 ML OU (21:00)
[2018-05-29] MEDS: ALBUTEROL 90 MCG/ACT 8GM HFA INHALER INH (22:42)
[2018-05-29] MEDS: QUEtiapine FUMARATE 50 MG TAB PO (23:05)
[2018-05-29] MEDS: OLANZapine ORAL DISINTEGRATING TAB 5MG PO (23:14)
[2018-05-30] MEDS: LEVOTHYROXINE 25MCG TABLET (0.025MG) PO (06:12)
[2018-05-30] MEDS: HumaLOG INSULIN (NovoLOG) PER UNIT SC ×4 (06:46→21:00)
[2018-05-30 06:47] LABS: BEDSIDE GLUCOSE 69 MG/DL (70-105)
[2018-05-30 06:58] LABS: HEMATOCRIT 38.6 % (36.0-47.0); HEMOGLOBIN 12.7 g/dl (12.0-15.5); MEAN CORPUSCULAR HEMOGLOBIN 30.2 pg (27.0-33.0); MEAN CORPUSCULAR HGB CONC 32.9 g/dl (32.0-36.5); MEAN CORPUSCULAR VOLUME 91.7 fl (80.0-96.0); PLATELET COUNT, AUTOMATED 271 10^3/uL (150-450); RED BLOOD COUNT 4.21 10^6/uL (4.00-5.40); RED CELL DISTRIBUTION WIDTH 12.2 % (11.5-14.5); WHITE BLOOD COUNT 11.6 10^3/uL (4.0-10.0)
[2018-05-30 07:23] LABS: ANION GAP 7 MEQ/L (8-16); BLOOD UREA NITROGEN 11 MG/DL (7-18); CALCIUM LEVEL 9.2 MG/DL (8.5-10.1); CARBON DIOXIDE LEVEL 29 MEQ/L (21-32); CHLORIDE LEVEL 103 MEQ/L (98-107); GLOMERULAR FILTRATION RATE > 60.0 (>51); GLUCOSE, FASTING 73 MG/DL (70-100); POTASSIUM SERUM 4.4 MEQ/L (3.5-5.1); SODIUM LEVEL 139 MEQ/L (136-145)
[2018-05-30] MEDS: DIVALPROEX 250MG *ER* TAB PO ×2 (08:45→21:09)
[2018-05-30] MEDS: PANTOPRAZOLE 40MG TAB (PROTONIX) PO (08:45)
[2018-05-30] MEDS: ASPIRIN 81 MG ENTERIC TAB PO (08:45)
[2018-05-30] MEDS: CLOPIDOGREL 75 MG TAB PO (08:46)
[2018-05-30] MEDS: CEFDINIR 300 MG CAP (OMNICEF) PO ×2 (08:46→21:09)
[2018-05-30] MEDS: LISINOPRIL 20 MG TAB PO (08:46)
[2018-05-30] MEDS: clonazePAM 1 MG TAB PO ×2 (08:47→21:09)
[2018-05-30] MEDS: BRINZOLAMIDE 1 % OPHTH SUSP (AZOPT) 10ML OS ×3 (08:47→21:29)
[2018-05-30] MEDS: risperiDONE 2 MG TAB PO ×3 (08:47→21:09)
[2018-05-30] MEDS: LITHIUM CARBONATE 150 MG CAP PO ×4 (08:47→21:09)
[2018-05-30] MEDS: BRIMONIDINE 0.15% OPHTH SOLN 5 ML OS ×2 (08:47→21:29)
[2018-05-30] MEDS: BENZTROPINE 1 MG TAB PO ×2 (08:47→21:09)
[2018-05-30] MEDS: ADVAIR HFA 115/21MCG INHALER INH ×2 (08:48→21:08)
[2018-05-30] MEDS: LEVEMIR (INSULIN DETEMIR) 1 UNITS/0.01ML SC ×2 (08:48→21:39)
[2018-05-30 11:59] LABS: BEDSIDE GLUCOSE 129 MG/DL (70-105)
[2018-05-30] MEDS: QUEtiapine FUMARATE 50 MG TAB PO (13:44)
[2018-05-30 16:59] LABS: BEDSIDE GLUCOSE 150 MG/DL (70-105)
[2018-05-30 20:35] LABS: LITHIUM LEVEL 0.36 MEQ/L (0.60-1.20)
[2018-05-30] MEDS: rOPINIRole 0.25 MG TAB(REQUIP) PO (21:09)
[2018-05-30 21:26] LABS: BEDSIDE GLUCOSE 153 MG/DL (70-105)
[2018-05-30] MEDS: LATANOPROST 0.005% OPHTH SOLN 2.5 ML OU (21:29)
[2018-05-31] MEDS: OLANZapine ORAL DISINTEGRATING TAB 5MG PO ×2 (01:04→20:17)
[2018-05-31] MEDS: QUEtiapine FUMARATE 50 MG TAB PO ×3 (01:04→20:17)
[2018-05-31] MEDS: LEVOTHYROXINE 25MCG TABLET (0.025MG) PO (05:56)
[2018-05-31] MEDS: ALBUTEROL 90 MCG/ACT 8GM HFA INHALER INH ×2 (06:43→21:37)
[2018-05-31] MEDS: HumaLOG INSULIN (NovoLOG) PER UNIT SC ×4 (07:14→21:00)
[2018-05-31] MEDS: BRINZOLAMIDE 1 % OPHTH SUSP (AZOPT) 10ML OS ×3 (08:56→20:18)
[2018-05-31] MEDS: BRIMONIDINE 0.15% OPHTH SOLN 5 ML OS ×2 (08:56→20:18)
[2018-05-31] MEDS: clonazePAM 1 MG TAB PO ×2 (08:57→20:18)
[2018-05-31] MEDS: LISINOPRIL 20 MG TAB PO (08:57)
[2018-05-31] MEDS: risperiDONE 2 MG TAB PO ×3 (08:57→20:17)
[2018-05-31] MEDS: CEFDINIR 300 MG CAP (OMNICEF) PO ×2 (08:57→20:17)
[2018-05-31] MEDS: ASPIRIN 81 MG ENTERIC TAB PO (08:58)
[2018-05-31] MEDS: BENZTROPINE 1 MG TAB PO ×2 (08:58→20:17)
[2018-05-31] MEDS: LITHIUM CARBONATE 150 MG CAP PO ×3 (08:58→20:18)
[2018-05-31] MEDS: CLOPIDOGREL 75 MG TAB PO (08:59)
[2018-05-31] MEDS: PANTOPRAZOLE 40MG TAB (PROTONIX) PO (08:59)
[2018-05-31] MEDS: DIVALPROEX 250MG *ER* TAB PO ×2 (08:59→20:17)
[2018-05-31] MEDS: LEVEMIR (INSULIN DETEMIR) 1 UNITS/0.01ML SC ×2 (09:03→21:00)
[2018-05-31] MEDS: ADVAIR HFA 115/21MCG INHALER INH ×2 (09:04→21:45)
[2018-05-31 11:44] LABS: BEDSIDE GLUCOSE 113 MG/DL (70-105)
[2018-05-31 17:00] LABS: BEDSIDE GLUCOSE 138 MG/DL (70-105)
[2018-05-31] MEDS: LATANOPROST 0.005% OPHTH SOLN 2.5 ML OU (20:14)
[2018-05-31] MEDS: rOPINIRole 0.25 MG TAB(REQUIP) PO (20:17)
[2018-05-31 20:22] LABS: BEDSIDE GLUCOSE 186 MG/DL (70-105)
[2018-06-01 06:28] LABS: BEDSIDE GLUCOSE 113 MG/DL (70-105)
[2018-06-01] MEDS: HumaLOG INSULIN (NovoLOG) PER UNIT SC ×4 (06:41→20:30)
[2018-06-01] MEDS: LEVOTHYROXINE 25MCG TABLET (0.025MG) PO (06:41)
[2018-06-01 07:18] LABS: ALBUMIN 3.4 GM/DL (3.2-5.2); ALKALINE PHOSPHATASE 66 U/L (45-117); ALT/SGPT 33 U/L (12-78); AST/SGOT 20 U/L (7-37); BILIRUBIN,DIRECT 0.1 MG/DL (0.0-0.2); BILIRUBIN,TOTAL 0.3 MG/DL (0.2-1.0); CHOLESTEROL LEVEL 141 MG/DL (<200); CHOLESTEROL RISK RATIO 2.937 (<5); HDL CHOLESTEROL 48 MG/DL (>40); LDL CHOLESTEROL 67 MG/DL (<100); NON-HDL-C 93 MG/DL; TOTAL PROTEIN 6.5 GM/DL (6.4-8.2); TRIGLYCERIDES LEVEL 129 MG/DL (<150)
[2018-06-01] MEDS: DIVALPROEX 250MG *ER* TAB PO ×2 (08:41→20:36)
[2018-06-01] MEDS: ADVAIR HFA 115/21MCG INHALER INH ×2 (08:41→20:31)
[2018-06-01] MEDS: BENZTROPINE 1 MG TAB PO ×2 (08:41→20:33)
[2018-06-01] MEDS: BRIMONIDINE 0.15% OPHTH SOLN 5 ML OS ×2 (08:41→20:36)
[2018-06-01] MEDS: clonazePAM 1 MG TAB PO ×2 (08:41→20:32)
[2018-06-01] MEDS: BRINZOLAMIDE 1 % OPHTH SUSP (AZOPT) 10ML OS ×3 (08:41→20:37)
[2018-06-01] MEDS: ASPIRIN 81 MG ENTERIC TAB PO (08:42)
[2018-06-01] MEDS: PANTOPRAZOLE 40MG TAB (PROTONIX) PO (08:42)
[2018-06-01] MEDS: LITHIUM CARBONATE 150 MG CAP PO ×2 (08:42→20:33)
[2018-06-01] MEDS: risperiDONE 2 MG TAB PO ×3 (08:42→20:33)
[2018-06-01] MEDS: LISINOPRIL 20 MG TAB PO (08:42)
[2018-06-01] MEDS: CLOPIDOGREL 75 MG TAB PO (08:42)
[2018-06-01] MEDS: CEFDINIR 300 MG CAP (OMNICEF) PO ×2 (08:42→20:32)
[2018-06-01] MEDS: LEVEMIR (INSULIN DETEMIR) 1 UNITS/0.01ML SC ×2 (08:48→20:35)
[2018-06-01 12:10] LABS: BEDSIDE GLUCOSE 156 MG/DL (70-105)
[2018-06-01] MEDS: ALBUTEROL 90 MCG/ACT 8GM HFA INHALER INH (16:55)
[2018-06-01 17:12] LABS: BEDSIDE GLUCOSE 135 MG/DL (70-105)
[2018-06-01] MEDS: rOPINIRole 0.25 MG TAB(REQUIP) PO (20:32)
[2018-06-01] MEDS: LATANOPROST 0.005% OPHTH SOLN 2.5 ML OU (20:37)
[2018-06-01 20:39] LABS: BEDSIDE GLUCOSE 204 MG/DL (70-105)
[2018-06-02] MEDS: LEVOTHYROXINE 25MCG TABLET (0.025MG) PO (06:16)
[2018-06-02] MEDS: HumaLOG INSULIN (NovoLOG) PER UNIT SC ×4 (06:17→21:00)
[2018-06-02 06:46] LABS: BEDSIDE GLUCOSE 139 MG/DL (70-105)
[2018-06-02] MEDS: PANTOPRAZOLE 40MG TAB (PROTONIX) PO (11:42)
[2018-06-02] MEDS: CEFDINIR 300 MG CAP (OMNICEF) PO ×2 (11:42→21:40)
[2018-06-02] MEDS: BENZTROPINE 1 MG TAB PO ×2 (11:42→21:40)
[2018-06-02] MEDS: CLOPIDOGREL 75 MG TAB PO (11:42)
[2018-06-02] MEDS: ASPIRIN 81 MG ENTERIC TAB PO (11:42)
[2018-06-02] MEDS: risperiDONE 2 MG TAB PO ×3 (11:42→21:40)
[2018-06-02] MEDS: clonazePAM 1 MG TAB PO ×2 (11:43→21:40)
[2018-06-02] MEDS: BRINZOLAMIDE 1 % OPHTH SUSP (AZOPT) 10ML OS ×3 (11:43→21:32)
[2018-06-02] MEDS: LISINOPRIL 20 MG TAB PO (11:43)
[2018-06-02] MEDS: BRIMONIDINE 0.15% OPHTH SOLN 5 ML OS ×2 (11:43→21:32)
[2018-06-02] MEDS: ADVAIR HFA 115/21MCG INHALER INH ×2 (11:45→21:43)
[2018-06-02] MEDS: LITHIUM CARBONATE 150 MG CAP PO ×2 (11:45→21:40)
[2018-06-02] MEDS: DIVALPROEX 250MG *ER* TAB PO ×2 (11:45→21:40)
[2018-06-02] MEDS: LEVEMIR (INSULIN DETEMIR) 1 UNITS/0.01ML SC ×2 (11:55→21:44)
[2018-06-02 12:39] LABS: BEDSIDE GLUCOSE 125 MG/DL (70-105)
[2018-06-02] MEDS: ALBUTEROL 90 MCG/ACT 8GM HFA INHALER INH (14:28)
[2018-06-02] MEDS: FUROSEMIDE 20 MG TAB PO (15:13)
[2018-06-02 17:14] LABS: BEDSIDE GLUCOSE 308 MG/DL (70-105)
[2018-06-02] MEDS: LATANOPROST 0.005% OPHTH SOLN 2.5 ML OU (21:32)
[2018-06-02] MEDS: rOPINIRole 0.25 MG TAB(REQUIP) PO (21:40)
[2018-06-02] MEDS: QUEtiapine FUMARATE 50 MG TAB PO (21:40)
[2018-06-02 21:41] LABS: BEDSIDE GLUCOSE 251 MG/DL (70-105)
[2018-06-02] MEDS: ACETAMINOPHEN TAB 650MG DOSE (2X325MG) PO (22:34)
[2018-06-03] MEDS: LEVOTHYROXINE 25MCG TABLET (0.025MG) PO (06:12)
[2018-06-03] MEDS: HumaLOG INSULIN (NovoLOG) PER UNIT SC ×4 (06:22→20:38)
[2018-06-03 06:35] LABS: BEDSIDE GLUCOSE 127 MG/DL (70-105)
[2018-06-03] MEDS: CEFDINIR 300 MG CAP (OMNICEF) PO ×2 (12:21→20:26)
[2018-06-03] MEDS: LITHIUM CARBONATE 150 MG CAP PO ×2 (12:21→20:26)
[2018-06-03] MEDS: ASPIRIN 81 MG ENTERIC TAB PO (12:22)
[2018-06-03] MEDS: CLOPIDOGREL 75 MG TAB PO (12:22)
[2018-06-03] MEDS: LISINOPRIL 20 MG TAB PO (12:22)
[2018-06-03] MEDS: risperiDONE 2 MG TAB PO ×3 (12:22→20:25)
[2018-06-03] MEDS: DIVALPROEX 250MG *ER* TAB PO ×2 (12:22→20:26)
[2018-06-03] MEDS: BRIMONIDINE 0.15% OPHTH SOLN 5 ML OS ×2 (12:23→20:50)
[2018-06-03] MEDS: ADVAIR HFA 115/21MCG INHALER INH ×2 (12:23→20:26)
[2018-06-03] MEDS: BRINZOLAMIDE 1 % OPHTH SUSP (AZOPT) 10ML OS ×3 (12:23→20:50)
[2018-06-03] MEDS: BENZTROPINE 1 MG TAB PO ×2 (12:23→20:26)
[2018-06-03] MEDS: clonazePAM 1 MG TAB PO ×2 (12:23→20:25)
[2018-06-03] MEDS: PANTOPRAZOLE 40MG TAB (PROTONIX) PO (12:24)
[2018-06-03] MEDS: LEVEMIR (INSULIN DETEMIR) 1 UNITS/0.01ML SC ×2 (12:30→20:37)
[2018-06-03 12:31] LABS: BEDSIDE GLUCOSE 96 MG/DL (70-105)
[2018-06-03] MEDS: ALBUTEROL 90 MCG/ACT 8GM HFA INHALER INH (14:20)
[2018-06-03 17:29] LABS: BEDSIDE GLUCOSE 121 MG/DL (70-105)
[2018-06-03] MEDS: rOPINIRole 0.25 MG TAB(REQUIP) PO (20:26)
[2018-06-03] MEDS: LATANOPROST 0.005% OPHTH SOLN 2.5 ML OU (20:50)
[2018-06-04] MEDS: OLANZapine ORAL DISINTEGRATING TAB 5MG PO ×2 (00:10→22:21)
[2018-06-04] MEDS: QUEtiapine FUMARATE 50 MG TAB PO ×2 (00:10→22:21)
[2018-06-04] MEDS: LEVOTHYROXINE 25MCG TABLET (0.025MG) PO (06:00)
[2018-06-04 06:39] LABS: BEDSIDE GLUCOSE 99 MG/DL (70-105)
[2018-06-04] MEDS: HumaLOG INSULIN (NovoLOG) PER UNIT SC ×5 (06:55→19:48)
[2018-06-04] MEDS: BRIMONIDINE 0.15% OPHTH SOLN 5 ML OS ×2 (08:28→19:47)
[2018-06-04] MEDS: BRINZOLAMIDE 1 % OPHTH SUSP (AZOPT) 10ML OS ×3 (08:28→19:47)
[2018-06-04] MEDS: CLOPIDOGREL 75 MG TAB PO (08:28)
[2018-06-04] MEDS: ADVAIR HFA 115/21MCG INHALER INH ×2 (08:28→19:46)
[2018-06-04] MEDS: BENZTROPINE 1 MG TAB PO ×2 (08:29→19:46)
[2018-06-04] MEDS: ASPIRIN 81 MG ENTERIC TAB PO (08:29)
[2018-06-04] MEDS: risperiDONE 2 MG TAB PO ×3 (08:29→19:46)
[2018-06-04] MEDS: clonazePAM 1 MG TAB PO ×2 (08:29→19:46)
[2018-06-04] MEDS: PANTOPRAZOLE 40MG TAB (PROTONIX) PO (08:29)
[2018-06-04] MEDS: DIVALPROEX 250MG *ER* TAB PO ×2 (08:29→19:46)
[2018-06-04] MEDS: LISINOPRIL 20 MG TAB PO (08:34)
[2018-06-04] MEDS: CEFDINIR 300 MG CAP (OMNICEF) PO ×2 (08:36→19:46)
[2018-06-04] MEDS: LEVEMIR (INSULIN DETEMIR) 1 UNITS/0.01ML SC ×2 (08:39→19:48)
[2018-06-04] MEDS: LITHIUM CARBONATE 150 MG CAP PO ×2 (08:39→19:51)
[2018-06-04] MEDS: ACETAMINOPHEN TAB 650MG DOSE (2X325MG) PO ×2 (10:22→19:45)
[2018-06-04 13:32] LABS: BEDSIDE GLUCOSE 111 MG/DL (70-105)
[2018-06-04 17:00] LABS: BEDSIDE GLUCOSE 125 MG/DL (70-105)
[2018-06-04] MEDS: rOPINIRole 0.25 MG TAB(REQUIP) PO (19:45)
[2018-06-04] MEDS: LATANOPROST 0.005% OPHTH SOLN 2.5 ML OU (19:47)
[2018-06-04 19:52] LABS: BEDSIDE GLUCOSE 197 MG/DL (70-105)
[2018-06-05] MEDS: LEVOTHYROXINE 25MCG TABLET (0.025MG) PO (06:00)
[2018-06-05 06:25] LABS: BEDSIDE GLUCOSE 125 MG/DL (70-105)
[2018-06-05] MEDS: HumaLOG INSULIN (NovoLOG) PER UNIT SC ×4 (06:46→20:48)
[2018-06-05] MEDS: BRIMONIDINE 0.15% OPHTH SOLN 5 ML OS ×2 (09:29→20:38)
[2018-06-05] MEDS: LITHIUM CARBONATE 150 MG CAP PO ×2 (09:30→20:44)
[2018-06-05] MEDS: DIVALPROEX 250MG *ER* TAB PO ×2 (09:30→20:49)
[2018-06-05] MEDS: BRINZOLAMIDE 1 % OPHTH SUSP (AZOPT) 10ML OS ×3 (09:30→20:37)
[2018-06-05] MEDS: CLOPIDOGREL 75 MG TAB PO (09:30)
[2018-06-05] MEDS: ASPIRIN 81 MG ENTERIC TAB PO (09:30)
[2018-06-05] MEDS: CEFDINIR 300 MG CAP (OMNICEF) PO ×2 (09:30→20:44)
[2018-06-05] MEDS: PANTOPRAZOLE 40MG TAB (PROTONIX) PO (09:30)
[2018-06-05] MEDS: clonazePAM 1 MG TAB PO ×2 (09:30→20:44)
[2018-06-05] MEDS: risperiDONE 2 MG TAB PO ×3 (09:30→20:44)
[2018-06-05] MEDS: BENZTROPINE 1 MG TAB PO ×2 (09:31→20:49)
[2018-06-05] MEDS: ADVAIR HFA 115/21MCG INHALER INH ×2 (09:31→20:48)
[2018-06-05] MEDS: LISINOPRIL 20 MG TAB PO (09:31)
[2018-06-05] MEDS: LEVEMIR (INSULIN DETEMIR) 1 UNITS/0.01ML SC ×2 (09:36→20:48)
[2018-06-05] MEDS: ALBUTEROL 90 MCG/ACT 8GM HFA INHALER INH (12:13)
[2018-06-05] MEDS: FUROSEMIDE 20 MG TAB PO (12:14)
[2018-06-05 12:16] LABS: BEDSIDE GLUCOSE 155 MG/DL (70-105)
[2018-06-05 17:07] LABS: BEDSIDE GLUCOSE 149 MG/DL (70-105)
[2018-06-05 20:42] LABS: BEDSIDE GLUCOSE 154 MG/DL (70-105)
[2018-06-05] MEDS: rOPINIRole 0.25 MG TAB(REQUIP) PO (20:43)
[2018-06-05] MEDS: LATANOPROST 0.005% OPHTH SOLN 2.5 ML OU (20:43)
[2018-06-05] MEDS: QUEtiapine FUMARATE 50 MG TAB PO (20:50)
[2018-06-05] MEDS: OLANZapine ORAL DISINTEGRATING TAB 5MG PO (20:50)
[2018-06-06] MEDS: FUROSEMIDE 20 MG TAB PO (05:16)
[2018-06-06] MEDS: LEVOTHYROXINE 25MCG TABLET (0.025MG) PO (05:16)
[2018-06-06 05:23] LABS: BEDSIDE GLUCOSE 135 MG/DL (70-105)
[2018-06-06] MEDS: HumaLOG INSULIN (NovoLOG) PER UNIT SC ×4 (06:32→21:00)
[2018-06-06 07:39] LABS: ANION GAP 8 MEQ/L (8-16); BLOOD UREA NITROGEN 18 MG/DL (7-18); CALCIUM LEVEL 9.2 MG/DL (8.5-10.1); CARBON DIOXIDE LEVEL 29 MEQ/L (21-32); CHLORIDE LEVEL 105 MEQ/L (98-107); CREATININE FOR GFR 0.68 MG/DL (0.55-1.30); GLOMERULAR FILTRATION RATE > 60.0 (>51); GLUCOSE, FASTING 76 MG/DL (70-100); POTASSIUM SERUM 4.1 MEQ/L (3.5-5.1); SODIUM LEVEL 142 MEQ/L (136-145)
[2018-06-06] MEDS: LEVEMIR (INSULIN DETEMIR) 1 UNITS/0.01ML SC ×2 (08:54→21:17)
[2018-06-06] MEDS: ADVAIR HFA 115/21MCG INHALER INH ×2 (08:55→21:00)
[2018-06-06] MEDS: BRIMONIDINE 0.15% OPHTH SOLN 5 ML OS ×2 (08:56→21:00)
[2018-06-06] MEDS: BRINZOLAMIDE 1 % OPHTH SUSP (AZOPT) 10ML OS ×3 (08:56→21:00)
[2018-06-06] MEDS: LISINOPRIL 20 MG TAB PO (08:57)
[2018-06-06] MEDS: clonazePAM 1 MG TAB PO ×2 (08:57→21:13)
[2018-06-06] MEDS: ASPIRIN 81 MG ENTERIC TAB PO (08:57)
[2018-06-06] MEDS: LITHIUM CARBONATE 150 MG CAP PO ×2 (08:57→21:14)
[2018-06-06] MEDS: CEFDINIR 300 MG CAP (OMNICEF) PO (08:57)
[2018-06-06] MEDS: BENZTROPINE 1 MG TAB PO ×2 (08:58→21:14)
[2018-06-06] MEDS: PANTOPRAZOLE 40MG TAB (PROTONIX) PO (08:58)
[2018-06-06] MEDS: CLOPIDOGREL 75 MG TAB PO (08:58)
[2018-06-06] MEDS: risperiDONE 2 MG TAB PO ×3 (08:59→21:14)
[2018-06-06] MEDS: DIVALPROEX 250MG *ER* TAB PO ×2 (08:59→21:16)
[2018-06-06] MEDS: OLANZapine ORAL DISINTEGRATING TAB 5MG PO ×2 (09:02→22:25)
[2018-06-06] MEDS: ALBUTEROL 90 MCG/ACT 8GM HFA INHALER INH (09:41)
[2018-06-06 11:52] LABS: BEDSIDE GLUCOSE 201 MG/DL (70-105)
[2018-06-06 16:54] LABS: BEDSIDE GLUCOSE 120 MG/DL (70-105)
[2018-06-06] MEDS: LATANOPROST 0.005% OPHTH SOLN 2.5 ML OU (21:00)
[2018-06-06] MEDS: QUEtiapine FUMARATE 50 MG TAB PO (21:14)
[2018-06-06] MEDS: rOPINIRole 0.25 MG TAB(REQUIP) PO (21:14)
[2018-06-07] MEDS: LEVOTHYROXINE 25MCG TABLET (0.025MG) PO (06:14)
[2018-06-07 06:34] LABS: BEDSIDE GLUCOSE 86 MG/DL (70-105)
[2018-06-07] MEDS: HumaLOG INSULIN (NovoLOG) PER UNIT SC ×4 (06:36→21:00)
[2018-06-07] MEDS: LEVEMIR (INSULIN DETEMIR) 1 UNITS/0.01ML SC ×2 (08:20→22:05)
[2018-06-07] MEDS: ADVAIR HFA 115/21MCG INHALER INH ×2 (08:21→21:00)
[2018-06-07] MEDS: BENZTROPINE 1 MG TAB PO ×2 (08:22→19:34)
[2018-06-07] MEDS: clonazePAM 1 MG TAB PO ×2 (08:22→19:34)
[2018-06-07] MEDS: LITHIUM CARBONATE 150 MG CAP PO (08:22)
[2018-06-07] MEDS: DIVALPROEX 250MG *ER* TAB PO ×2 (08:22→21:39)
[2018-06-07] MEDS: ASPIRIN 81 MG ENTERIC TAB PO (08:22)
[2018-06-07] MEDS: risperiDONE 2 MG TAB PO ×3 (08:22→21:39)
[2018-06-07] MEDS: PANTOPRAZOLE 40MG TAB (PROTONIX) PO (08:23)
[2018-06-07] MEDS: FUROSEMIDE 20 MG TAB PO (08:23)
[2018-06-07] MEDS: BRINZOLAMIDE 1 % OPHTH SUSP (AZOPT) 10ML OS ×3 (08:23→21:37)
[2018-06-07] MEDS: CLOPIDOGREL 75 MG TAB PO (08:23)
[2018-06-07] MEDS: BRIMONIDINE 0.15% OPHTH SOLN 5 ML OS ×2 (08:23→21:37)
[2018-06-07] MEDS: LISINOPRIL 20 MG TAB PO (08:24)
[2018-06-07] MEDS: ACETAMINOPHEN TAB 650MG DOSE (2X325MG) PO (11:20)
[2018-06-07 11:25] LABS: BEDSIDE GLUCOSE 115 MG/DL (70-105)
[2018-06-07 17:05] LABS: BEDSIDE GLUCOSE 124 MG/DL (70-105)
[2018-06-07] MEDS: rOPINIRole 0.25 MG TAB(REQUIP) PO (19:34)
[2018-06-07] MEDS: OLANZapine ORAL DISINTEGRATING TAB 5MG PO (19:36)
[2018-06-07] MEDS: QUEtiapine FUMARATE 50 MG TAB PO (21:06)
[2018-06-07] MEDS: LATANOPROST 0.005% OPHTH SOLN 2.5 ML OU (21:37)
[2018-06-07 22:05] LABS: BEDSIDE GLUCOSE 124 MG/DL (70-105)
[2018-06-08] MEDS: QUEtiapine FUMARATE 50 MG TAB PO ×2 (00:36→19:56)
[2018-06-08] MEDS: LEVOTHYROXINE 25MCG TABLET (0.025MG) PO (06:11)
[2018-06-08] MEDS: HumaLOG INSULIN (NovoLOG) PER UNIT SC ×4 (06:22→19:59)
[2018-06-08 06:35] LABS: BEDSIDE GLUCOSE 113 MG/DL (70-105)
[2018-06-08] MEDS: ADVAIR HFA 115/21MCG INHALER INH ×2 (09:22→20:00)
[2018-06-08] MEDS: BRINZOLAMIDE 1 % OPHTH SUSP (AZOPT) 10ML OS ×3 (09:22→19:54)
[2018-06-08] MEDS: LEVEMIR (INSULIN DETEMIR) 1 UNITS/0.01ML SC ×2 (09:22→20:01)
[2018-06-08] MEDS: BRIMONIDINE 0.15% OPHTH SOLN 5 ML OS ×2 (09:23→19:54)
[2018-06-08] MEDS: BENZTROPINE 1 MG TAB PO ×2 (09:24→19:54)
[2018-06-08] MEDS: CLOPIDOGREL 75 MG TAB PO (09:24)
[2018-06-08] MEDS: PANTOPRAZOLE 40MG TAB (PROTONIX) PO (09:25)
[2018-06-08] MEDS: LITHIUM CARBONATE 150 MG CAP PO (09:26)
[2018-06-08] MEDS: ASPIRIN 81 MG ENTERIC TAB PO (09:26)
[2018-06-08] MEDS: DIVALPROEX 250MG *ER* TAB PO ×2 (09:26→19:54)
[2018-06-08] MEDS: LISINOPRIL 20 MG TAB PO (09:27)
[2018-06-08] MEDS: risperiDONE 2 MG TAB PO ×3 (09:27→19:54)
[2018-06-08] MEDS: clonazePAM 1 MG TAB PO (09:27)
[2018-06-08 09:38] LABS: HEMATOCRIT 36.6 % (36.0-47.0); HEMOGLOBIN 12.1 g/dl (12.0-15.5); MEAN CORPUSCULAR HEMOGLOBIN 30.3 pg (27.0-33.0); MEAN CORPUSCULAR HGB CONC 33.1 g/dl (32.0-36.5); MEAN CORPUSCULAR VOLUME 91.5 fl (80.0-96.0); PLATELET COUNT, AUTOMATED 258 10^3/uL (150-450); RED CELL DISTRIBUTION WIDTH 12.5 % (11.5-14.5); WHITE BLOOD COUNT 10.8 10^3/uL (4.0-10.0)
[2018-06-08 10:08] LABS: ANION GAP 7 MEQ/L (8-16); BLOOD UREA NITROGEN 20 MG/DL (7-18); CALCIUM LEVEL 8.7 MG/DL (8.5-10.1); CARBON DIOXIDE LEVEL 27 MEQ/L (21-32); CHLORIDE LEVEL 103 MEQ/L (98-107); CREATININE FOR GFR 0.62 MG/DL (0.55-1.30); GLOMERULAR FILTRATION RATE > 60.0 (>51); GLUCOSE, FASTING 125 MG/DL (70-100); SODIUM LEVEL 137 MEQ/L (136-145)
[2018-06-08] MEDS: FUROSEMIDE 20 MG TAB PO ×2 (11:29→17:13)
[2018-06-08 11:51] LABS: BEDSIDE GLUCOSE 160 MG/DL (70-105)
[2018-06-08 14:14] LABS: KETONE, URINE AUTO RFX NEGATIVE (NEGATIVE); MUCUS, URINE RFX SMALL (NEGATIVE); NITRITE, URINE AUTO RFX NEGATIVE (NEGATIVE); RBC, URINE AUTO RFX 2 /HPF (0-3); SPECIFIC GRAVITY UR AUTO RFX 1.006 (1.002-1.035); SQUAM EPITHELIAL CELL UR AURFX 0 /HPF (0-6); WBC, URINE AUTO RFX 2 /HPF (0-3)
[2018-06-08 14:15] LABS: LEUKOCYTE ESTERASE UR AUTO RFX 1+ (NEGATIVE)
[2018-06-08 16:43] LABS: BEDSIDE GLUCOSE 151 MG/DL (70-105)
[2018-06-08] MEDS: ACETAMINOPHEN TAB 650MG DOSE (2X325MG) PO ×2 (17:14→19:59)
[2018-06-08] MEDS: rOPINIRole 0.25 MG TAB(REQUIP) PO (19:53)
[2018-06-08] MEDS: clonazePAM 0.5 MG TAB PO (19:54)
[2018-06-08] MEDS: LATANOPROST 0.005% OPHTH SOLN 2.5 ML OU (19:54)
[2018-06-08] MEDS: OLANZapine ORAL DISINTEGRATING TAB 5MG PO (19:56)
[2018-06-08 20:04] LABS: BEDSIDE GLUCOSE 80 MG/DL (70-105)
[2018-06-09 06:30] LABS: BEDSIDE GLUCOSE 105 MG/DL (70-105)
[2018-06-09] MEDS: LEVOTHYROXINE 25MCG TABLET (0.025MG) PO (06:45)
[2018-06-09] MEDS: HumaLOG INSULIN (NovoLOG) PER UNIT SC ×4 (06:56→21:00)
[2018-06-09 07:13] LABS: HEMATOCRIT 39.2 % (36.0-47.0); HEMOGLOBIN 12.8 g/dl (12.0-15.5); MEAN CORPUSCULAR HEMOGLOBIN 29.7 pg (27.0-33.0); MEAN CORPUSCULAR HGB CONC 32.7 g/dl (32.0-36.5); PLATELET COUNT, AUTOMATED 260 10^3/uL (150-450); RED BLOOD COUNT 4.31 10^6/uL (4.00-5.40); RED CELL DISTRIBUTION WIDTH 12.4 % (11.5-14.5); WHITE BLOOD COUNT 9.6 10^3/uL (4.0-10.0)
[2018-06-09 07:32] LABS: ANION GAP 8 MEQ/L (8-16); BLOOD UREA NITROGEN 17 MG/DL (7-18); CALCIUM LEVEL 8.7 MG/DL (8.5-10.1); CARBON DIOXIDE LEVEL 30 MEQ/L (21-32); CHLORIDE LEVEL 99 MEQ/L (98-107); GLOMERULAR FILTRATION RATE > 60.0 (>51); GLUCOSE, FASTING 101 MG/DL (70-100); POTASSIUM SERUM 4.3 MEQ/L (3.5-5.1); SODIUM LEVEL 137 MEQ/L (136-145)
[2018-06-09] MEDS: ADVAIR HFA 115/21MCG INHALER INH ×2 (08:23→20:28)
[2018-06-09] MEDS: CLOPIDOGREL 75 MG TAB PO (08:23)
[2018-06-09] MEDS: BRIMONIDINE 0.15% OPHTH SOLN 5 ML OS ×2 (08:23→20:27)
[2018-06-09] MEDS: ASPIRIN 81 MG ENTERIC TAB PO (08:23)
[2018-06-09] MEDS: risperiDONE 0.5 MG TAB PO ×2 (08:23→15:09)
[2018-06-09] MEDS: DIVALPROEX 250MG *ER* TAB PO ×2 (08:23→20:25)
[2018-06-09] MEDS: PANTOPRAZOLE 40MG TAB (PROTONIX) PO (08:23)
[2018-06-09] MEDS: BRINZOLAMIDE 1 % OPHTH SUSP (AZOPT) 10ML OS ×3 (08:23→20:26)
[2018-06-09] MEDS: clonazePAM 0.5 MG TAB PO ×2 (08:23→20:25)
[2018-06-09] MEDS: BENZTROPINE 1 MG TAB PO ×2 (08:24→20:25)
[2018-06-09] MEDS: risperiDONE 1 MG TAB PO ×2 (08:24→15:09)
[2018-06-09] MEDS: LISINOPRIL 20 MG TAB PO (08:24)
[2018-06-09] MEDS: LEVEMIR (INSULIN DETEMIR) 1 UNITS/0.01ML SC ×2 (08:30→20:29)
[2018-06-09] MEDS: ALBUTEROL 90 MCG/ACT 8GM HFA INHALER INH ×2 (11:46→22:27)
[2018-06-09 11:53] LABS: BEDSIDE GLUCOSE 117 MG/DL (70-105)
[2018-06-09] MEDS: ACETAMINOPHEN TAB 650MG DOSE (2X325MG) PO (13:47)
[2018-06-09 17:25] LABS: BEDSIDE GLUCOSE 164 MG/DL (70-105)
[2018-06-09 20:16] LABS: BEDSIDE GLUCOSE 187 MG/DL (70-105)
[2018-06-09] MEDS: risperiDONE 2 MG TAB PO (20:25)
[2018-06-09] MEDS: rOPINIRole 0.25 MG TAB(REQUIP) PO (20:26)
[2018-06-09] MEDS: LATANOPROST 0.005% OPHTH SOLN 2.5 ML OU (20:27)
[2018-06-09] MEDS: OLANZapine ORAL DISINTEGRATING TAB 5MG PO (21:40)
[2018-06-09] MEDS: QUEtiapine FUMARATE 50 MG TAB PO (21:40)
[2018-06-10] MEDS: LEVOTHYROXINE 25MCG TABLET (0.025MG) PO (05:46)
[2018-06-10 05:53] LABS: BEDSIDE GLUCOSE 102 MG/DL (70-105)
[2018-06-10] MEDS: HumaLOG INSULIN (NovoLOG) PER UNIT SC ×4 (06:49→21:00)
[2018-06-10 07:43] LABS: ANION GAP 6 MEQ/L (8-16); BLOOD UREA NITROGEN 13 MG/DL (7-18); CALCIUM LEVEL 8.6 MG/DL (8.5-10.1); CARBON DIOXIDE LEVEL 28 MEQ/L (21-32); CHLORIDE LEVEL 99 MEQ/L (98-107); CREATININE FOR GFR 0.56 MG/DL (0.55-1.30); GLOMERULAR FILTRATION RATE > 60.0 (>51); GLUCOSE, FASTING 110 MG/DL (70-100); POTASSIUM SERUM 4.1 MEQ/L (3.5-5.1); SODIUM LEVEL 133 MEQ/L (136-145)
[2018-06-10] MEDS: LEVEMIR (INSULIN DETEMIR) 1 UNITS/0.01ML SC ×2 (08:39→21:15)
[2018-06-10] MEDS: risperiDONE 1 MG TAB PO ×2 (08:40→15:42)
[2018-06-10] MEDS: ASPIRIN 81 MG ENTERIC TAB PO (08:40)
[2018-06-10] MEDS: PANTOPRAZOLE 40MG TAB (PROTONIX) PO (08:40)
[2018-06-10] MEDS: CLOPIDOGREL 75 MG TAB PO (08:40)
[2018-06-10] MEDS: BENZTROPINE 1 MG TAB PO ×2 (08:40→21:13)
[2018-06-10] MEDS: FUROSEMIDE 20 MG TAB PO ×2 (08:40→15:44)
[2018-06-10] MEDS: clonazePAM 0.5 MG TAB PO ×2 (08:40→21:13)
[2018-06-10] MEDS: DIVALPROEX 250MG *ER* TAB PO ×2 (08:40→21:14)
[2018-06-10] MEDS: ADVAIR HFA 115/21MCG INHALER INH ×2 (08:41→21:09)
[2018-06-10] MEDS: BRIMONIDINE 0.15% OPHTH SOLN 5 ML OS ×2 (08:41→21:09)
[2018-06-10] MEDS: BRINZOLAMIDE 1 % OPHTH SUSP (AZOPT) 10ML OS ×3 (08:41→21:09)
[2018-06-10] MEDS: risperiDONE 0.5 MG TAB PO ×2 (08:41→15:42)
[2018-06-10] MEDS: LISINOPRIL 20 MG TAB PO (08:41)
[2018-06-10] MEDS: ACETAMINOPHEN TAB 650MG DOSE (2X325MG) PO (11:00)
[2018-06-10 11:15] LABS: BEDSIDE GLUCOSE 178 MG/DL (70-105)
[2018-06-10] MEDS: NYSTATIN 100,000 UNITS/GM TOPICAL PWD 15 GM TOP (12:50)
[2018-06-10 17:06] LABS: BEDSIDE GLUCOSE 213 MG/DL (70-105)
[2018-06-10] MEDS: LATANOPROST 0.005% OPHTH SOLN 2.5 ML OU (21:09)
[2018-06-10] MEDS: risperiDONE 2 MG TAB PO (21:13)
[2018-06-10] MEDS: QUEtiapine FUMARATE 50 MG TAB PO (21:13)
[2018-06-10] MEDS: OLANZapine ORAL DISINTEGRATING TAB 5MG PO (21:13)
[2018-06-10] MEDS: rOPINIRole 0.25 MG TAB(REQUIP) PO (21:14)
[2018-06-10 21:53] LABS: BEDSIDE GLUCOSE 160 MG/DL (70-105)
[2018-06-11] MEDS: QUEtiapine FUMARATE 50 MG TAB PO ×3 (01:18→22:54)
[2018-06-11] MEDS: LEVOTHYROXINE 25MCG TABLET (0.025MG) PO (06:25)
[2018-06-11 06:43] LABS: BEDSIDE GLUCOSE 150 MG/DL (70-105)
[2018-06-11] MEDS: HumaLOG INSULIN (NovoLOG) PER UNIT SC ×4 (06:43→21:00)
[2018-06-11 07:01] LABS: ANION GAP 9 MEQ/L (8-16); BLOOD UREA NITROGEN 14 MG/DL (7-18); CALCIUM LEVEL 8.7 MG/DL (8.5-10.1); CARBON DIOXIDE LEVEL 29 MEQ/L (21-32); CHLORIDE LEVEL 102 MEQ/L (98-107); CREATININE FOR GFR 0.58 MG/DL (0.55-1.30); GLOMERULAR FILTRATION RATE > 60.0 (>51); GLUCOSE, FASTING 117 MG/DL (70-100); POTASSIUM SERUM 4.2 MEQ/L (3.5-5.1); SODIUM LEVEL 140 MEQ/L (136-145)
[2018-06-11] MEDS: ACETAMINOPHEN TAB 650MG DOSE (2X325MG) PO (07:49)
[2018-06-11] MEDS: ADVAIR HFA 115/21MCG INHALER INH ×2 (08:43→21:55)
[2018-06-11] MEDS: PANTOPRAZOLE 40MG TAB (PROTONIX) PO (08:44)
[2018-06-11] MEDS: LISINOPRIL 20 MG TAB PO (08:46)
[2018-06-11] MEDS: BRIMONIDINE 0.15% OPHTH SOLN 5 ML OS ×2 (08:46→21:55)
[2018-06-11] MEDS: DIVALPROEX 250MG *ER* TAB PO ×2 (08:46→21:00)
[2018-06-11] MEDS: BRINZOLAMIDE 1 % OPHTH SUSP (AZOPT) 10ML OS ×3 (08:46→21:55)
[2018-06-11] MEDS: FUROSEMIDE 20 MG TAB PO (08:47)
[2018-06-11] MEDS: CLOPIDOGREL 75 MG TAB PO (08:47)
[2018-06-11] MEDS: ASPIRIN 81 MG ENTERIC TAB PO (08:47)
[2018-06-11] MEDS: risperiDONE 1 MG TAB PO ×2 (08:47→15:24)
[2018-06-11] MEDS: clonazePAM 0.5 MG TAB PO ×2 (08:47→21:00)
[2018-06-11] MEDS: risperiDONE 0.5 MG TAB PO ×2 (08:47→15:24)
[2018-06-11] MEDS: BENZTROPINE 1 MG TAB PO ×2 (08:47→21:00)
[2018-06-11] MEDS: LEVEMIR (INSULIN DETEMIR) 1 UNITS/0.01ML SC ×2 (08:52→22:05)
[2018-06-11 12:14] LABS: BEDSIDE GLUCOSE 126 MG/DL (70-105)
[2018-06-11 17:24] LABS: BEDSIDE GLUCOSE 123 MG/DL (70-105)
[2018-06-11] MEDS: ALBUTEROL 90 MCG/ACT 8GM HFA INHALER INH (17:35)
[2018-06-11] MEDS: OLANZapine ORAL DISINTEGRATING TAB 5MG PO (18:54)
[2018-06-11] MEDS: risperiDONE 2 MG TAB PO (21:00)
[2018-06-11] MEDS: rOPINIRole 0.25 MG TAB(REQUIP) PO (21:00)
[2018-06-11] MEDS: LATANOPROST 0.005% OPHTH SOLN 2.5 ML OU (21:55)
[2018-06-11 21:56] LABS: BEDSIDE GLUCOSE 145 MG/DL (70-105)
[2018-06-12] MEDS: LEVOTHYROXINE 25MCG TABLET (0.025MG) PO (06:08)
[2018-06-12] MEDS: HumaLOG INSULIN (NovoLOG) PER UNIT SC ×4 (06:12→20:41)
[2018-06-12 06:20] LABS: BEDSIDE GLUCOSE 114 MG/DL (70-105)
[2018-06-12] MEDS: ADVAIR HFA 115/21MCG INHALER INH ×3 (09:06→22:11)
[2018-06-12] MEDS: risperiDONE 1 MG TAB PO ×2 (09:06→15:17)
[2018-06-12] MEDS: CLOPIDOGREL 75 MG TAB PO (09:06)
[2018-06-12] MEDS: clonazePAM 0.5 MG TAB PO ×2 (09:06→20:41)
[2018-06-12] MEDS: PANTOPRAZOLE 40MG TAB (PROTONIX) PO (09:06)
[2018-06-12] MEDS: LISINOPRIL 20 MG TAB PO (09:09)
[2018-06-12] MEDS: FUROSEMIDE 20 MG TAB PO (09:09)
[2018-06-12] MEDS: DIVALPROEX 250MG *ER* TAB PO ×2 (09:10→20:41)
[2018-06-12] MEDS: risperiDONE 0.5 MG TAB PO ×2 (09:10→15:17)
[2018-06-12] MEDS: BENZTROPINE 1 MG TAB PO ×2 (09:10→20:41)
[2018-06-12] MEDS: ASPIRIN 81 MG ENTERIC TAB PO (09:10)
[2018-06-12] MEDS: LEVEMIR (INSULIN DETEMIR) 1 UNITS/0.01ML SC ×2 (09:12→20:42)
[2018-06-12] MEDS: BRINZOLAMIDE 1 % OPHTH SUSP (AZOPT) 10ML OS ×3 (09:12→22:07)
[2018-06-12] MEDS: BRIMONIDINE 0.15% OPHTH SOLN 5 ML OS ×2 (09:12→22:07)
[2018-06-12 11:59] LABS: BEDSIDE GLUCOSE 133 MG/DL (70-105)
[2018-06-12 17:08] LABS: BEDSIDE GLUCOSE 160 MG/DL (70-105)
[2018-06-12 20:36] LABS: BEDSIDE GLUCOSE 136 MG/DL (70-105)
[2018-06-12] MEDS: risperiDONE 2 MG TAB PO (20:41)
[2018-06-12] MEDS: rOPINIRole 0.25 MG TAB(REQUIP) PO (20:41)
[2018-06-12] MEDS: ACETAMINOPHEN TAB 650MG DOSE (2X325MG) PO (20:44)
[2018-06-12] MEDS: LATANOPROST 0.005% OPHTH SOLN 2.5 ML OU (22:07)
[2018-06-12] MEDS: ALBUTEROL 90 MCG/ACT 8GM HFA INHALER INH (22:09)
[2018-06-12] MEDS: LORazepam 1 MG TAB PO (23:53)
[2018-06-12] MEDS: HALOPERIDOL 5 MG TAB PO (23:53)
[2018-06-13] MEDS: LEVOTHYROXINE 25MCG TABLET (0.025MG) PO (06:09)
[2018-06-13 06:22] LABS: BEDSIDE GLUCOSE 91 MG/DL (70-105)
[2018-06-13] MEDS: HumaLOG INSULIN (NovoLOG) PER UNIT SC ×4 (06:35→21:00)
[2018-06-13 07:03] LABS: ANION GAP 8 MEQ/L (8-16); BLOOD UREA NITROGEN 14 MG/DL (7-18); CALCIUM LEVEL 8.4 MG/DL (8.5-10.1); CARBON DIOXIDE LEVEL 29 MEQ/L (21-32); CHLORIDE LEVEL 102 MEQ/L (98-107); CREATININE FOR GFR 0.55 MG/DL (0.55-1.30); GLOMERULAR FILTRATION RATE > 60.0 (>51); GLUCOSE, FASTING 74 MG/DL (70-100); POTASSIUM SERUM 4.1 MEQ/L (3.5-5.1); SODIUM LEVEL 139 MEQ/L (136-145)
[2018-06-13] MEDS: BRINZOLAMIDE 1 % OPHTH SUSP (AZOPT) 10ML OS ×3 (08:47→22:13)
[2018-06-13] MEDS: ADVAIR HFA 115/21MCG INHALER INH ×2 (08:48→22:22)
[2018-06-13] MEDS: CLOPIDOGREL 75 MG TAB PO (08:48)
[2018-06-13] MEDS: risperiDONE 1 MG TAB PO ×2 (08:48→16:14)
[2018-06-13] MEDS: BENZTROPINE 1 MG TAB PO ×2 (08:48→20:56)
[2018-06-13] MEDS: DIVALPROEX 250MG *ER* TAB PO ×2 (08:48→20:57)
[2018-06-13] MEDS: ASPIRIN 81 MG ENTERIC TAB PO (08:48)
[2018-06-13] MEDS: BRIMONIDINE 0.15% OPHTH SOLN 5 ML OS ×2 (08:48→22:13)
[2018-06-13] MEDS: clonazePAM 0.5 MG TAB PO ×2 (08:48→20:56)
[2018-06-13] MEDS: PANTOPRAZOLE 40MG TAB (PROTONIX) PO (08:48)
[2018-06-13] MEDS: LISINOPRIL 20 MG TAB PO (08:50)
[2018-06-13] MEDS: FUROSEMIDE 20 MG TAB PO ×2 (08:54→23:27)
[2018-06-13] MEDS: LEVEMIR (INSULIN DETEMIR) 1 UNITS/0.01ML SC ×2 (08:57→20:56)
[2018-06-13] MEDS: risperiDONE 0.5 MG TAB PO ×2 (08:57→16:14)
[2018-06-13 12:08] LABS: BEDSIDE GLUCOSE 179 MG/DL (70-105)
[2018-06-13 17:25] LABS: BEDSIDE GLUCOSE 107 MG/DL (70-105)
[2018-06-13 20:46] LABS: BEDSIDE GLUCOSE 140 MG/DL (70-105)
[2018-06-13] MEDS: risperiDONE 2 MG TAB PO (20:56)
[2018-06-13] MEDS: rOPINIRole 0.25 MG TAB(REQUIP) PO (20:56)
[2018-06-13] MEDS: LATANOPROST 0.005% OPHTH SOLN 2.5 ML OU (22:13)
[2018-06-13] MEDS: OLANZapine ORAL DISINTEGRATING TAB 5MG PO (23:19)
[2018-06-13] MEDS: QUEtiapine FUMARATE 50 MG TAB PO (23:19)
[2018-06-14 04:49] LABS: BEDSIDE GLUCOSE 93 MG/DL (70-105)
[2018-06-14] MEDS: ACETAMINOPHEN TAB 650MG DOSE (2X325MG) PO ×2 (04:53→08:50)
[2018-06-14] MEDS: LEVOTHYROXINE 25MCG TABLET (0.025MG) PO (06:28)
[2018-06-14] MEDS: HumaLOG INSULIN (NovoLOG) PER UNIT SC ×4 (06:52→21:00)
[2018-06-14] MEDS: BRINZOLAMIDE 1 % OPHTH SUSP (AZOPT) 10ML OS ×3 (08:42→21:01)
[2018-06-14] MEDS: BRIMONIDINE 0.15% OPHTH SOLN 5 ML OS ×2 (08:42→21:04)
[2018-06-14] MEDS: BENZTROPINE 1 MG TAB PO ×2 (08:45→21:03)
[2018-06-14] MEDS: risperiDONE 1 MG TAB PO ×2 (08:45→16:00)
[2018-06-14] MEDS: CLOPIDOGREL 75 MG TAB PO (08:45)
[2018-06-14] MEDS: risperiDONE 0.5 MG TAB PO ×2 (08:45→16:00)
[2018-06-14] MEDS: ASPIRIN 81 MG ENTERIC TAB PO (08:45)
[2018-06-14] MEDS: LISINOPRIL 20 MG TAB PO (08:45)
[2018-06-14] MEDS: clonazePAM 0.5 MG TAB PO ×2 (08:46→21:02)
[2018-06-14] MEDS: DIVALPROEX 250MG *ER* TAB PO ×2 (08:46→21:03)
[2018-06-14] MEDS: LEVEMIR (INSULIN DETEMIR) 1 UNITS/0.01ML SC ×2 (08:47→21:19)
[2018-06-14] MEDS: ADVAIR HFA 115/21MCG INHALER INH ×2 (08:47→21:05)
[2018-06-14] MEDS: PANTOPRAZOLE 40MG TAB (PROTONIX) PO (08:52)
[2018-06-14] MEDS: FUROSEMIDE 20 MG TAB PO (09:51)
[2018-06-14 11:59] LABS: BEDSIDE GLUCOSE 153 MG/DL (70-105)
[2018-06-14 16:40] LABS: BEDSIDE GLUCOSE 114 MG/DL (70-105)
[2018-06-14] MEDS: ALBUTEROL 90 MCG/ACT 8GM HFA INHALER INH (18:33)
[2018-06-14] MEDS: rOPINIRole 0.25 MG TAB(REQUIP) PO (21:01)
[2018-06-14] MEDS: risperiDONE 2 MG TAB PO (21:03)
[2018-06-14] MEDS: QUEtiapine FUMARATE 50 MG TAB PO (21:03)
[2018-06-14] MEDS: LATANOPROST 0.005% OPHTH SOLN 2.5 ML OU (21:05)
[2018-06-14 21:17] LABS: BEDSIDE GLUCOSE 184 MG/DL (70-105)
[2018-06-15] MEDS: LEVOTHYROXINE 25MCG TABLET (0.025MG) PO (06:37)
[2018-06-15 06:38] LABS: BEDSIDE GLUCOSE 142 MG/DL (70-105)
[2018-06-15] MEDS: HumaLOG INSULIN (NovoLOG) PER UNIT SC ×4 (06:38→21:00)
[2018-06-15 07:48] LABS: ANION GAP 7 MEQ/L (8-16); BLOOD UREA NITROGEN 13 MG/DL (7-18); CALCIUM LEVEL 8.3 MG/DL (8.5-10.1); CARBON DIOXIDE LEVEL 29 MEQ/L (21-32); CHLORIDE LEVEL 105 MEQ/L (98-107); CREATININE FOR GFR 0.61 MG/DL (0.55-1.30); GLOMERULAR FILTRATION RATE > 60.0 (>51); GLUCOSE, FASTING 141 MG/DL (70-100); POTASSIUM SERUM 4.1 MEQ/L (3.5-5.1); SODIUM LEVEL 141 MEQ/L (136-145)
[2018-06-15] MEDS: DIVALPROEX 250MG *ER* TAB PO ×2 (10:07→21:33)
[2018-06-15] MEDS: CLOPIDOGREL 75 MG TAB PO (10:07)
[2018-06-15] MEDS: BENZTROPINE 1 MG TAB PO ×2 (10:07→21:33)
[2018-06-15] MEDS: ASPIRIN 81 MG ENTERIC TAB PO (10:08)
[2018-06-15] MEDS: BRINZOLAMIDE 1 % OPHTH SUSP (AZOPT) 10ML OS ×3 (10:08→21:26)
[2018-06-15] MEDS: ADVAIR HFA 115/21MCG INHALER INH ×2 (10:08→21:36)
[2018-06-15] MEDS: BRIMONIDINE 0.15% OPHTH SOLN 5 ML OS ×2 (10:08→21:24)
[2018-06-15] MEDS: risperiDONE 0.5 MG TAB PO ×2 (10:09→15:30)
[2018-06-15] MEDS: LISINOPRIL 20 MG TAB PO (10:10)
[2018-06-15] MEDS: PANTOPRAZOLE 40MG TAB (PROTONIX) PO (10:11)
[2018-06-15] MEDS: LEVEMIR (INSULIN DETEMIR) 1 UNITS/0.01ML SC ×2 (10:11→21:26)
[2018-06-15] MEDS: clonazePAM 0.5 MG TAB PO ×2 (10:11→21:32)
[2018-06-15] MEDS: risperiDONE 1 MG TAB PO ×2 (10:11→16:00)
[2018-06-15] MEDS: FUROSEMIDE 20 MG TAB PO (10:14)
[2018-06-15 12:00] LABS: BEDSIDE GLUCOSE 143 MG/DL (70-105)
[2018-06-15 17:28] LABS: BEDSIDE GLUCOSE 134 MG/DL (70-105)
[2018-06-15 21:25] LABS: BEDSIDE GLUCOSE 145 MG/DL (70-105)
[2018-06-15] MEDS: LATANOPROST 0.005% OPHTH SOLN 2.5 ML OU (21:26)
[2018-06-15] MEDS: OLANZapine ORAL DISINTEGRATING TAB 5MG PO (21:29)
[2018-06-15] MEDS: QUEtiapine FUMARATE 50 MG TAB PO (21:29)
[2018-06-15] MEDS: risperiDONE 2 MG TAB PO (21:33)
[2018-06-15] MEDS: rOPINIRole 0.25 MG TAB(REQUIP) PO (21:33)
[2018-06-16] MEDS: LEVOTHYROXINE 25MCG TABLET (0.025MG) PO (06:29)
[2018-06-16 06:38] LABS: BEDSIDE GLUCOSE 96 MG/DL (70-105)
[2018-06-16] MEDS: HumaLOG INSULIN (NovoLOG) PER UNIT SC ×4 (06:40→21:00)
[2018-06-16] MEDS: LISINOPRIL 20 MG TAB PO (08:59)
[2018-06-16] MEDS: DIVALPROEX 250MG *ER* TAB PO ×2 (08:59→22:10)
[2018-06-16] MEDS: FUROSEMIDE 20 MG TAB PO (08:59)
[2018-06-16] MEDS: PANTOPRAZOLE 40MG TAB (PROTONIX) PO (08:59)
[2018-06-16] MEDS: BENZTROPINE 1 MG TAB PO ×2 (09:00→22:10)
[2018-06-16] MEDS: CLOPIDOGREL 75 MG TAB PO (09:00)
[2018-06-16] MEDS: risperiDONE 1 MG TAB PO (09:00)
[2018-06-16] MEDS: ASPIRIN 81 MG ENTERIC TAB PO (09:00)
[2018-06-16] MEDS: clonazePAM 0.5 MG TAB PO ×2 (09:00→22:09)
[2018-06-16] MEDS: LEVEMIR (INSULIN DETEMIR) 1 UNITS/0.01ML SC ×2 (09:02→22:09)
[2018-06-16] MEDS: BRIMONIDINE 0.15% OPHTH SOLN 5 ML OS ×2 (09:04→21:00)
[2018-06-16] MEDS: BRINZOLAMIDE 1 % OPHTH SUSP (AZOPT) 10ML OS ×3 (09:04→21:00)
[2018-06-16] MEDS: ADVAIR HFA 115/21MCG INHALER INH ×2 (09:05→21:00)
[2018-06-16] MEDS: risperiDONE 0.5 MG TAB PO (09:11)
[2018-06-16 11:25] LABS: VALPROIC ACID (DEPAKOTE) 77.9 UG/ML (50.0-100.0)
[2018-06-16 11:35] LABS: CHOLESTEROL LEVEL 121 MG/DL (<200); CHOLESTEROL RISK RATIO 3.102 (<5); HDL CHOLESTEROL 39 MG/DL (>40); LDL CHOLESTEROL 29 MG/DL (<100); NON-HDL-C 82 MG/DL; T UPTAKE 37 % (30-39); THYROXINE (T4) 5.4 UG/DL (4.5-12.0); TRIGLYCERIDES LEVEL 266 MG/DL (<150)
[2018-06-16] MEDS: risperiDONE 2 MG TAB PO ×3 (11:38→22:10)
[2018-06-16 12:11] LABS: BEDSIDE GLUCOSE 133 MG/DL (70-105)
[2018-06-16 16:36] LABS: BEDSIDE GLUCOSE 175 MG/DL (70-105)
[2018-06-16] MEDS: ALBUTEROL 90 MCG/ACT 8GM HFA INHALER INH (18:35)
[2018-06-16] MEDS: LATANOPROST 0.005% OPHTH SOLN 2.5 ML OU (21:00)
[2018-06-16] MEDS: OLANZapine ORAL DISINTEGRATING TAB 5MG PO (22:09)
[2018-06-16] MEDS: QUEtiapine FUMARATE 50 MG TAB PO (22:10)
[2018-06-16] MEDS: rOPINIRole 0.25 MG TAB(REQUIP) PO (22:10)
[2018-06-17] MEDS: LEVOTHYROXINE 25MCG TABLET (0.025MG) PO (06:24)
[2018-06-17] MEDS: HumaLOG INSULIN (NovoLOG) PER UNIT SC ×4 (06:42→20:02)
[2018-06-17 06:44] LABS: BEDSIDE GLUCOSE 128 MG/DL (70-105)
[2018-06-17] MEDS: DIVALPROEX 250MG *ER* TAB PO ×2 (08:37→19:54)
[2018-06-17] MEDS: CLOPIDOGREL 75 MG TAB PO (08:37)
[2018-06-17] MEDS: clonazePAM 0.5 MG TAB PO ×2 (08:37→19:54)
[2018-06-17] MEDS: ASPIRIN 81 MG ENTERIC TAB PO (08:37)
[2018-06-17] MEDS: BENZTROPINE 1 MG TAB PO ×2 (08:37→19:55)
[2018-06-17] MEDS: BRIMONIDINE 0.15% OPHTH SOLN 5 ML OS ×2 (08:37→19:57)
[2018-06-17] MEDS: LISINOPRIL 20 MG TAB PO (08:37)
[2018-06-17] MEDS: risperiDONE 2 MG TAB PO ×3 (08:37→19:54)
[2018-06-17] MEDS: BRINZOLAMIDE 1 % OPHTH SUSP (AZOPT) 10ML OS ×3 (08:37→19:57)
[2018-06-17] MEDS: PANTOPRAZOLE 40MG TAB (PROTONIX) PO (08:37)
[2018-06-17] MEDS: ADVAIR HFA 115/21MCG INHALER INH ×2 (08:38→19:57)
[2018-06-17] MEDS: LEVEMIR (INSULIN DETEMIR) 1 UNITS/0.01ML SC ×2 (08:38→19:54)
[2018-06-17] MEDS: FUROSEMIDE 20 MG TAB PO ×2 (08:52→15:43)
[2018-06-17 12:20] LABS: BEDSIDE GLUCOSE 125 MG/DL (70-105)
[2018-06-17] MEDS: ALBUTEROL 90 MCG/ACT 8GM HFA INHALER INH ×2 (17:01→22:18)
[2018-06-17 17:16] LABS: BEDSIDE GLUCOSE 116 MG/DL (70-105)
[2018-06-17] MEDS: rOPINIRole 0.25 MG TAB(REQUIP) PO (19:57)
[2018-06-17] MEDS: LATANOPROST 0.005% OPHTH SOLN 2.5 ML OU (19:58)
[2018-06-17 20:04] LABS: BEDSIDE GLUCOSE 203 MG/DL (70-105)
[2018-06-18 06:33] LABS: BEDSIDE GLUCOSE 125 MG/DL (70-105)
[2018-06-18] MEDS: LEVOTHYROXINE 25MCG TABLET (0.025MG) PO (06:33)
[2018-06-18] MEDS: HumaLOG INSULIN (NovoLOG) PER UNIT SC ×4 (06:34→20:28)
[2018-06-18] MEDS: BRINZOLAMIDE 1 % OPHTH SUSP (AZOPT) 10ML OS ×3 (09:55→20:21)
[2018-06-18] MEDS: FUROSEMIDE 20 MG TAB PO ×2 (09:55→15:21)
[2018-06-18] MEDS: BENZTROPINE 1 MG TAB PO ×2 (09:56→20:21)
[2018-06-18] MEDS: ADVAIR HFA 115/21MCG INHALER INH ×2 (09:56→20:21)
[2018-06-18] MEDS: CLOPIDOGREL 75 MG TAB PO (09:56)
[2018-06-18] MEDS: LISINOPRIL 20 MG TAB PO (09:56)
[2018-06-18] MEDS: risperiDONE 2 MG TAB PO ×3 (09:56→20:20)
[2018-06-18] MEDS: PANTOPRAZOLE 40MG TAB (PROTONIX) PO (09:56)
[2018-06-18] MEDS: ASPIRIN 81 MG ENTERIC TAB PO (09:56)
[2018-06-18] MEDS: NYSTATIN 100,000 UNITS/GM TOPICAL PWD 15 GM TOP (09:56)
[2018-06-18] MEDS: DIVALPROEX 250MG *ER* TAB PO ×2 (09:57→20:21)
[2018-06-18] MEDS: clonazePAM 0.5 MG TAB PO ×2 (09:58→20:22)
[2018-06-18] MEDS: BRIMONIDINE 0.15% OPHTH SOLN 5 ML OS ×2 (09:58→20:22)
[2018-06-18] MEDS: LEVEMIR (INSULIN DETEMIR) 1 UNITS/0.01ML SC ×2 (10:12→20:22)
[2018-06-18 12:07] LABS: BEDSIDE GLUCOSE 133 MG/DL (70-105)
[2018-06-18 17:15] LABS: BEDSIDE GLUCOSE 169 MG/DL (70-105)
[2018-06-18 20:17] LABS: BEDSIDE GLUCOSE 193 MG/DL (70-105)
[2018-06-18] MEDS: rOPINIRole 0.25 MG TAB(REQUIP) PO (20:21)
[2018-06-18] MEDS: LATANOPROST 0.005% OPHTH SOLN 2.5 ML OU (20:21)
[2018-06-19] MEDS: LEVOTHYROXINE 25MCG TABLET (0.025MG) PO (06:18)
[2018-06-19 06:47] LABS: BEDSIDE GLUCOSE 108 MG/DL (70-105)
[2018-06-19] MEDS: HumaLOG INSULIN (NovoLOG) PER UNIT SC ×4 (09:27→20:40)
[2018-06-19] MEDS: ASPIRIN 81 MG ENTERIC TAB PO (09:31)
[2018-06-19] MEDS: clonazePAM 0.5 MG TAB PO ×2 (09:31→20:32)
[2018-06-19] MEDS: CLOPIDOGREL 75 MG TAB PO (09:33)
[2018-06-19] MEDS: DIVALPROEX 250MG *ER* TAB PO ×2 (09:33→20:33)
[2018-06-19] MEDS: LISINOPRIL 20 MG TAB PO (09:33)
[2018-06-19] MEDS: PANTOPRAZOLE 40MG TAB (PROTONIX) PO (09:34)
[2018-06-19] MEDS: BENZTROPINE 1 MG TAB PO ×2 (09:34→20:32)
[2018-06-19] MEDS: risperiDONE 2 MG TAB PO ×3 (09:34→20:35)
[2018-06-19] MEDS: BRIMONIDINE 0.15% OPHTH SOLN 5 ML OS ×2 (09:35→20:34)
[2018-06-19] MEDS: BRINZOLAMIDE 1 % OPHTH SUSP (AZOPT) 10ML OS ×3 (09:36→20:31)
[2018-06-19] MEDS: LEVEMIR (INSULIN DETEMIR) 1 UNITS/0.01ML SC ×2 (09:36→20:37)
[2018-06-19] MEDS: ADVAIR HFA 115/21MCG INHALER INH ×2 (09:37→20:38)
[2018-06-19 12:27] LABS: BEDSIDE GLUCOSE 139 MG/DL (70-105)
[2018-06-19] MEDS: ACETAMINOPHEN TAB 650MG DOSE (2X325MG) PO ×2 (14:14→23:08)
[2018-06-19 17:30] LABS: BEDSIDE GLUCOSE 135 MG/DL (70-105)
[2018-06-19 20:33] LABS: BEDSIDE GLUCOSE 181 MG/DL (70-105)
[2018-06-19] MEDS: LATANOPROST 0.005% OPHTH SOLN 2.5 ML OU (20:35)
[2018-06-19] MEDS: rOPINIRole 0.25 MG TAB(REQUIP) PO (20:35)
[2018-06-19] MEDS: QUEtiapine FUMARATE 50 MG TAB PO (20:40)
[2018-06-20] MEDS: LEVOTHYROXINE 25MCG TABLET (0.025MG) PO (06:01)
[2018-06-20] MEDS: FUROSEMIDE 20 MG TAB PO ×2 (06:02→09:20)
[2018-06-20 06:18] LABS: BEDSIDE GLUCOSE 152 MG/DL (70-105)
[2018-06-20] MEDS: HumaLOG INSULIN (NovoLOG) PER UNIT SC ×4 (06:32→20:44)
[2018-06-20] MEDS: BRIMONIDINE 0.15% OPHTH SOLN 5 ML OS ×2 (09:17→20:45)
[2018-06-20] MEDS: BRINZOLAMIDE 1 % OPHTH SUSP (AZOPT) 10ML OS ×3 (09:18→20:45)
[2018-06-20] MEDS: ASPIRIN 81 MG ENTERIC TAB PO (09:18)
[2018-06-20] MEDS: risperiDONE 2 MG TAB PO ×3 (09:18→20:44)
[2018-06-20] MEDS: DIVALPROEX 250MG *ER* TAB PO ×2 (09:18→20:44)
[2018-06-20] MEDS: BENZTROPINE 1 MG TAB PO ×2 (09:18→20:44)
[2018-06-20] MEDS: clonazePAM 0.5 MG TAB PO ×2 (09:18→20:37)
[2018-06-20] MEDS: CLOPIDOGREL 75 MG TAB PO (09:18)
[2018-06-20] MEDS: PANTOPRAZOLE 40MG TAB (PROTONIX) PO (09:19)
[2018-06-20] MEDS: LISINOPRIL 20 MG TAB PO (09:19)
[2018-06-20] MEDS: LEVEMIR (INSULIN DETEMIR) 1 UNITS/0.01ML SC ×2 (09:20→20:45)
[2018-06-20] MEDS: ADVAIR HFA 115/21MCG INHALER INH ×2 (09:22→20:45)
[2018-06-20] MEDS: ALBUTEROL 90 MCG/ACT 8GM HFA INHALER INH (11:44)
[2018-06-20 12:18] LABS: BEDSIDE GLUCOSE 141 MG/DL (70-105)
[2018-06-20 16:30] LABS: BEDSIDE GLUCOSE 159 MG/DL (70-105)
[2018-06-20] MEDS: ACETAMINOPHEN TAB 650MG DOSE (2X325MG) PO (17:16)
[2018-06-20] MEDS: QUEtiapine FUMARATE 50 MG TAB PO ×2 (17:16→20:37)
[2018-06-20] MEDS: OLANZapine ORAL DISINTEGRATING TAB 5MG PO (20:37)
[2018-06-20 20:42] LABS: BEDSIDE GLUCOSE 193 MG/DL (70-105)
[2018-06-20] MEDS: rOPINIRole 0.25 MG TAB(REQUIP) PO (20:44)
[2018-06-20] MEDS: LATANOPROST 0.005% OPHTH SOLN 2.5 ML OU (20:45)
[2018-06-20] MEDS: UNRESOLVED CLARIFICATION ENTRY XX (23:13)
[2018-06-21] MEDS: LEVOTHYROXINE 25MCG TABLET (0.025MG) PO (06:22)
[2018-06-21] MEDS: HumaLOG INSULIN (NovoLOG) PER UNIT SC ×4 (06:45→21:00)
[2018-06-21 06:47] LABS: BEDSIDE GLUCOSE 116 MG/DL (70-105)
[2018-06-21 07:16] LABS: HEMATOCRIT 39.9 % (36.0-47.0); HEMOGLOBIN 12.8 g/dl (12.0-15.5); MEAN CORPUSCULAR HEMOGLOBIN 29.8 pg (27.0-33.0); MEAN CORPUSCULAR HGB CONC 32.1 g/dl (32.0-36.5); MEAN CORPUSCULAR VOLUME 92.8 fl (80.0-96.0); PLATELET COUNT, AUTOMATED 227 10^3/uL (150-450); RED CELL DISTRIBUTION WIDTH 12.9 % (11.5-14.5); WHITE BLOOD COUNT 11.5 10^3/uL (4.0-10.0)
[2018-06-21 07:39] LABS: ANION GAP 7 MEQ/L (8-16); BLOOD UREA NITROGEN 15 MG/DL (7-18); CALCIUM LEVEL 8.4 MG/DL (8.5-10.1); CARBON DIOXIDE LEVEL 30 MEQ/L (21-32); CHLORIDE LEVEL 105 MEQ/L (98-107); CREATININE FOR GFR 0.49 MG/DL (0.55-1.30); GLOMERULAR FILTRATION RATE > 60.0 (>51); GLUCOSE, FASTING 110 MG/DL (70-100); POTASSIUM SERUM 3.6 MEQ/L (3.5-5.1); SODIUM LEVEL 142 MEQ/L (136-145)
[2018-06-21] MEDS: LEVEMIR (INSULIN DETEMIR) 1 UNITS/0.01ML SC ×2 (09:14→21:59)
[2018-06-21] MEDS: BRINZOLAMIDE 1 % OPHTH SUSP (AZOPT) 10ML OS ×3 (09:14→21:59)
[2018-06-21] MEDS: ASPIRIN 81 MG ENTERIC TAB PO (09:15)
[2018-06-21] MEDS: clonazePAM 0.5 MG TAB PO ×2 (09:15→21:55)
[2018-06-21] MEDS: ADVAIR HFA 115/21MCG INHALER INH ×2 (09:15→21:59)
[2018-06-21] MEDS: CLOPIDOGREL 75 MG TAB PO (09:15)
[2018-06-21] MEDS: risperiDONE 2 MG TAB PO ×3 (09:15→21:55)
[2018-06-21] MEDS: FUROSEMIDE 20 MG TAB PO ×2 (09:15→16:44)
[2018-06-21] MEDS: PANTOPRAZOLE 40MG TAB (PROTONIX) PO (09:15)
[2018-06-21] MEDS: DIVALPROEX 250MG *ER* TAB PO ×2 (09:15→21:55)
[2018-06-21] MEDS: BRIMONIDINE 0.15% OPHTH SOLN 5 ML OS ×2 (09:15→21:59)
[2018-06-21] MEDS: BENZTROPINE 1 MG TAB PO ×2 (09:15→21:55)
[2018-06-21] MEDS: LISINOPRIL 20 MG TAB PO (09:16)
[2018-06-21 11:20] LABS: BEDSIDE GLUCOSE 189 MG/DL (70-105)
[2018-06-21] MEDS: ACETAMINOPHEN TAB 650MG DOSE (2X325MG) PO (15:19)
[2018-06-21] MEDS: ALBUTEROL 90 MCG/ACT 8GM HFA INHALER INH (15:26)
[2018-06-21 16:37] LABS: VALPROIC ACID (DEPAKOTE) 76.9 UG/ML (50.0-100.0)
[2018-06-21 17:06] LABS: BEDSIDE GLUCOSE 128 MG/DL (70-105)
[2018-06-21] MEDS: OLANZapine ORAL DISINTEGRATING TAB 5MG PO (21:55)
[2018-06-21] MEDS: ARIPiprazole 2 MG TAB PO (21:55)
[2018-06-21] MEDS: rOPINIRole 0.25 MG TAB(REQUIP) PO (21:55)
[2018-06-21] MEDS: QUEtiapine FUMARATE 50 MG TAB PO (21:55)
[2018-06-21] MEDS: LATANOPROST 0.005% OPHTH SOLN 2.5 ML OU (21:59)
[2018-06-21 23:28] LABS: BEDSIDE GLUCOSE 125 MG/DL (70-105)
[2018-06-22] MEDS: LEVOTHYROXINE 25MCG TABLET (0.025MG) PO (06:13)
[2018-06-22] MEDS: HumaLOG INSULIN (NovoLOG) PER UNIT SC ×4 (06:24→20:16)
[2018-06-22 06:29] LABS: BEDSIDE GLUCOSE 100 MG/DL (70-105)
[2018-06-22] MEDS: ADVAIR HFA 115/21MCG INHALER INH ×2 (09:50→20:14)
[2018-06-22] MEDS: BRIMONIDINE 0.15% OPHTH SOLN 5 ML OS ×2 (09:50→20:23)
[2018-06-22] MEDS: LEVEMIR (INSULIN DETEMIR) 1 UNITS/0.01ML SC ×2 (09:50→20:17)
[2018-06-22] MEDS: BRINZOLAMIDE 1 % OPHTH SUSP (AZOPT) 10ML OS ×3 (09:50→20:23)
[2018-06-22] MEDS: BENZTROPINE 1 MG TAB PO ×2 (09:51→20:15)
[2018-06-22] MEDS: risperiDONE 2 MG TAB PO ×3 (09:51→20:15)
[2018-06-22] MEDS: FUROSEMIDE 20 MG TAB PO ×2 (09:51→16:52)
[2018-06-22] MEDS: DIVALPROEX 250MG *ER* TAB PO ×2 (09:51→20:15)
[2018-06-22] MEDS: clonazePAM 0.5 MG TAB PO ×2 (09:52→20:15)
[2018-06-22] MEDS: ARIPiprazole 2 MG TAB PO ×2 (09:52→20:15)
[2018-06-22] MEDS: CLOPIDOGREL 75 MG TAB PO (09:52)
[2018-06-22] MEDS: PANTOPRAZOLE 40MG TAB (PROTONIX) PO (09:52)
[2018-06-22] MEDS: ASPIRIN 81 MG ENTERIC TAB PO (09:52)
[2018-06-22] MEDS: LISINOPRIL 20 MG TAB PO (10:03)
[2018-06-22] MEDS: ACETAMINOPHEN TAB 650MG DOSE (2X325MG) PO ×2 (11:36→22:34)
[2018-06-22 11:43] LABS: BEDSIDE GLUCOSE 181 MG/DL (70-105)
[2018-06-22 17:15] LABS: BEDSIDE GLUCOSE 93 MG/DL (70-105)
[2018-06-22 20:09] LABS: BEDSIDE GLUCOSE 150 MG/DL (70-105)
[2018-06-22] MEDS: rOPINIRole 0.25 MG TAB(REQUIP) PO (20:15)
[2018-06-22] MEDS: LATANOPROST 0.005% OPHTH SOLN 2.5 ML OU (20:23)
[2018-06-23] MEDS: OLANZapine ORAL DISINTEGRATING TAB 5MG PO ×2 (01:27→20:17)
[2018-06-23] MEDS: QUEtiapine FUMARATE 50 MG TAB PO ×2 (01:28→20:18)
[2018-06-23] MEDS: LEVOTHYROXINE 25MCG TABLET (0.025MG) PO (06:03)
[2018-06-23 06:38] LABS: BEDSIDE GLUCOSE 96 MG/DL (70-105)
[2018-06-23 06:40] LABS: ANION GAP 9 MEQ/L (8-16); BLOOD UREA NITROGEN 19 MG/DL (7-18); CALCIUM LEVEL 8.7 MG/DL (8.5-10.1); CARBON DIOXIDE LEVEL 28 MEQ/L (21-32); CHLORIDE LEVEL 101 MEQ/L (98-107); CREATININE FOR GFR 0.64 MG/DL (0.55-1.30); GLOMERULAR FILTRATION RATE > 60.0 (>51); GLUCOSE, FASTING 122 MG/DL (70-100); POTASSIUM SERUM 4.2 MEQ/L (3.5-5.1); SODIUM LEVEL 138 MEQ/L (136-145)
[2018-06-23] MEDS: HumaLOG INSULIN (NovoLOG) PER UNIT SC ×4 (07:26→20:18)
[2018-06-23] MEDS: ADVAIR HFA 115/21MCG INHALER INH ×2 (08:13→22:09)
[2018-06-23] MEDS: ASPIRIN 81 MG ENTERIC TAB PO (08:14)
[2018-06-23] MEDS: BENZTROPINE 1 MG TAB PO ×2 (08:14→20:18)
[2018-06-23] MEDS: ARIPiprazole 2 MG TAB PO ×2 (08:14→20:18)
[2018-06-23] MEDS: LISINOPRIL 20 MG TAB PO (08:14)
[2018-06-23] MEDS: CLOPIDOGREL 75 MG TAB PO (08:14)
[2018-06-23] MEDS: LEVEMIR (INSULIN DETEMIR) 1 UNITS/0.01ML SC ×2 (08:14→20:03)
[2018-06-23] MEDS: clonazePAM 0.5 MG TAB PO ×2 (08:14→20:18)
[2018-06-23] MEDS: risperiDONE 2 MG TAB PO ×3 (08:14→20:18)
[2018-06-23] MEDS: FUROSEMIDE 20 MG TAB PO ×2 (08:15→16:11)
[2018-06-23] MEDS: DIVALPROEX 250MG *ER* TAB PO ×2 (08:15→20:18)
[2018-06-23] MEDS: PANTOPRAZOLE 40MG TAB (PROTONIX) PO (08:16)
[2018-06-23] MEDS: BRINZOLAMIDE 1 % OPHTH SUSP (AZOPT) 10ML OS ×3 (08:18→20:17)
[2018-06-23] MEDS: BRIMONIDINE 0.15% OPHTH SOLN 5 ML OS ×2 (08:18→20:17)
[2018-06-23 12:21] LABS: BEDSIDE GLUCOSE 96 MG/DL (70-105)
[2018-06-23] MEDS: ALBUTEROL 90 MCG/ACT 8GM HFA INHALER INH ×2 (13:34→20:16)
[2018-06-23 17:17] LABS: BEDSIDE GLUCOSE 124 MG/DL (70-105)
[2018-06-23 20:00] LABS: BEDSIDE GLUCOSE 106 MG/DL (70-105)
[2018-06-23] MEDS: LATANOPROST 0.005% OPHTH SOLN 2.5 ML OU (20:17)
[2018-06-23] MEDS: rOPINIRole 0.25 MG TAB(REQUIP) PO (20:17)
[2018-06-24] MEDS: LEVOTHYROXINE 25MCG TABLET (0.025MG) PO (06:07)
[2018-06-24 06:24] LABS: BEDSIDE GLUCOSE 106 MG/DL (70-105)
[2018-06-24] MEDS: HumaLOG INSULIN (NovoLOG) PER UNIT SC ×4 (06:57→21:00)
[2018-06-24] MEDS: ADVAIR HFA 115/21MCG INHALER INH ×2 (09:53→21:52)
[2018-06-24] MEDS: LEVEMIR (INSULIN DETEMIR) 1 UNITS/0.01ML SC ×2 (09:53→21:52)
[2018-06-24] MEDS: ASPIRIN 81 MG ENTERIC TAB PO (09:54)
[2018-06-24] MEDS: DIVALPROEX 250MG *ER* TAB PO ×2 (09:54→21:49)
[2018-06-24] MEDS: ARIPiprazole 2 MG TAB PO (09:54)
[2018-06-24] MEDS: risperiDONE 2 MG TAB PO ×3 (09:54→21:48)
[2018-06-24] MEDS: FUROSEMIDE 20 MG TAB PO ×2 (09:54→16:32)
[2018-06-24] MEDS: BENZTROPINE 1 MG TAB PO ×2 (09:54→21:49)
[2018-06-24] MEDS: PANTOPRAZOLE 40MG TAB (PROTONIX) PO (09:54)
[2018-06-24] MEDS: BRIMONIDINE 0.15% OPHTH SOLN 5 ML OS ×2 (09:54→21:53)
[2018-06-24] MEDS: CLOPIDOGREL 75 MG TAB PO (09:54)
[2018-06-24] MEDS: clonazePAM 0.5 MG TAB PO ×2 (09:54→21:53)
[2018-06-24] MEDS: LISINOPRIL 20 MG TAB PO (09:55)
[2018-06-24] MEDS: BRINZOLAMIDE 1 % OPHTH SUSP (AZOPT) 10ML OS ×3 (09:55→21:53)
[2018-06-24] MEDS: ACETAMINOPHEN TAB 650MG DOSE (2X325MG) PO ×2 (10:07→21:51)
[2018-06-24 11:47] LABS: BEDSIDE GLUCOSE 201 MG/DL (70-105)
[2018-06-24] MEDS: QUEtiapine FUMARATE 50 MG TAB PO (11:49)
[2018-06-24 17:09] LABS: BEDSIDE GLUCOSE 271 MG/DL (70-105)
[2018-06-24 21:41] LABS: BEDSIDE GLUCOSE 142 MG/DL (70-105)
[2018-06-24] MEDS: rOPINIRole 0.25 MG TAB(REQUIP) PO (21:49)
[2018-06-24] MEDS: LATANOPROST 0.005% OPHTH SOLN 2.5 ML OU (21:53)
[2018-06-25] MEDS: LEVOTHYROXINE 25MCG TABLET (0.025MG) PO (06:15)
[2018-06-25 06:46] LABS: BEDSIDE GLUCOSE 81 MG/DL (70-105)
[2018-06-25] MEDS: HumaLOG INSULIN (NovoLOG) PER UNIT SC ×4 (06:50→21:00)
[2018-06-25] MEDS: risperiDONE 2 MG TAB PO ×3 (08:33→22:53)
[2018-06-25] MEDS: LEVEMIR (INSULIN DETEMIR) 1 UNITS/0.01ML SC ×2 (08:33→22:55)
[2018-06-25] MEDS: LISINOPRIL 20 MG TAB PO (08:33)
[2018-06-25] MEDS: PANTOPRAZOLE 40MG TAB (PROTONIX) PO (08:33)
[2018-06-25] MEDS: BENZTROPINE 1 MG TAB PO ×2 (08:34→22:53)
[2018-06-25] MEDS: DIVALPROEX 250MG *ER* TAB PO ×2 (08:34→22:52)
[2018-06-25] MEDS: ASPIRIN 81 MG ENTERIC TAB PO (08:34)
[2018-06-25] MEDS: ADVAIR HFA 115/21MCG INHALER INH ×2 (08:34→21:00)
[2018-06-25] MEDS: CLOPIDOGREL 75 MG TAB PO (08:34)
[2018-06-25] MEDS: BRINZOLAMIDE 1 % OPHTH SUSP (AZOPT) 10ML OS ×3 (08:34→21:00)
[2018-06-25] MEDS: clonazePAM 0.5 MG TAB PO ×2 (08:34→22:52)
[2018-06-25] MEDS: FUROSEMIDE 20 MG TAB PO ×2 (08:34→16:35)
[2018-06-25] MEDS: BRIMONIDINE 0.15% OPHTH SOLN 5 ML OS ×2 (08:35→21:00)
[2018-06-25 12:09] LABS: BEDSIDE GLUCOSE 125 MG/DL (70-105)
[2018-06-25] MEDS: ALBUTEROL 90 MCG/ACT 8GM HFA INHALER INH (16:35)
[2018-06-25 17:10] LABS: BEDSIDE GLUCOSE 184 MG/DL (70-105)
[2018-06-25] MEDS: LATANOPROST 0.005% OPHTH SOLN 2.5 ML OU (21:00)
[2018-06-25] MEDS: QUEtiapine FUMARATE 50 MG TAB PO (22:52)
[2018-06-25] MEDS: OLANZapine ORAL DISINTEGRATING TAB 5MG PO (22:53)
[2018-06-25] MEDS: rOPINIRole 0.25 MG TAB(REQUIP) PO (22:53)
[2018-06-25 23:30] LABS: BEDSIDE GLUCOSE 174 MG/DL (70-105)
[2018-06-26] MEDS: LEVOTHYROXINE 25MCG TABLET (0.025MG) PO (06:00)
[2018-06-26 06:34] LABS: BEDSIDE GLUCOSE 122 MG/DL (70-105)
[2018-06-26] MEDS: HumaLOG INSULIN (NovoLOG) PER UNIT SC ×4 (06:35→22:39)
[2018-06-26] MEDS: BENZTROPINE 1 MG TAB PO ×2 (09:00→22:37)
[2018-06-26] MEDS: risperiDONE 2 MG TAB PO ×3 (09:00→22:37)
[2018-06-26] MEDS: BRIMONIDINE 0.15% OPHTH SOLN 5 ML OS ×2 (09:00→22:39)
[2018-06-26] MEDS: DIVALPROEX 250MG *ER* TAB PO ×2 (09:00→22:38)
[2018-06-26] MEDS: BRINZOLAMIDE 1 % OPHTH SUSP (AZOPT) 10ML OS ×3 (09:00→22:49)
[2018-06-26] MEDS: CLOPIDOGREL 75 MG TAB PO (09:00)
[2018-06-26] MEDS: FUROSEMIDE 20 MG TAB PO ×2 (09:00→17:22)
[2018-06-26] MEDS: LEVEMIR (INSULIN DETEMIR) 1 UNITS/0.01ML SC ×2 (09:00→22:39)
[2018-06-26] MEDS: ADVAIR HFA 115/21MCG INHALER INH ×2 (09:00→22:39)
[2018-06-26] MEDS: clonazePAM 0.5 MG TAB PO ×2 (09:00→22:37)
[2018-06-26 12:15] LABS: BEDSIDE GLUCOSE 121 MG/DL (70-105)
[2018-06-26] MEDS: PANTOPRAZOLE 40MG TAB (PROTONIX) PO (17:20)
[2018-06-26] MEDS: ASPIRIN 81 MG ENTERIC TAB PO (17:21)
[2018-06-26] MEDS: LISINOPRIL 20 MG TAB PO (17:21)
[2018-06-26 18:25] LABS: BEDSIDE GLUCOSE 181 MG/DL (70-105)
[2018-06-26] MEDS: rOPINIRole 0.25 MG TAB(REQUIP) PO (22:38)
[2018-06-26] MEDS: ACETAMINOPHEN TAB 650MG DOSE (2X325MG) PO (22:48)
[2018-06-26] MEDS: OLANZapine ORAL DISINTEGRATING TAB 5MG PO (22:48)
[2018-06-26] MEDS: QUEtiapine FUMARATE 50 MG TAB PO (22:48)
[2018-06-26] MEDS: LATANOPROST 0.005% OPHTH SOLN 2.5 ML OU (22:49)
[2018-06-26 23:00] LABS: BEDSIDE GLUCOSE 183 MG/DL (70-105)
[2018-06-27] MEDS: QUEtiapine FUMARATE 50 MG TAB PO ×3 (04:19→22:13)
[2018-06-27] MEDS: ACETAMINOPHEN TAB 650MG DOSE (2X325MG) PO ×2 (04:48→18:16)
[2018-06-27] MEDS: LEVOTHYROXINE 25MCG TABLET (0.025MG) PO (06:09)
[2018-06-27] MEDS: HumaLOG INSULIN (NovoLOG) PER UNIT SC ×4 (06:10→21:00)
[2018-06-27 06:47] LABS: BEDSIDE GLUCOSE 142 MG/DL (70-105)
[2018-06-27] MEDS: IBUPROFEN 400 MG TAB PO (06:50)
[2018-06-27 07:13] LABS: ANION GAP 10 MEQ/L (8-16); BLOOD UREA NITROGEN 19 MG/DL (7-18); CALCIUM LEVEL 8.7 MG/DL (8.5-10.1); CARBON DIOXIDE LEVEL 28 MEQ/L (21-32); CHLORIDE LEVEL 101 MEQ/L (98-107); CREATININE FOR GFR 0.59 MG/DL (0.55-1.30); GLOMERULAR FILTRATION RATE > 60.0 (>51); GLUCOSE, FASTING 146 MG/DL (70-100); POTASSIUM SERUM 3.9 MEQ/L (3.5-5.1); SODIUM LEVEL 139 MEQ/L (136-145)
[2018-06-27] MEDS: DIVALPROEX 250MG *ER* TAB PO ×2 (09:13→21:27)
[2018-06-27] MEDS: clonazePAM 0.5 MG TAB PO ×2 (09:13→21:27)
[2018-06-27] MEDS: CLOPIDOGREL 75 MG TAB PO (09:13)
[2018-06-27] MEDS: PANTOPRAZOLE 40MG TAB (PROTONIX) PO (09:13)
[2018-06-27] MEDS: BENZTROPINE 1 MG TAB PO ×2 (09:13→21:27)
[2018-06-27] MEDS: risperiDONE 2 MG TAB PO ×3 (09:13→21:27)
[2018-06-27] MEDS: BRIMONIDINE 0.15% OPHTH SOLN 5 ML OS ×2 (09:14→21:49)
[2018-06-27] MEDS: ASPIRIN 81 MG ENTERIC TAB PO (09:14)
[2018-06-27] MEDS: LISINOPRIL 20 MG TAB PO (09:14)
[2018-06-27] MEDS: FUROSEMIDE 20 MG TAB PO ×2 (09:14→16:05)
[2018-06-27] MEDS: BRINZOLAMIDE 1 % OPHTH SUSP (AZOPT) 10ML OS ×3 (09:14→21:49)
[2018-06-27] MEDS: ADVAIR HFA 115/21MCG INHALER INH ×2 (09:15→21:48)
[2018-06-27] MEDS: LEVEMIR (INSULIN DETEMIR) 1 UNITS/0.01ML SC ×2 (09:21→21:24)
[2018-06-27 12:30] LABS: BEDSIDE GLUCOSE 103 MG/DL (70-105)
[2018-06-27] MEDS ORDERED: QUEtiapine FUMARATE 50 MG TAB PO (14:00)
[2018-06-27 17:21] LABS: BEDSIDE GLUCOSE 74 MG/DL (70-105)
[2018-06-27 20:45] LABS: BEDSIDE GLUCOSE 173 MG/DL (70-105)
[2018-06-27] MEDS: rOPINIRole 0.25 MG TAB(REQUIP) PO (21:27)
[2018-06-27] MEDS: LATANOPROST 0.005% OPHTH SOLN 2.5 ML OU (21:49)
[2018-06-27] MEDS: OLANZapine ORAL DISINTEGRATING TAB 5MG PO (22:13)
[2018-06-28] MEDS: IBUPROFEN 400 MG TAB PO ×2 (05:44→14:26)
[2018-06-28] MEDS: LEVOTHYROXINE 25MCG TABLET (0.025MG) PO (05:57)
[2018-06-28 06:37] LABS: BEDSIDE GLUCOSE 119 MG/DL (70-105)
[2018-06-28] MEDS: HumaLOG INSULIN (NovoLOG) PER UNIT SC ×4 (06:59→21:00)
[2018-06-28] MEDS: LISINOPRIL 20 MG TAB PO (09:37)
[2018-06-28] MEDS: BRIMONIDINE 0.15% OPHTH SOLN 5 ML OS ×2 (09:37→21:24)
[2018-06-28] MEDS: BRINZOLAMIDE 1 % OPHTH SUSP (AZOPT) 10ML OS ×3 (09:37→21:24)
[2018-06-28] MEDS: clonazePAM 0.5 MG TAB PO ×2 (09:37→21:13)
[2018-06-28] MEDS: FUROSEMIDE 20 MG TAB PO ×2 (09:38→17:03)
[2018-06-28] MEDS: BENZTROPINE 1 MG TAB PO ×2 (09:38→21:11)
[2018-06-28] MEDS: CLOPIDOGREL 75 MG TAB PO (09:38)
[2018-06-28] MEDS: DIVALPROEX 250MG *ER* TAB PO ×2 (09:38→21:12)
[2018-06-28] MEDS: PANTOPRAZOLE 40MG TAB (PROTONIX) PO (09:38)
[2018-06-28] MEDS: risperiDONE 2 MG TAB PO ×3 (09:38→21:12)
[2018-06-28] MEDS: ASPIRIN 81 MG ENTERIC TAB PO (09:38)
[2018-06-28] MEDS: ADVAIR HFA 115/21MCG INHALER INH ×2 (09:39→21:18)
[2018-06-28] MEDS: LEVEMIR (INSULIN DETEMIR) 1 UNITS/0.01ML SC ×2 (09:41→21:25)
[2018-06-28] MEDS: ACETAMINOPHEN TAB 650MG DOSE (2X325MG) PO (11:29)
[2018-06-28 12:20] LABS: BEDSIDE GLUCOSE 95 MG/DL (70-105)
[2018-06-28 17:32] LABS: BEDSIDE GLUCOSE 66 MG/DL (70-105)
[2018-06-28 19:39] LABS: BEDSIDE GLUCOSE 102 MG/DL (70-105)
[2018-06-28] MEDS: LATANOPROST 0.005% OPHTH SOLN 2.5 ML OU (21:00)
[2018-06-28] MEDS: OLANZapine ORAL DISINTEGRATING TAB 5MG PO (21:11)
[2018-06-28] MEDS: QUEtiapine FUMARATE 50 MG TAB PO (21:12)
[2018-06-28] MEDS: rOPINIRole 0.25 MG TAB(REQUIP) PO (21:13)
[2018-06-29] MEDS: LEVOTHYROXINE 25MCG TABLET (0.025MG) PO (06:06)
[2018-06-29 06:27] LABS: BEDSIDE GLUCOSE 122 MG/DL (70-105)
[2018-06-29] MEDS: HumaLOG INSULIN (NovoLOG) PER UNIT SC ×4 (07:00→21:00)
[2018-06-29] MEDS: BRINZOLAMIDE 1 % OPHTH SUSP (AZOPT) 10ML OS ×3 (08:15→21:14)
[2018-06-29] MEDS: BRIMONIDINE 0.15% OPHTH SOLN 5 ML OS ×2 (08:22→21:14)
[2018-06-29] MEDS: LISINOPRIL 20 MG TAB PO (08:24)
[2018-06-29] MEDS: risperiDONE 2 MG TAB PO ×3 (08:25→21:13)
[2018-06-29] MEDS: clonazePAM 0.5 MG TAB PO ×2 (08:25→21:12)
[2018-06-29] MEDS: PILL CRUSHER/CUTTER 1 EACH XX (08:25)
[2018-06-29] MEDS: BENZTROPINE 1 MG TAB PO ×2 (08:27→21:13)
[2018-06-29] MEDS: FUROSEMIDE 20 MG TAB PO ×2 (08:27→16:11)
[2018-06-29] MEDS: ADVAIR HFA 115/21MCG INHALER INH ×2 (08:27→21:14)
[2018-06-29] MEDS: ASPIRIN 81 MG ENTERIC TAB PO (08:27)
[2018-06-29] MEDS: CLOPIDOGREL 75 MG TAB PO (08:28)
[2018-06-29] MEDS: PANTOPRAZOLE 40MG TAB (PROTONIX) PO (08:28)
[2018-06-29] MEDS: DIVALPROEX 250MG *ER* TAB PO ×2 (08:28→21:12)
[2018-06-29] MEDS: LEVEMIR (INSULIN DETEMIR) 1 UNITS/0.01ML SC ×2 (08:30→21:13)
[2018-06-29] MEDS: IBUPROFEN 400 MG TAB PO ×2 (11:32→20:19)
[2018-06-29 11:34] LABS: BEDSIDE GLUCOSE 149 MG/DL (70-105)
[2018-06-29] MEDS: ALBUTEROL 90 MCG/ACT 8GM HFA INHALER INH (14:07)
[2018-06-29] MEDS: ACETAMINOPHEN TAB 650MG DOSE (2X325MG) PO (15:27)
[2018-06-29 17:15] LABS: BEDSIDE GLUCOSE 103 MG/DL (70-105)
[2018-06-29] MEDS: QUEtiapine FUMARATE 50 MG TAB PO (20:19)
[2018-06-29] MEDS: OLANZapine ORAL DISINTEGRATING TAB 5MG PO (20:19)
[2018-06-29] MEDS: rOPINIRole 0.25 MG TAB(REQUIP) PO (21:13)
[2018-06-29] MEDS: LATANOPROST 0.005% OPHTH SOLN 2.5 ML OU (21:14)
[2018-06-29 23:00] LABS: BEDSIDE GLUCOSE 142 MG/DL (70-105)
[2018-06-30] MEDS: LEVOTHYROXINE 25MCG TABLET (0.025MG) PO (06:23)
[2018-06-30 06:31] LABS: BEDSIDE GLUCOSE 130 MG/DL (70-105)
[2018-06-30] MEDS: HumaLOG INSULIN (NovoLOG) PER UNIT SC ×4 (06:34→21:00)
[2018-06-30 07:22] LABS: ANION GAP 6 MEQ/L (8-16); BLOOD UREA NITROGEN 16 MG/DL (7-18); CALCIUM LEVEL 8.2 MG/DL (8.5-10.1); CARBON DIOXIDE LEVEL 30 MEQ/L (21-32); CHLORIDE LEVEL 99 MEQ/L (98-107); CREATININE FOR GFR 0.54 MG/DL (0.55-1.30); GLOMERULAR FILTRATION RATE > 60.0 (>51); GLUCOSE, FASTING 125 MG/DL (70-100); POTASSIUM SERUM 4.4 MEQ/L (3.5-5.1); SODIUM LEVEL 135 MEQ/L (136-145)
[2018-06-30] MEDS: BRIMONIDINE 0.15% OPHTH SOLN 5 ML OS ×2 (09:02→21:48)
[2018-06-30] MEDS: clonazePAM 0.5 MG TAB PO ×2 (09:03→21:50)
[2018-06-30] MEDS: LISINOPRIL 20 MG TAB PO (09:03)
[2018-06-30] MEDS: risperiDONE 2 MG TAB PO ×3 (09:03→21:47)
[2018-06-30] MEDS: QUEtiapine FUMARATE 50 MG TAB PO ×2 (09:04→22:03)
[2018-06-30] MEDS: OLANZapine ORAL DISINTEGRATING TAB 5MG PO ×2 (09:05→22:03)
[2018-06-30] MEDS: ASPIRIN 81 MG ENTERIC TAB PO (09:05)
[2018-06-30] MEDS: BENZTROPINE 1 MG TAB PO ×2 (09:05→21:47)
[2018-06-30] MEDS: FUROSEMIDE 20 MG TAB PO ×2 (09:05→16:52)
[2018-06-30] MEDS: LEVEMIR (INSULIN DETEMIR) 1 UNITS/0.01ML SC ×2 (09:07→21:50)
[2018-06-30] MEDS: DIVALPROEX 250MG *ER* TAB PO ×2 (09:08→21:47)
[2018-06-30] MEDS: IBUPROFEN 400 MG TAB PO ×2 (09:08→22:04)
[2018-06-30] MEDS: CLOPIDOGREL 75 MG TAB PO (09:11)
[2018-06-30] MEDS: PANTOPRAZOLE 40MG TAB (PROTONIX) PO (09:11)
[2018-06-30] MEDS: ADVAIR HFA 115/21MCG INHALER INH ×2 (09:11→21:48)
[2018-06-30] MEDS: BRINZOLAMIDE 1 % OPHTH SUSP (AZOPT) 10ML OS ×3 (09:11→21:48)
[2018-06-30 12:12] LABS: BEDSIDE GLUCOSE 84 MG/DL (70-105)
[2018-06-30 17:12] LABS: BEDSIDE GLUCOSE 122 MG/DL (70-105)
[2018-06-30] MEDS: rOPINIRole 0.25 MG TAB(REQUIP) PO (21:47)
[2018-06-30] MEDS: LATANOPROST 0.005% OPHTH SOLN 2.5 ML OU (21:48)
[2018-06-30 21:52] LABS: BEDSIDE GLUCOSE 129 MG/DL (70-105)
[2018-07-01] MEDS: LEVOTHYROXINE 25MCG TABLET (0.025MG) PO (06:09)
[2018-07-01] MEDS: HumaLOG INSULIN (NovoLOG) PER UNIT SC ×4 (06:17→20:25)
[2018-07-01 06:22] LABS: BEDSIDE GLUCOSE 120 MG/DL (70-105)
[2018-07-01] MEDS: ASPIRIN 81 MG ENTERIC TAB PO (08:47)
[2018-07-01] MEDS: ADVAIR HFA 115/21MCG INHALER INH ×2 (08:47→20:26)
[2018-07-01] MEDS: BENZTROPINE 1 MG TAB PO ×2 (08:47→20:25)
[2018-07-01] MEDS: LISINOPRIL 20 MG TAB PO (08:47)
[2018-07-01] MEDS: DIVALPROEX 250MG *ER* TAB PO ×2 (08:47→20:25)
[2018-07-01] MEDS: clonazePAM 0.5 MG TAB PO ×2 (08:47→20:24)
[2018-07-01] MEDS: BRIMONIDINE 0.15% OPHTH SOLN 5 ML OS ×2 (08:48→21:07)
[2018-07-01] MEDS: risperiDONE 2 MG TAB PO ×3 (08:48→20:24)
[2018-07-01] MEDS: CLOPIDOGREL 75 MG TAB PO (08:48)
[2018-07-01] MEDS: BRINZOLAMIDE 1 % OPHTH SUSP (AZOPT) 10ML OS ×3 (08:48→21:07)
[2018-07-01] MEDS: FUROSEMIDE 20 MG TAB PO ×2 (08:48→17:18)
[2018-07-01] MEDS: LEVEMIR (INSULIN DETEMIR) 1 UNITS/0.01ML SC ×2 (08:48→20:26)
[2018-07-01] MEDS: PANTOPRAZOLE 40MG TAB (PROTONIX) PO (08:48)
[2018-07-01 12:14] LABS: BEDSIDE GLUCOSE 133 MG/DL (70-105)
[2018-07-01] MEDS: IBUPROFEN 400 MG TAB PO (12:15)
[2018-07-01 17:17] LABS: BEDSIDE GLUCOSE 114 MG/DL (70-105)
[2018-07-01 20:18] LABS: BEDSIDE GLUCOSE 124 MG/DL (70-105)
[2018-07-01] MEDS: rOPINIRole 0.25 MG TAB(REQUIP) PO (20:24)
[2018-07-01] MEDS: LATANOPROST 0.005% OPHTH SOLN 2.5 ML OU (21:08)
[2018-07-02] MEDS: LEVOTHYROXINE 25MCG TABLET (0.025MG) PO (06:13)
[2018-07-02 06:22] LABS: BEDSIDE GLUCOSE 100 MG/DL (70-105)
[2018-07-02] MEDS: HumaLOG INSULIN (NovoLOG) PER UNIT SC ×4 (07:12→20:20)
[2018-07-02] MEDS: DIVALPROEX 250MG *ER* TAB PO ×2 (09:29→20:11)
[2018-07-02] MEDS: PANTOPRAZOLE 40MG TAB (PROTONIX) PO (09:29)
[2018-07-02] MEDS: clonazePAM 0.5 MG TAB PO ×2 (09:29→20:11)
[2018-07-02] MEDS: risperiDONE 2 MG TAB PO ×3 (09:29→20:11)
[2018-07-02] MEDS: BENZTROPINE 1 MG TAB PO ×2 (09:29→20:11)
[2018-07-02] MEDS: FUROSEMIDE 20 MG TAB PO ×2 (09:29→16:55)
[2018-07-02] MEDS: ASPIRIN 81 MG ENTERIC TAB PO (09:29)
[2018-07-02] MEDS: LISINOPRIL 20 MG TAB PO (09:29)
[2018-07-02] MEDS: BRIMONIDINE 0.15% OPHTH SOLN 5 ML OS ×2 (09:29→20:11)
[2018-07-02] MEDS: CLOPIDOGREL 75 MG TAB PO (09:30)
[2018-07-02] MEDS: ADVAIR HFA 115/21MCG INHALER INH ×2 (09:31→20:08)
[2018-07-02] MEDS: BRINZOLAMIDE 1 % OPHTH SUSP (AZOPT) 10ML OS ×3 (09:31→20:11)
[2018-07-02] MEDS: LEVEMIR (INSULIN DETEMIR) 1 UNITS/0.01ML SC ×2 (09:33→20:08)
[2018-07-02 12:15] LABS: BEDSIDE GLUCOSE 137 MG/DL (70-105)
[2018-07-02 17:25] LABS: BEDSIDE GLUCOSE 107 MG/DL (70-105)
[2018-07-02] MEDS: IBUPROFEN 400 MG TAB PO (19:48)
[2018-07-02] MEDS: ALBUTEROL 90 MCG/ACT 8GM HFA INHALER INH (19:52)
[2018-07-02 20:08] LABS: BEDSIDE GLUCOSE 146 MG/DL (70-105)
[2018-07-02] MEDS: rOPINIRole 0.25 MG TAB(REQUIP) PO (20:11)
[2018-07-02] MEDS: LATANOPROST 0.005% OPHTH SOLN 2.5 ML OU (21:00)
[2018-07-03] MEDS: IBUPROFEN 400 MG TAB PO ×3 (03:25→15:37)
[2018-07-03] MEDS: ALBUTEROL 90 MCG/ACT 8GM HFA INHALER INH (04:21)
[2018-07-03] MEDS: LEVOTHYROXINE 25MCG TABLET (0.025MG) PO (05:55)
[2018-07-03 06:22] LABS: BEDSIDE GLUCOSE 100 MG/DL (70-105)
[2018-07-03] MEDS: HumaLOG INSULIN (NovoLOG) PER UNIT SC ×4 (06:53→20:27)
[2018-07-03] MEDS: risperiDONE 2 MG TAB PO ×3 (08:45→20:34)
[2018-07-03] MEDS: clonazePAM 0.5 MG TAB PO ×2 (08:48→20:34)
[2018-07-03] MEDS: LISINOPRIL 20 MG TAB PO (08:48)
[2018-07-03] MEDS: CLOPIDOGREL 75 MG TAB PO (08:49)
[2018-07-03] MEDS: BENZTROPINE 1 MG TAB PO ×2 (08:49→20:35)
[2018-07-03] MEDS: PANTOPRAZOLE 40MG TAB (PROTONIX) PO (08:49)
[2018-07-03] MEDS: QUEtiapine FUMARATE 50 MG TAB PO ×2 (08:49→20:34)
[2018-07-03] MEDS: ASPIRIN 81 MG ENTERIC TAB PO (08:50)
[2018-07-03] MEDS: FUROSEMIDE 20 MG TAB PO ×2 (08:50→16:03)
[2018-07-03] MEDS: OLANZapine ORAL DISINTEGRATING TAB 5MG PO (08:50)
[2018-07-03] MEDS: DIVALPROEX 250MG *ER* TAB PO ×2 (08:51→20:35)
[2018-07-03] MEDS: BRIMONIDINE 0.15% OPHTH SOLN 5 ML OS ×2 (08:52→20:36)
[2018-07-03] MEDS: ADVAIR HFA 115/21MCG INHALER INH ×2 (08:52→20:36)
[2018-07-03] MEDS: LEVEMIR (INSULIN DETEMIR) 1 UNITS/0.01ML SC ×2 (08:53→20:34)
[2018-07-03] MEDS: BRINZOLAMIDE 1 % OPHTH SUSP (AZOPT) 10ML OS ×3 (08:53→20:36)
[2018-07-03 12:17] LABS: BEDSIDE GLUCOSE 126 MG/DL (70-105)
[2018-07-03 17:17] LABS: BEDSIDE GLUCOSE 87 MG/DL (70-105)
[2018-07-03 20:29] LABS: BEDSIDE GLUCOSE 172 MG/DL (70-105)
[2018-07-03] MEDS: rOPINIRole 0.25 MG TAB(REQUIP) PO (20:35)
[2018-07-03] MEDS: LATANOPROST 0.005% OPHTH SOLN 2.5 ML OU (20:36)
[2018-07-04] MEDS: LEVOTHYROXINE 25MCG TABLET (0.025MG) PO (05:56)
[2018-07-04 06:10] LABS: BEDSIDE GLUCOSE 206 MG/DL (70-105)
[2018-07-04] MEDS: HumaLOG INSULIN (NovoLOG) PER UNIT SC ×4 (06:47→21:00)
[2018-07-04 07:18] LABS: ANION GAP 6 MEQ/L (8-16); BLOOD UREA NITROGEN 16 MG/DL (7-18); CALCIUM LEVEL 8.5 MG/DL (8.5-10.1); CARBON DIOXIDE LEVEL 30 MEQ/L (21-32); CHLORIDE LEVEL 101 MEQ/L (98-107); CREATININE FOR GFR 0.52 MG/DL (0.55-1.30); GLOMERULAR FILTRATION RATE > 60.0 (>51); GLUCOSE, FASTING 212 MG/DL (70-100); POTASSIUM SERUM 4.7 MEQ/L (3.5-5.1); SODIUM LEVEL 137 MEQ/L (136-145)
[2018-07-04] MEDS: BRINZOLAMIDE 1 % OPHTH SUSP (AZOPT) 10ML OS ×3 (08:08→21:34)
[2018-07-04] MEDS: LEVEMIR (INSULIN DETEMIR) 1 UNITS/0.01ML SC ×2 (08:08→21:34)
[2018-07-04] MEDS: ADVAIR HFA 115/21MCG INHALER INH ×2 (08:09→21:00)
[2018-07-04] MEDS: BRIMONIDINE 0.15% OPHTH SOLN 5 ML OS ×2 (08:09→21:34)
[2018-07-04] MEDS: FUROSEMIDE 20 MG TAB PO ×2 (08:11→17:20)
[2018-07-04] MEDS: PANTOPRAZOLE 40MG TAB (PROTONIX) PO (08:11)
[2018-07-04] MEDS: risperiDONE 2 MG TAB PO ×3 (08:11→21:29)
[2018-07-04] MEDS: CLOPIDOGREL 75 MG TAB PO (08:11)
[2018-07-04] MEDS: DIVALPROEX 250MG *ER* TAB PO ×2 (08:11→21:30)
[2018-07-04] MEDS: BENZTROPINE 1 MG TAB PO ×2 (08:12→21:30)
[2018-07-04] MEDS: ASPIRIN 81 MG ENTERIC TAB PO (08:12)
[2018-07-04] MEDS: clonazePAM 0.5 MG TAB PO ×2 (08:12→21:29)
[2018-07-04] MEDS: LISINOPRIL 20 MG TAB PO (08:12)
[2018-07-04 11:19] LABS: BEDSIDE GLUCOSE 142 MG/DL (70-105)
[2018-07-04] MEDS: IBUPROFEN 400 MG TAB PO ×2 (15:04→21:30)
[2018-07-04 17:14] LABS: BEDSIDE GLUCOSE 209 MG/DL (70-105)
[2018-07-04] MEDS: ALBUTEROL 90 MCG/ACT 8GM HFA INHALER INH (18:48)
[2018-07-04 21:26] LABS: BEDSIDE GLUCOSE 115 MG/DL (70-105)
[2018-07-04] MEDS: QUEtiapine FUMARATE 50 MG TAB PO (21:30)
[2018-07-04] MEDS: OLANZapine ORAL DISINTEGRATING TAB 5MG PO (21:30)
[2018-07-04] MEDS: rOPINIRole 0.25 MG TAB(REQUIP) PO (21:31)
[2018-07-04] MEDS: LATANOPROST 0.005% OPHTH SOLN 2.5 ML OU (21:35)
[2018-07-05] MEDS: LEVOTHYROXINE 25MCG TABLET (0.025MG) PO (06:15)
[2018-07-05] MEDS: HumaLOG INSULIN (NovoLOG) PER UNIT SC ×4 (06:26→21:00)
[2018-07-05 06:28] LABS: BEDSIDE GLUCOSE 114 MG/DL (70-105)
[2018-07-05] MEDS: LEVEMIR (INSULIN DETEMIR) 1 UNITS/0.01ML SC ×2 (08:44→20:56)
[2018-07-05] MEDS: ADVAIR HFA 115/21MCG INHALER INH ×2 (08:44→20:56)
[2018-07-05] MEDS: ASPIRIN 81 MG ENTERIC TAB PO (08:44)
[2018-07-05] MEDS: FUROSEMIDE 20 MG TAB PO ×2 (08:44→16:15)
[2018-07-05] MEDS: DIVALPROEX 250MG *ER* TAB PO ×2 (08:44→20:55)
[2018-07-05] MEDS: risperiDONE 2 MG TAB PO ×3 (08:44→20:54)
[2018-07-05] MEDS: PANTOPRAZOLE 40MG TAB (PROTONIX) PO (08:44)
[2018-07-05] MEDS: LISINOPRIL 20 MG TAB PO (08:45)
[2018-07-05] MEDS: BENZTROPINE 1 MG TAB PO ×2 (08:45→20:55)
[2018-07-05] MEDS: CLOPIDOGREL 75 MG TAB PO (08:45)
[2018-07-05] MEDS: BRINZOLAMIDE 1 % OPHTH SUSP (AZOPT) 10ML OS ×3 (08:45→20:56)
[2018-07-05] MEDS: clonazePAM 0.5 MG TAB PO ×2 (08:45→20:54)
[2018-07-05] MEDS: BRIMONIDINE 0.15% OPHTH SOLN 5 ML OS ×2 (08:46→20:56)
[2018-07-05 12:29] LABS: BEDSIDE GLUCOSE 191 MG/DL (70-105)
[2018-07-05] MEDS: IBUPROFEN 400 MG TAB PO (14:53)
[2018-07-05 17:17] LABS: BEDSIDE GLUCOSE 111 MG/DL (70-105)
[2018-07-05] MEDS: QUEtiapine FUMARATE 50 MG TAB PO (20:54)
[2018-07-05] MEDS: OLANZapine ORAL DISINTEGRATING TAB 5MG PO (20:54)
[2018-07-05] MEDS: rOPINIRole 0.25 MG TAB(REQUIP) PO (20:54)
[2018-07-05] MEDS: LATANOPROST 0.005% OPHTH SOLN 2.5 ML OU (20:56)
[2018-07-05 23:06] LABS: BEDSIDE GLUCOSE 207 MG/DL (70-105)
[2018-07-06] MEDS: IBUPROFEN 400 MG TAB PO (01:05)
[2018-07-06] MEDS: LEVOTHYROXINE 25MCG TABLET (0.025MG) PO (06:24)
[2018-07-06 06:35] LABS: BEDSIDE GLUCOSE 124 MG/DL (70-105)
[2018-07-06] MEDS: HumaLOG INSULIN (NovoLOG) PER UNIT SC ×2 (06:38→12:26)
[2018-07-06] MEDS: LEVEMIR (INSULIN DETEMIR) 1 UNITS/0.01ML SC (08:36)
[2018-07-06] MEDS: ADVAIR HFA 115/21MCG INHALER INH (08:37)
[2018-07-06] MEDS: BRINZOLAMIDE 1 % OPHTH SUSP (AZOPT) 10ML OS (08:37)
[2018-07-06] MEDS: BRIMONIDINE 0.15% OPHTH SOLN 5 ML OS (08:37)
[2018-07-06] MEDS: clonazePAM 0.5 MG TAB PO (08:39)
[2018-07-06] MEDS: CLOPIDOGREL 75 MG TAB PO (08:39)
[2018-07-06] MEDS: PANTOPRAZOLE 40MG TAB (PROTONIX) PO (08:40)
[2018-07-06] MEDS: risperiDONE 2 MG TAB PO (08:40)
[2018-07-06] MEDS: BENZTROPINE 1 MG TAB PO (08:40)
[2018-07-06] MEDS: FUROSEMIDE 20 MG TAB PO (08:40)
[2018-07-06] MEDS: ASPIRIN 81 MG ENTERIC TAB PO (08:40)
[2018-07-06] MEDS: LISINOPRIL 20 MG TAB PO (08:41)
[2018-07-06] MEDS: DIVALPROEX 250MG *ER* TAB PO (08:41)
[2018-07-06 11:48] LABS: BEDSIDE GLUCOSE 115 MG/DL (70-105)
[2018-07-06] MEDS: OLANZapine ORAL DISINTEGRATING TAB 5MG PO (12:26)
[2018-07-06] MEDS: QUEtiapine FUMARATE 50 MG TAB PO (13:48)
== END 2018-07-06 15:00 | DRG 750 ==
LOC: M PSY 06-27 15:16 → M ED 11:50 → M ED INP 16:40 → M PSY 20:40
DX: F25.0 Schizoaffective disorder, bipolar type (principal); G20 Parkinson's disease; J44.9 Chronic obstructive pulmonary disease, unspecified; E11.9 Type 2 diabetes mellitus without complications; N39.0 Urinary tract infection, site not specified; I10 Essential (primary) hypertension; E03.9 Hypothyroidism, unspecified; E78.00 Pure hypercholesterolemia, unspecified; D72.829 Elevated white blood cell count, unspecified; H40.9 Unspecified glaucoma; Z79.899 Other long term (current) drug therapy; Z86.73 Personal history of transient ischemic attack (TIA), and cerebral infarction without residual deficits; K21.9 Gastro-esophageal reflux disease without esophagitis; E66.9 Obesity, unspecified; Z68.36 Body mass index [BMI] 36.0-36.9, adult; Z79.82 Long term (current) use of aspirin; Z79.4 Long term (current) use of insulin; Z88.2 Allergy status to sulfonamides; Z88.8 Allergy status to other drugs, medicaments and biological substances

== ENCOUNTER 2018-11-14 15:29 | Inpatient (IN) | payer BC, OTHER, MEDICAID ==
[~2018-11-14] VITALS: Ht 154.9 cm; Wt 85.6 kg
[~2018-11-14 15:29] MED LIST: ABIL1TAB11 PO; ADV250INH INH; ADVA1AER2; ADVA1AER2 IN; ALBU17IN2 INH; ALLE25CA; AMAR1TAB6 OR; AMBI10TA OR; ASPI1TAB15 PO; ASPI81TA60 PO; ATIV1TAB7 PO; AVEL1TAB3 PO; AZOP0.2S OU; BABY81CH; BENA20TA PO; BENI20TA11; BENZ-52 PO; BENZ0.5T PO; BRIM2OPD OS; BRIM2OPD OU; BRIN1OPH OS; BUDE150T OR; CEFD1CAP8 PO; CLOP75TA2 PO; COGE1INJ OR; COGENTIN PO; DEPA1TAB3 PO; DEPA250T2 PO; DEPA500T2 PO; DEPAKOTE PO; DIVA500T9; DIVA500T9 PO; DIVALPROEX DR; FISH500C PO; FURO20TA2 PO; GLIP5TAB8 PO; GLUC1000 PO; HALDOL PO; HALO10TA4; HALO1TAB21 OR; HALO5TA PO; HCTZ PO; HYDR12CA PO; INSUDET SC; INVE1.75 SQ; INVE234I IM; JANU100T PO; KLON0.5T PO; LAMI1TAB7; LAMI25TA PO; LAMO100T80 PO; LATA0.0013 OS; LEVO25TA5 PO; LEVO25TABR OR; LEVO50TA5 PO; LEVOTAB10 PO; LISI-538 PO; LOTRCRE TOP; MACR100C43 PO; METF10004 PO; MOME50SP; MOTRIN PO; NEXI1CAP3 OR; NOVOLOG SC; NOVOLOG100 MG/ML SC; NYAM10003 TOP; NYST1POW9 TOP; NYST5000 PO; OMEP20CA3 PO; PLAV1TAB2 PO; PROAAER10 INH; PROT1TAB2 PO; QUET30TA OR; QUET5TAB PO; REQU0.5T PO; RISP0.5T21 PO; RISP0.5T3 PO; RISP3TAB16; ROPI0.5T PO; SERO1TAB2 PO; SERO200T43 PO; SERO400T OR; SERO400T4 PO; SEROQ; SIMV40TA2 OR; SYNT25TA PO; TRAZ100T; WELCHOL; WELCHOL PO; WELL100T2 OR; XALA0.007 OU; ZYPR5TAB2 PO; ZYPR5TAB31 PO; [UNRECOGNIZED DRUG - CODE]; benzapril PO
[2018-11-14] MEDS ORDERED: LABETALOL HCL 100 MG/20 ML VIAL IV STA (15:54)
[2018-11-14 16:19] LABS: BASO # 0.1 10^3/uL (0.0-0.2); BASO % 0.4 % (0.0-1.0); EOS # 0.4 10^3/uL (0.0-0.50); EOS % 3.1 % (0.0-3.0); HEMATOCRIT 35.7 % (36.0-47.0); HEMOGLOBIN 11.9 g/dl (12.0-15.5); LYMPH # 3.2 10^3/uL (1.5-4.5); LYMPH % 28.7 % (24.0-44.0); MEAN CORPUSCULAR HEMOGLOBIN 29.1 pg (27.0-33.0); MEAN CORPUSCULAR HGB CONC 33.3 g/dl (32.0-36.5); MEAN CORPUSCULAR VOLUME 87.3 fl (80.0-96.0); MONO # 0.9 10^3/uL (0.0-0.8); MONO % 7.6 % (0.0-5.0); NEUTROPHILS # 6.7 10^3/uL (1.8-7.7); NEUTROPHILS % 59.3 % (36.0-66.0); PLATELET COUNT, AUTOMATED 212 10^3/uL (150-450); RED BLOOD COUNT 4.09 10^6/uL (4.00-5.40); WHITE BLOOD COUNT 11.3 10^3/uL (4.0-10.0)
[2018-11-14 16:30] LABS: INR 0.9; PROTHROMBIN TIME 12.2 SECONDS (12.1-14.4)
[2018-11-14 16:31] LABS: PARTIAL THROMBOPLASTIN TIME 25.6 SECONDS (25.4-37.6)
[2018-11-14 16:51] LABS: ALBUMIN 3.2 GM/DL (3.2-5.2); ALT/SGPT 24 U/L (12-78); BILIRUBIN,DIRECT < 0.1 MG/DL (0.0-0.2); BILIRUBIN,TOTAL 0.2 MG/DL (0.2-1.0); BLOOD UREA NITROGEN 15 MG/DL (7-18); CALCIUM LEVEL 8.6 MG/DL (8.5-10.1); CARBON DIOXIDE LEVEL 29 MEQ/L (21-32); CHLORIDE LEVEL 101 MEQ/L (98-107); CPK CREATINE PHOSPHOKINASE 126 U/L (26-192); CREATININE FOR GFR 0.56 MG/DL (0.55-1.30); FREE T4 0.94 NG/DL (0.76-1.46); GLOMERULAR FILTRATION RATE > 60.0 (>51); GLUCOSE, FASTING 171 MG/DL (70-100); MB/CK RELATIVE INDEX 2.78 (< OR =4); POTASSIUM SERUM 4.2 MEQ/L (3.5-5.1); SODIUM LEVEL 138 MEQ/L (136-145); TROPONIN I < 0.02 NG/ML (< 0.10)
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
[2018-11-14] MEDS ORDERED: hydrALAZINE INJ 20 MG/ML VIAL IV STA (17:03)
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
[2018-11-14 17:38] LABS: VALPROIC ACID (DEPAKOTE) 38.4 UG/ML (50.0-100.0)
[2018-11-14] MEDS ORDERED: BENZ-52 PO (17:51)
[2018-11-14] MEDS ORDERED: DEPA1TAB3 PO ×2 (17:51)
[2018-11-14] MEDS ORDERED: ARIP1TAB10 PO (17:51)
[2018-11-14] MEDS ORDERED: FURO40TA2 PO (17:52)
[2018-11-14] MEDS ORDERED: ROPI1TAB PO (17:55)
[2018-11-14] MEDS ORDERED: VITA2000 PO (17:56)
[2018-11-14] MEDS ORDERED: IPRATROPIUM 0.5MG/ALBUTEROL 2.5MG INH SOL UD 3ML (DUONEB)(J7620) NEB PRN (18:00)
[2018-11-14] MEDS ORDERED: DEXTROSE 50% 50 ML SYRINGE IV PRN (18:00)
[2018-11-14] MEDS ORDERED: GLUCAGON FOR INJ 1 MG VIAL (J1610) SC PRN (18:00)
[2018-11-14] MEDS ORDERED: GLUCOSE 4 GM CHEW TABLET PO PRN (18:00)
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
[2018-11-14] MEDS ORDERED: QUEtiapine FUMARATE 50 MG TAB PO PRN (18:15)
[2018-11-14] MEDS: HumaLOG INSULIN (NovoLOG) PER UNIT SC SCH ×3 (18:36→22:00)
[2018-11-14] MEDS: DIVALPROEX 500 MG TAB PO SCH (18:43)
[2018-11-14] MEDS: hydrALAZINE INJ 20 MG/ML VIAL IV SCH ×2 (18:45→21:15)
[2018-11-14] MEDS: clonazePAM 0.5 MG TAB PO SCH (20:54)
[2018-11-14 21:40] VITALS: BP 179/97
--- NOTE | 2018-11-14 22:12 | ECGEPIP ---
Stationary ECG Study [facility] - ED Test Date: 2018-11-14 Pat Name: ERNESTO ROTHMAN Department: Room: - Gender: F Projection Printer: jeremy : [id number] Requested By: HORACIO Blas Order Number: [id number] Reading MD: Sly Charles Measurements Intervals [place] Rate: 61 P: 34 DC: 166 QRS: 33 QRSD: 86 T: 30 QT: 401 QTc: 404 Interpretive Statements SINUS RHYTHM POOR R WAVE PROGRESSION BENIGN EARLY REPOLARIZATION SIMILAR TO 06/21/18 Electronically Signed On 11-14-2018 22:11:49 EDT by Sly Charles
[2018-11-14 23:30] VITALS: BP 158/76
[2018-11-15] MEDS: rOPINIRole 1MG TAB PO SCH ×2 (00:01→21:48)
[2018-11-15] MEDS: ADVAIR HFA 115/21MCG INHALER INH SCH ×3 (00:12→20:16)
[2018-11-15] MEDS: hydrALAZINE INJ 20 MG/ML VIAL IV SCH ×6 (01:15→21:15)
[2018-11-15 03:28] VITALS: BP 152/88
[2018-11-15 03:55] LABS: HEMATOCRIT 36.8 % (36.0-47.0); HEMOGLOBIN 11.9 g/dl (12.0-15.5); MEAN CORPUSCULAR HEMOGLOBIN 28.9 pg (27.0-33.0); MEAN CORPUSCULAR HGB CONC 32.3 g/dl (32.0-36.5); MEAN CORPUSCULAR VOLUME 89.3 fl (80.0-96.0); PLATELET COUNT, AUTOMATED 166 10^3/uL (150-450); RED BLOOD COUNT 4.12 10^6/uL (4.00-5.40); WHITE BLOOD COUNT 10.9 10^3/uL (4.0-10.0)
[2018-11-15 04:32] LABS: ALT/SGPT 24 U/L (12-78); BILIRUBIN,TOTAL 0.3 MG/DL (0.2-1.0); BLOOD UREA NITROGEN 11 MG/DL (7-18); CALCIUM LEVEL 8.9 MG/DL (8.5-10.1); CARBON DIOXIDE LEVEL 27 MEQ/L (21-32); CHLORIDE LEVEL 107 MEQ/L (98-107); CREATININE FOR GFR 0.55 MG/DL (0.55-1.30); GLOMERULAR FILTRATION RATE > 60.0 (>51); GLUCOSE, FASTING 192 MG/DL (70-100); MAGNESIUM LEVEL 1.7 MG/DL (1.8-2.4); POTASSIUM SERUM 4.4 MEQ/L (3.5-5.1); SODIUM LEVEL 139 MEQ/L (136-145); TOTAL PROTEIN 6.6 GM/DL (6.4-8.2)
[2018-11-15] MEDS: LEVOTHYROXINE 25MCG TABLET (0.025MG) PO SCH (05:37)
[2018-11-15 07:08] VITALS: BP 166/80
[2018-11-15] MEDS: ASPIRIN 81 MG ENTERIC TAB PO SCH (08:37)
[2018-11-15] MEDS: LEVEMIR (INSULIN DETEMIR) 1 UNITS/0.01ML SC SCH ×3 (08:37→21:19)
[2018-11-15] MEDS: HumaLOG INSULIN (NovoLOG) PER UNIT SC SCH ×4 (08:37→21:00)
[2018-11-15] MEDS: DIVALPROEX 500 MG TAB PO SCH ×2 (08:37→18:30)
[2018-11-15] MEDS: PANTOPRAZOLE 40MG TAB (PROTONIX) PO SCH (08:38)
[2018-11-15] MEDS: VITAMIN D 1,000 INTERNATIONAL UNITS TABLET PO SCH (08:38)
[2018-11-15] MEDS: clonazePAM 0.5 MG TAB PO SCH ×3 (08:38→21:19)
[2018-11-15] MEDS: CLOPIDOGREL 75 MG TAB PO SCH (08:38)
[2018-11-15] MEDS: FUROSEMIDE 40 MG TAB PO SCH (08:38)
[2018-11-15] MEDS: amLODIPine 5 MG TAB PO SCH (08:38)
[2018-11-15] MEDS: LISINOPRIL 20 MG TAB PO SCH (08:38)
[2018-11-15] MEDS: ARIPiprazole 15 MG TAB (AbiLIFY) PO SCH (08:38)
--- NOTE | 2018-11-15 10:46 | IPNPDOC ---
Subjective Date Seen The patient was seen on 11/15/18. Subjective Chief Complaint/HPI Offers no new complaints, sister at the bedside General: Reports: Fatigue; Denies: ROS Unobtainable, Chills, Night Sweats, Malaise, Normal Appetite, Other Symptoms Constitutional: Denies: Chills, Fever, Malaise, Night Sweats, Weakness, Fatigue, Weight Loss, Lethargy, Other Eyes: Denies: Pain, Vision change, Conjunctivae inflammation, Eyelid inflammation, Redness, Other ENT: Denies: Head Aches, Ear Pain, Dysphagia, Sinus Congestion, Post Nasal Drip, Sore Throat, Epistaxis, Other Symptoms Skin: Denies: Rash, Lesions, Jaundice, Bruising, Itching, Dry, Breakdown, Nail Changes, Other Pulmonary: Denies: Dyspnea, Cough, Pleuritic Chest Pain, Other Symptoms Cardiovascular: Denies: Chest Pain, Palpitations, Orthopnea, Paroxysmal Noc. Dyspnea, Edema, Lt Headedness, Other Symptoms Gastrointestinal: Denies: Nausea, Vomiting, Abdominal Pain, Diarrhea, Constipation, Melena, Hematochezia, Other Symptoms Hematologic: Denies: Bruising, Bleeding Excessively, Petecchia, Purpura, Enlarged Lymph Nodes, Other Hematologic Endocrine: Denies: Polydipsia, Polyphagia, Polyuria, Heat Intolerance, Cold Intolerance, Other Endocrine Sx Musculoskeletal: Denies: Neck Pain, Back Pain, Shoulder Pain, Arm Pain, Hand Pain, Leg Pain, Foot Pain, Joint Pain, Muscle Pain, Spasms, Other Symptoms Neurological: Reports: Other Symptoms (dizziness) Psych: Denies: Mood Normal, Anxiety, Depression, Memory Issues, Thoughts of Self Harm, Anger, Thoughts of Harming Other, Other Psych Objective Physical Examination General Exam: Positive: Alert, Cooperative, No Acute Distress Eye Exam: Positive: PERRLA, EOMI; Negative: Ptosis ENT Exam: Positive: Atraumatic, Mucous membr. moist/pink Neck Exam: Negative: JVD Chest Exam: Positive: Clear to auscultation, Normal air movement Heart Exam: Positive: Rate Normal, Normal S1, Normal S2 Abdomen Exam: Positive: Soft; Negative: Tenderness Extremity Exam: Negative: Tenderness, Swelling Neuro Exam: Positive: Normal Speech, Strength at 5/5 X4 ext, Normal Tone, Sensation Intact, Cranial Nerves 3-12 NL Psych Exam: Positive: Oriented x 3 A-FIB/CHADSVASC A-FIB History Current/History of A-Fib/PAF?: No Assessment /Plan Problems (1) Hypertensive urgency Status: Acute Response to Treatment: Improving Discussed With: Patient, Health Care Proxy Problem Text: Patient. Blood pressure right now is systolic 160 Related Norvasc 5 mg by mouth daily PT, OT evaluation called Complaints. Counseling done in and sister was present during the counseling in the room Continue home medications Possible DC once the rehabilitation has been arranged (2) Hypomagnesemia Status: Acute Response to Treatment: Stable Discussed With: Patient Problem Text: Magnesium oxide 400 mg by mouth twice a day Plan/VTE VTE Prophylaxis Ordered?: Yes VS, I&O, 24H, Fishbone Vital Signs/I&O Vital Signs Date Time Temp Pulse Resp B/P (MAP) Pulse Ox O2 Delivery O2 Flow Rate FiO2 11/15/18 09:16 166/80 11/15/18 08:38 90 11/15/18 07:08 97.9 18 93 11/14/18 21:20 Room Air I&O- Last 24 Hours up to 6 AM 11/15/18 06:00 Intake Total 300 ml Output Total 2225 ml Balance -1925 ml Laboratory Data 24H LABS Laboratory Tests 2 11/14/18 16:07: Immature Granulocyte % (Auto) 0.9, White Blood Count 11.3H, Red Blood Count 4.0 9, Hemoglobin 11.9L, Hematocrit 35.7L, Mean Corpuscular Volume 87.3, Mean Corpuscular Hemoglobin 29.1, Mean Corpuscular Hemoglobin Concent 33.3, Red Cell Distribution Width 14.3, Platelet Count 212, Neutrophils (%) (Auto) 59.3, Lymphocytes (%) (Auto) 28.7, Monocytes (%) (Auto) 7.6H, Eosinophils (%) (Auto) 3.1H, Basophils (%) (Auto) 0.4, Neutrophils # (Auto) 6.7, Lymphocytes # (Auto) 3.2, Monocytes # (Auto) 0.9H, Eosinophils # (Auto) 0.4, Basophils # (Auto) 0.1, Nucleated Red Blood Cells % (auto) 0.0, Prothrombin Time 12.2, Prothromb Time International Ratio 0.90, Activated Partial Thromboplast Time 25.6, Anion Gap 8, Glomerular Filtration Rate > 60.0, Calcium Level 8.6, Aspartate Amino Transf (AST/SGOT) 19, Alanine Aminotransferase (ALT/SGPT) 24, Alkaline Phosphatase 77, Total Bilirubin 0.2, Direct Bilirubin < 0.1, Total Creatine Kinase 126, Creatine Kinase MB 4.0H, Creatine Kinase MB Relative Index 2.78, Troponin I < 0.02, Total Protein 7.0, Albumin 3.2, Albumin/Globulin Ratio 0.84L, Thyroid Stimulating Hormone (TSH) 1.940, Free Thyroxine 0.94, Valproic Acid (Depakene) Level 38.4L 11/14/18 18:39: Bedside Glucose (Misc Panel) 172H 11/14/18 22:04: Bedside Glucose (Misc Panel) 219H 11/15/18 03:26: Nucleated Red Blood Cells % (auto) 0.0, Anion Gap 5L, Glomerular Filtration Rate > 60.0, Calcium Level 8.9, Aspartate Amino Transf (AST/SGOT) 37, Alanine Aminotransferase (ALT/SGPT) 24, Alkaline Phosphatase 68, Total Bilirubin 0.3, Total Protein 6.6, Albumin 3.0L, Albumin/Globulin Ratio 0.83L, Blood Urea Nitrogen 11, Creatinine 0.55, Sodium Level 139, Potassium Level 4.4, Chloride Level 107, Carbon Dioxide Level 27, Magnesium Level 1.7L CBC/BMP Laboratory Tests 11/14/18 16:07 Red Blood Count 4.09, Mean Corpuscular Volume 87.3, Mean Corpuscular Hemoglobin 29.1, Mean Corpuscular Hemoglobin Concent 33.3, Red Cell Distribution Width 14.3, Neutrophils (%) (Auto) 59.3, Lymphocytes (%) (Auto) 28.7, Monocytes (%) (Auto) 7.6 H, Eosinophils (%) (Auto) 3.1 H, Basophils (%) (Auto) 0.4, Neutrophils # (Auto) 6.7, Lymphocytes # (Auto) 3.2, Monocytes # (Auto) 0.9 H, Eosinophils # (Auto) 0.4, Basophils # (Auto) 0.1 11/15/18 03:26 Red Blood Count 4.12, Mean Corpuscular Volume 89.3, Mean Corpuscular Hemoglobin 28.9, Mean Corpuscular Hemoglobin Concent 32.3, Red Cell Distribution Width 14.7 H, Calcium Level 8.9, Aspartate Amino Transf (AST/SGOT) 37, Alanine Aminotransferase (ALT/SGPT) 24, Alkaline Phosphatase 68, Total Bilirubin 0.3, Total Protein 6.6, Albumin 3.0 L ELIZABETH LAGUERRE MD November 15, 2018 10:46
[2018-11-15 12:00] VITALS: BP 132/84
[2018-11-15] MEDS: MAGNESIUM OXIDE 400 MG TAB (MAG-OX) PO SCH ×2 (12:11→21:20)
[2018-11-15 16:00] VITALS: BP 148/88
[2018-11-15 19:19] VITALS: BP 124/72
[2018-11-15 23:33] VITALS: BP 162/110
[2018-11-16] MEDS: hydrALAZINE INJ 20 MG/ML VIAL IV SCH ×4 (01:15→13:00)
[2018-11-16 03:58] VITALS: BP 132/79
[2018-11-16] MEDS: LEVOTHYROXINE 25MCG TABLET (0.025MG) PO SCH (05:39)
[2018-11-16] MEDS: ADVAIR HFA 115/21MCG INHALER INH SCH ×2 (07:56→20:37)
[2018-11-16 08:00] VITALS: BP 125/60
[2018-11-16] MEDS: HumaLOG INSULIN (NovoLOG) PER UNIT SC SCH ×4 (08:53→20:43)
[2018-11-16] MEDS: VITAMIN D 1,000 INTERNATIONAL UNITS TABLET PO SCH (08:54)
[2018-11-16] MEDS: LEVEMIR (INSULIN DETEMIR) 1 UNITS/0.01ML SC SCH ×2 (08:54→20:47)
[2018-11-16] MEDS: clonazePAM 0.5 MG TAB PO SCH ×3 (08:54→20:47)
[2018-11-16] MEDS: DIVALPROEX 500 MG TAB PO SCH ×2 (08:55→16:53)
[2018-11-16] MEDS: MAGNESIUM OXIDE 400 MG TAB (MAG-OX) PO SCH ×2 (08:55→20:47)
[2018-11-16] MEDS: amLODIPine 5 MG TAB PO SCH (08:55)
[2018-11-16] MEDS: PANTOPRAZOLE 40MG TAB (PROTONIX) PO SCH (08:55)
[2018-11-16] MEDS: CLOPIDOGREL 75 MG TAB PO SCH (08:55)
[2018-11-16] MEDS: ASPIRIN 81 MG ENTERIC TAB PO SCH (08:55)
[2018-11-16] MEDS: ARIPiprazole 15 MG TAB (AbiLIFY) PO SCH (08:56)
[2018-11-16] MEDS: FUROSEMIDE 40 MG TAB PO SCH (08:56)
[2018-11-16] MEDS: LISINOPRIL 20 MG TAB PO SCH (08:56)
--- NOTE | 2018-11-16 11:27 | IPNPDOC ---
Subjective Date Seen The patient was seen on 11/16/18. Subjective Chief Complaint/HPI Patient unable to care for self. Patient is a sister who is her healthcare proxy is requesting subacute rehabilitation facility General: Denies: ROS Unobtainable, Chills, Night Sweats, Fatigue, Malaise, Normal Appetite, Other Symptoms Constitutional: Denies: Chills, Fever, Malaise, Night Sweats, Weakness, Fatigue , Weight Loss, Lethargy, Other Eyes: Denies: Pain, Vision change, Conjunctivae inflammation, Eyelid inflam mation, Redness, Other ENT: Denies: Head Aches, Ear Pain, Dysphagia, Sinus Congestion, Post Nasal Drip, Sore Throat, Epistaxis, Other Symptoms Skin: Denies: Rash, Lesions, Jaundice, Bruising, Itching, Dry, Breakdown, Nail Changes, Other Pulmonary: Denies: Dyspnea, Cough, Pleuritic Chest Pain, Other Symptoms Cardiovascular: Denies: Chest Pain, Palpitations, Orthopnea, Paroxysmal Noc. Dyspnea, Edema, Lt Headedness, Other Symptoms Gastrointestinal: Denies: Nausea, Vomiting, Abdominal Pain, Diarrhea, Constipation, Melena, Hematochezia, Other Symptoms Genitourinary: Denies: Dysuria, Frequency, Incontinence, Hematuria, Retention, Other Symptoms Hematologic: Denies: Bruising, Bleeding Excessively, Petecchia, Purpura, Enlarged Lymph Nodes, Other Hematologic Endocrine: Denies: Polydipsia, Polyphagia, Polyuria, Heat Intolerance, Cold Intolerance, Other Endocrine Sx Musculoskeletal: Denies: Neck Pain, Back Pain, Shoulder Pain, Arm Pain, Hand Pain, Leg Pain, Foot Pain, Joint Pain, Muscle Pain, Spasms, Other Symptoms Neurological: Denies: Weakness, Numbness, Incoordination, Change in speech, Confusion, Seizures, Other Symptoms Psych: Denies: Mood Normal, Anxiety, Depression, Memory Issues, Thoughts of Self Harm, Anger, Thoughts of Harming Other, Other Psych Objective Physical Examination General Exam: Positive: Alert, Cooperative, No Acute Distress Eye Exam: Positive: PERRLA, EOMI; Negative: Ptosis ENT Exam: Positive: Atraumatic, Mucous membr. moist/pink Neck Exam: Negative: JVD Chest Exam: Positive: Clear to auscultation, Normal air movement Heart Exam: Positive: Rate Normal, Normal S1, Normal S2 Abdomen Exam: Positive: Soft; Negative: Tenderness Extremity Exam: Negative: Tenderness, Swelling Neuro Exam: Positive: Normal Speech, Strength at 5/5 X4 ext, Normal Tone, Sensation Intact, Cranial Nerves 3-12 NL Psych Exam: Positive: Oriented x 3 A-FIB/CHADSVASC A-FIB History Current/History of A-Fib/PAF?: No Assessment /Plan Problems (1) Hypertensive urgency Status: Resolved Response to Treatment: Controlled Discussed With: Patient, Health Care Proxy Problem Text: Patient. Blood pressure right now is systolic 160 Related Norvasc 5 mg by mouth daily PT, OT evaluation called: Awaiting recommendations Complaints. Counseling done in and sister was present during the counseling in the room Continue home medications Possible DC once the rehabilitation has been arranged (2) Hypomagnesemia Status: Resolved Response to Treatment: Improving Discussed With: Patient Problem Text: Magnesium oxide 400 mg by mouth twice a day Plan/VTE VTE Prophylaxis Ordered?: Yes VS, I&O, 24H, Fishbone Vital Signs/I&O Vital Signs Date Time Temp Pulse Resp B/P (MAP) Pulse Ox O2 Delivery O2 Flow Rate FiO2 11/16/18 08:56 125/60 11/16/18 08:55 72 11/16/18 08:00 98.9 18 93 11/14/18 21:20 Room Air I&O- Last 24 Hours up to 6 AM 11/16/18 06:00 Intake Total 2170 ml Output Total 2750 ml Balance -580 ml Laboratory Data 24H LABS Laboratory Tests 2 11/15/18 11:54: Bedside Glucose (Misc Panel) 185H 11/15/18 17:09: Bedside Glucose (Misc Panel) 177H 11/15/18 20:16: Bedside Glucose (Misc Panel) 204H 11/16/18 07:35: Bedside Glucose (Misc Panel) 161ELIZABETH YEPEZ MD November 16, 2018 11:27
[2018-11-16 13:00] VITALS: BP 130/70
[2018-11-16 16:00] VITALS: BP 122/65
[2018-11-16] MEDS: rOPINIRole 1MG TAB PO SCH (20:47)
[2018-11-16 22:00] VITALS: BP 141/66
[2018-11-17] MEDS: LEVOTHYROXINE 25MCG TABLET (0.025MG) PO SCH (05:26)
[2018-11-17 06:00] VITALS: BP 112/65
[2018-11-17] MEDS: ADVAIR HFA 115/21MCG INHALER INH SCH ×2 (08:00→20:39)
[2018-11-17] MEDS: LEVEMIR (INSULIN DETEMIR) 1 UNITS/0.01ML SC SCH ×2 (08:04→21:07)
[2018-11-17] MEDS: DIVALPROEX 500 MG TAB PO SCH ×2 (08:04→16:28)
[2018-11-17] MEDS: HumaLOG INSULIN (NovoLOG) PER UNIT SC SCH ×4 (08:04→21:00)
[2018-11-17] MEDS: LISINOPRIL 20 MG TAB PO SCH (08:05)
[2018-11-17] MEDS: ASPIRIN 81 MG ENTERIC TAB PO SCH (08:05)
[2018-11-17] MEDS: FUROSEMIDE 40 MG TAB PO SCH (08:05)
[2018-11-17] MEDS: clonazePAM 0.5 MG TAB PO SCH ×3 (08:05→21:06)
[2018-11-17] MEDS: amLODIPine 5 MG TAB PO SCH (08:05)
[2018-11-17] MEDS: ARIPiprazole 15 MG TAB (AbiLIFY) PO SCH (08:06)
[2018-11-17] MEDS: VITAMIN D 1,000 INTERNATIONAL UNITS TABLET PO SCH (08:06)
[2018-11-17] MEDS: MAGNESIUM OXIDE 400 MG TAB (MAG-OX) PO SCH ×2 (08:06→21:06)
[2018-11-17] MEDS: PANTOPRAZOLE 40MG TAB (PROTONIX) PO SCH (08:06)
[2018-11-17] MEDS: CLOPIDOGREL 75 MG TAB PO SCH (08:06)
--- NOTE | 2018-11-17 13:52 | IPNPDOC ---
Subjective Date Seen The patient was seen on 11/17/18. Subjective Chief Complaint/HPI Patient comfortable and offered no new complaints awaiting placement in a rehabilitation facility General: Denies: ROS Unobtainable, Chills, Night Sweats, Fatigue, Malaise, Normal Appetite, Other Symptoms Constitutional: Denies: Chills, Fever, Malaise, Night Sweats, Weakness, Fatigue, Weight Loss, Lethargy, Other Eyes: Denies: Pain, Vision change, Conjunctivae inflammation, Eyelid inflammation, Redness, Other ENT: Denies: Head Aches, Ear Pain, Dysphagia, Sinus Congestion, Post Nasal Drip, Sore Throat, Epistaxis, Other Symptoms Skin: Denies: Rash, Lesions, Jaundice, Bruising, Itching, Dry, Breakdown, Nail Changes, Other Pulmonary: Denies: Dyspnea, Cough, Pleuritic Chest Pain, Other Symptoms Cardiovascular: Denies: Chest Pain, Palpitations, Orthopnea, Paroxysmal Noc. Dyspnea, Edema, Lt Headedness, Other Symptoms Gastrointestinal: Denies: Nausea, Vomiting, Abdominal Pain, Diarrhea, Constipation, Melena, Hematochezia, Other Symptoms Genitourinary: Denies: Dysuria, Frequency, Incontinence, Hematuria, Retention, Other Symptoms Hematologic: Denies: Bruising, Bleeding Excessively, Petecchia, Purpura, Enlarged Lymph Nodes, Other Hematologic Endocrine: Denies: Polydipsia, Polyphagia, Polyuria, Heat Intolerance, Cold Intolerance, Other Endocrine Sx Musculoskeletal: Denies: Neck Pain, Back Pain, Shoulder Pain, Arm Pain, Hand Pain, Leg Pain, Foot Pain, Joint Pain, Muscle Pain, Spasms, Other Symptoms Neurological: Denies: Weakness, Numbness, Incoordination, Change in speech, Confusion, Seizures, Other Symptoms Psych: Denies: Mood Normal, Anxiety, Depression, Memory Issues, Thoughts of Self Harm, Anger, Thoughts of Harming Other, Other Psych Objective Physical Examination General Exam: Positive: Alert, Cooperative, No Acute Distress Eye Exam: Positive: PERRLA, EOMI; Negative: Ptosis ENT Exam: Positive: Atraumatic, Mucous membr. moist/pink Neck Exam: Negative: JVD Chest Exam: Positive: Clear to auscultation, Normal air movement Heart Exam: Positive: Rate Normal, Normal S1, Normal S2 Abdomen Exam: Positive: Soft; Negative: Tenderness Extremity Exam: Negative: Tenderness, Swelling Neuro Exam: Positive: Normal Speech, Strength at 5/5 X4 ext, Normal Tone, Sensation Intact, Cranial Nerves 3-12 NL Psych Exam: Positive: Oriented x 3 A-FIB/CHADSVASC A-FIB History Current/History of A-Fib/PAF?: No Assessment /Plan Problems (1) Hypertensive urgency Status: Resolved Response to Treatment: Controlled Discussed With: Patient, Health Care Proxy Problem Text: Patient. Blood pressure right now is 113/70 Related Norvasc 5 mg by mouth daily PT, OT evaluation called Complaints. Counseling done in and sister was present during the counseling in the room Continue home medications Possible DC once the rehabilitation has been arranged (2) Hypomagnesemia Status: Resolved Response to Treatment: Improving Discussed With: Patient Problem Text: Magnesium oxide 400 mg by mouth twice a day Plan/VTE VTE Prophylaxis Ordered?: Yes VS, I&O, 24H, Fishbone Vital Signs/I&O Vital Signs Date Time Temp Pulse Resp B/P (MAP) Pulse Ox O2 Delivery O2 Flow Rate FiO2 11/17/18 08:05 82 116/69 11/17/18 06:00 97.9 16 93 11/14/18 21:20 Room Air I&O- Last 24 Hours up to 6 AM 11/17/18 06:00 Intake Total 660 ml Output Total 250 ml Balance 410 ml Laboratory Data 24H LABS Laboratory Tests 2 11/16/18 17:01: Bedside Glucose (Misc Panel) 184H 11/16/18 20:34: Bedside Glucose (Misc Panel) 160H ELIZABETH LAGUERRE MD November 17, 2018 13:52
[2018-11-17 14:00] VITALS: BP 97/56
[2018-11-17] MEDS: rOPINIRole 1MG TAB PO SCH (21:06)
[2018-11-17 22:00] VITALS: BP 103/57
[2018-11-18] MEDS: LEVOTHYROXINE 25MCG TABLET (0.025MG) PO SCH (05:25)
[2018-11-18 06:00] VITALS: BP 133/70
[2018-11-18] MEDS: ADVAIR HFA 115/21MCG INHALER INH SCH ×2 (07:23→20:11)
[2018-11-18] MEDS: VITAMIN D 1,000 INTERNATIONAL UNITS TABLET PO SCH (08:50)
[2018-11-18] MEDS: ARIPiprazole 15 MG TAB (AbiLIFY) PO SCH (08:51)
[2018-11-18] MEDS: CLOPIDOGREL 75 MG TAB PO SCH (08:51)
[2018-11-18] MEDS: clonazePAM 0.5 MG TAB PO SCH ×3 (08:51→20:31)
[2018-11-18] MEDS: PANTOPRAZOLE 40MG TAB (PROTONIX) PO SCH (08:51)
[2018-11-18] MEDS: FUROSEMIDE 40 MG TAB PO SCH (08:51)
[2018-11-18] MEDS: ASPIRIN 81 MG ENTERIC TAB PO SCH (08:51)
[2018-11-18] MEDS: DIVALPROEX 500 MG TAB PO SCH ×2 (08:51→17:02)
[2018-11-18] MEDS: MAGNESIUM OXIDE 400 MG TAB (MAG-OX) PO SCH ×2 (08:51→20:31)
[2018-11-18] MEDS: amLODIPine 5 MG TAB PO SCH (08:53)
[2018-11-18] MEDS: LISINOPRIL 20 MG TAB PO SCH (08:54)
[2018-11-18] MEDS: LEVEMIR (INSULIN DETEMIR) 1 UNITS/0.01ML SC SCH ×2 (08:54→20:31)
[2018-11-18] MEDS: HumaLOG INSULIN (NovoLOG) PER UNIT SC SCH ×4 (08:55→20:13)
--- NOTE | 2018-11-18 12:47 | IPNPDOC ---
Subjective Date Seen The patient was seen on 11/18/18. Subjective Chief Complaint/HPI Patient comfortable, in no apparent distress offers no new complaints General: Denies: ROS Unobtainable, Chills, Night Sweats, Fatigue, Malaise, Normal Appetite, Other Symptoms Constitutional: Denies: Chills, Fever, Malaise, Night Sweats, Weakness, Fatigue, Weight Loss, Lethargy, Other Eyes: Denies: Pain, Vision change, Conjunctivae inflammation, Eyelid inflammation, Redness, Other ENT: Denies: Head Aches, Ear Pain, Dysphagia, Sinus Congestion, Post Nasal Drip, Sore Throat, Epistaxis, Other Symptoms Skin: Denies: Rash, Lesions, Jaundice, Bruising, Itching, Dry, Breakdown, Nail Changes, Other Pulmonary: Denies: Dyspnea, Cough, Pleuritic Chest Pain, Other Symptoms Cardiovascular: Denies: Chest Pain, Palpitations, Orthopnea, Paroxysmal Noc. Dyspnea, Edema, Lt Headedness, Other Symptoms Gastrointestinal: Denies: Nausea, Vomiting, Abdominal Pain, Diarrhea, Constipation, Melena, Hematochezia, Other Symptoms Genitourinary: Denies: Dysuria, Frequency, Incontinence, Hematuria, Retention, Other Symptoms Hematologic: Denies: Bruising, Bleeding Excessively, Petecchia, Purpura, Enlarged Lymph Nodes, Other Hematologic Endocrine: Denies: Polydipsia, Polyphagia, Polyuria, Heat Intolerance, Cold Intolerance, Other Endocrine Sx Musculoskeletal: Denies: Neck Pain, Back Pain, Shoulder Pain, Arm Pain, Hand Pain, Leg Pain, Foot Pain, Joint Pain, Muscle Pain, Spasms, Other Symptoms Neurological: Denies: Weakness, Numbness, Incoordination, Change in speech, Confusion, Seizures, Other Symptoms Psych: Denies: Mood Normal, Anxiety, Depression, Memory Issues, Thoughts of Self Harm, Anger, Thoughts of Harming Other, Other Psych Objective Physical Examination General Exam: Positive: Alert, Cooperative, No Acute Distress Eye Exam: Positive: PERRLA, EOMI; Negative: Ptosis ENT Exam: Positive: Atraumatic, Mucous membr. moist/pink Neck Exam: Negative: JVD Chest Exam: Positive: Clear to auscultation, Normal air movement Heart Exam: Positive: Rate Normal, Normal S1, Normal S2 Abdomen Exam: Positive: Soft; Negative: Tenderness Extremity Exam: Negative: Tenderness, Swelling Neuro Exam: Positive: Normal Speech, Strength at 5/5 X4 ext, Normal Tone, Sensation Intact, Cranial Nerves 3-12 NL Psych Exam: Positive: Oriented x 3 A-FIB/CHADSVASC A-FIB History Current/History of A-Fib/PAF?: No Assessment /Plan Problems (1) Hypertensive urgency Status: Resolved Response to Treatment: Controlled Discussed With: Patient, Health Care Proxy Problem Text: Patient. Blood pressure right now is 113/70 Started Norvasc 5 mg by mouth daily PT, OT evaluation called Complaints. Counseling done in and sister was present during the counseling in the room Continue home medications Possible DC once the rehabilitation has been arranged (2) Hypomagnesemia Status: Resolved Response to Treatment: Improving Discussed With: Patient Problem Text: Magnesium oxide 400 mg by mouth twice a day Plan/VTE VTE Prophylaxis Ordered?: Yes VS, I&O, 24H, Fishbone Vital Signs/I&O Vital Signs Date Time Temp Pulse Resp B/P (MAP) Pulse Ox O2 Delivery O2 Flow Rate FiO2 11/18/18 08:54 102/70 11/18/18 08:53 80 11/18/18 06:00 96.7 18 92 11/14/18 21:20 Room Air I&O- Last 24 Hours up to 6 AM 11/18/18 06:00 Intake Total 1400 ml Output Total 1000 ml Balance 400 ml Laboratory Data 24H LABS Laboratory Tests 2 11/17/18 16:39: Bedside Glucose (Misc Panel) 131H 11/17/18 19:31: Bedside Glucose (Misc Panel) 169H 11/18/18 05:13: Bedside Glucose (Misc Panel) 170H ELIZABETH LAGUERRE MD November 18, 2018 12:47
[2018-11-18 14:00] VITALS: BP 108/51
[2018-11-18] MEDS: rOPINIRole 1MG TAB PO SCH (20:31)
[2018-11-18 22:00] VITALS: BP 96/51
[2018-11-19 06:00] VITALS: BP 101/54
[2018-11-19] MEDS: LEVOTHYROXINE 25MCG TABLET (0.025MG) PO SCH (06:20)
[2018-11-19] MEDS: ADVAIR HFA 115/21MCG INHALER INH SCH ×2 (07:54→20:31)
[2018-11-19] MEDS: CLOPIDOGREL 75 MG TAB PO SCH (09:03)
[2018-11-19] MEDS: VITAMIN D 1,000 INTERNATIONAL UNITS TABLET PO SCH (09:03)
[2018-11-19] MEDS: clonazePAM 0.5 MG TAB PO SCH ×3 (09:03→20:26)
[2018-11-19] MEDS: DIVALPROEX 500 MG TAB PO SCH ×2 (09:03→17:01)
[2018-11-19] MEDS: PANTOPRAZOLE 40MG TAB (PROTONIX) PO SCH (09:03)
[2018-11-19] MEDS: ARIPiprazole 15 MG TAB (AbiLIFY) PO SCH (09:03)
[2018-11-19] MEDS: FUROSEMIDE 40 MG TAB PO SCH (09:04)
[2018-11-19] MEDS: ASPIRIN 81 MG ENTERIC TAB PO SCH (09:04)
[2018-11-19] MEDS: LISINOPRIL 20 MG TAB PO SCH (09:04)
[2018-11-19] MEDS: amLODIPine 5 MG TAB PO SCH (09:04)
[2018-11-19] MEDS: MAGNESIUM OXIDE 400 MG TAB (MAG-OX) PO SCH ×2 (09:04→20:26)
[2018-11-19] MEDS: LEVEMIR (INSULIN DETEMIR) 1 UNITS/0.01ML SC SCH ×2 (09:05→20:27)
[2018-11-19] MEDS: HumaLOG INSULIN (NovoLOG) PER UNIT SC SCH ×4 (09:05→20:20)
--- NOTE | 2018-11-19 10:21 | IPNPDOC ---
Subjective Date Seen The patient was seen on 11/19/18. Subjective Chief Complaint/HPI Patient offers no new complaints. The present time General: Denies: ROS Unobtainable, Chills, Night Sweats, Fatigue, Malaise, Normal Appetite, Other Symptoms Constitutional: Denies: Chills, Fever, Malaise, Night Sweats, Weakness, Fatigue, Weight Loss, Lethargy, Other Eyes: Denies: Pain, Vision change, Conjunctivae inflammation, Eyelid inflammation, Redness, Other ENT: Denies: Head Aches, Ear Pain, Dysphagia, Sinus Congestion, Post Nasal Drip, Sore Throat, Epistaxis, Other Symptoms Skin: Denies: Rash, Lesions, Jaundice, Bruising, Itching, Dry, Breakdown, Nail Changes, Other Pulmonary: Denies: Dyspnea, Cough, Pleuritic Chest Pain, Other Symptoms Cardiovascular: Denies: Chest Pain, Palpitations, Orthopnea, Paroxysmal Noc. Dyspnea, Edema, Lt Headedness, Other Symptoms Gastrointestinal: Denies: Nausea, Vomiting, Abdominal Pain, Diarrhea, Constipation, Melena, Hematochezia, Other Symptoms Genitourinary: Denies: Dysuria, Frequency, Incontinence, Hematuria, Retention, Other Symptoms Hematologic: Denies: Bruising, Bleeding Excessively, Petecchia, Purpura, Enlarged Lymph Nodes, Other Hematologic Endocrine: Denies: Polydipsia, Polyphagia, Polyuria, Heat Intolerance, Cold Intolerance, Other Endocrine Sx Musculoskeletal: Denies: Neck Pain, Back Pain, Shoulder Pain, Arm Pain, Hand Pain, Leg Pain, Foot Pain, Joint Pain, Muscle Pain, Spasms, Other Symptoms Neurological: Denies: Weakness, Numbness, Incoordination, Change in speech, Confusion, Seizures, Other Symptoms Psych: Denies: Mood Normal, Anxiety, Depression, Memory Issues, Thoughts of Self Harm, Anger, Thoughts of Harming Other, Other Psych Objective Physical Examination General Exam: Positive: Alert, Cooperative, No Acute Distress Eye Exam: Positive: PERRLA, EOMI; Negative: Ptosis ENT Exam: Positive: Atraumatic, Mucous membr. moist/pink Neck Exam: Negative: JVD Chest Exam: Positive: Clear to auscultation, Normal air movement Heart Exam: Positive: Rate Normal, Normal S1, Normal S2 Abdomen Exam: Positive: Soft; Negative: Tenderness Extremity Exam: Negative: Tenderness, Swelling Neuro Exam: Positive: Normal Speech, Strength at 5/5 X4 ext, Normal Tone, Sensation Intact, Cranial Nerves 3-12 NL Psych Exam: Positive: Oriented x 3 A-FIB/CHADSVASC A-FIB History Current/History of A-Fib/PAF?: No Assessment /Plan Problems (1) Hypertensive urgency Status: Resolved Response to Treatment: Controlled Discussed With: Patient, Health Care Proxy Problem Text: Patient. Blood pressure right now is 113/70 Started Norvasc 5 mg by mouth daily PT, OT evaluation called Complaints. Counseling done in and sister was present during the counseling in the room Continue home medications Possible DC once the rehabilitation has been arranged Awaiting placement in the subacute area facility (2) Hypomagnesemia Status: Resolved Response to Treatment: Improving Discussed With: Patient Problem Text: Magnesium oxide 400 mg by mouth twice a day Plan/VTE VTE Prophylaxis Ordered?: Yes VS, I&O, 24H, Fishbone Vital Signs/I&O Vital Signs Date Time Temp Pulse Resp B/P (MAP) Pulse Ox O2 Delivery O2 Flow Rate FiO2 11/19/18 09:04 73 104/64 11/19/18 06:00 97.2 16 94 11/14/18 21:20 Room Air I&O- Last 24 Hours up to 6 AM 11/19/18 06:00 Intake Total 1695 ml Output Total 1800 ml Balance -105 ml ELIZABETH LAGUERRE MD November 19, 2018 10:21
[2018-11-19 14:00] VITALS: BP 117/59
[2018-11-19] MEDS: rOPINIRole 1MG TAB PO SCH (20:26)
[2018-11-19 22:00] VITALS: BP 115/62
[2018-11-20] MEDS: LEVOTHYROXINE 25MCG TABLET (0.025MG) PO SCH (05:36)
[2018-11-20 06:00] VITALS: BP 107/59
[2018-11-20] MEDS: VITAMIN D 1,000 INTERNATIONAL UNITS TABLET PO SCH (08:20)
[2018-11-20] MEDS: clonazePAM 0.5 MG TAB PO SCH ×3 (08:21→20:26)
[2018-11-20] MEDS: CLOPIDOGREL 75 MG TAB PO SCH (08:21)
[2018-11-20] MEDS: ASPIRIN 81 MG ENTERIC TAB PO SCH (08:21)
[2018-11-20] MEDS: ARIPiprazole 15 MG TAB (AbiLIFY) PO SCH (08:21)
[2018-11-20] MEDS: FUROSEMIDE 40 MG TAB PO SCH (08:21)
[2018-11-20] MEDS: MAGNESIUM OXIDE 400 MG TAB (MAG-OX) PO SCH ×2 (08:21→20:26)
[2018-11-20] MEDS: PANTOPRAZOLE 40MG TAB (PROTONIX) PO SCH (08:21)
[2018-11-20] MEDS: DIVALPROEX 500 MG TAB PO SCH ×2 (08:22→17:15)
[2018-11-20] MEDS: LEVEMIR (INSULIN DETEMIR) 1 UNITS/0.01ML SC SCH ×2 (08:22→20:27)
[2018-11-20] MEDS: HumaLOG INSULIN (NovoLOG) PER UNIT SC SCH ×4 (08:23→20:21)
[2018-11-20] MEDS: LISINOPRIL 20 MG TAB PO SCH (08:23)
[2018-11-20] MEDS: amLODIPine 5 MG TAB PO SCH (08:24)
[2018-11-20] MEDS: ADVAIR HFA 115/21MCG INHALER INH SCH ×2 (08:54→20:20)
--- NOTE | 2018-11-20 10:14 | IPNPDOC ---
Subjective Date Seen The patient was seen on 11/20/18. Subjective Chief Complaint/HPI Patient offers no new complaints. Comfortable lying in bed General: Denies: ROS Unobtainable, Chills, Night Sweats, Fatigue, Malaise, Normal Appetite, Other Symptoms Constitutional: Denies: Chills, Fever, Malaise, Night Sweats, Weakness, Fatigue, Weight Loss, Lethargy, Other Eyes: Denies: Pain, Vision change, Conjunctivae inflammation, Eyelid inflammation, Redness, Other ENT: Denies: Head Aches, Ear Pain, Dysphagia, Sinus Congestion, Post Nasal Drip, Sore Throat, Epistaxis, Other Symptoms Skin: Denies: Rash, Lesions, Jaundice, Bruising, Itching, Dry, Breakdown, Nail Changes, Other Pulmonary: Denies: Dyspnea, Cough, Pleuritic Chest Pain, Other Symptoms Cardiovascular: Denies: Chest Pain, Palpitations, Orthopnea, Paroxysmal Noc. Dyspnea, Edema, Lt Headedness, Other Symptoms Gastrointestinal: Denies: Nausea, Vomiting, Abdominal Pain, Diarrhea, Constipation, Melena, Hematochezia, Other Symptoms Genitourinary: Denies: Dysuria, Frequency, Incontinence, Hematuria, Retention, Other Symptoms Hematologic: Denies: Bruising, Bleeding Excessively, Petecchia, Purpura, Enlarged Lymph Nodes, Other Hematologic Endocrine: Denies: Polydipsia, Polyphagia, Polyuria, Heat Intolerance, Cold Intolerance, Other Endocrine Sx Musculoskeletal: Denies: Neck Pain, Back Pain, Shoulder Pain, Arm Pain, Hand Pain, Leg Pain, Foot Pain, Joint Pain, Muscle Pain, Spasms, Other Symptoms Neurological: Denies: Weakness, Numbness, Incoordination, Change in speech, Confusion, Seizures, Other Symptoms Psych: Denies: Mood Normal, Anxiety, Depression, Memory Issues, Thoughts of Self Harm, Anger, Thoughts of Harming Other, Other Psych Objective Physical Examination General Exam: Positive: Alert, Cooperative, No Acute Distress Eye Exam: Positive: PERRLA, EOMI; Negative: Ptosis ENT Exam: Positive: Atraumatic, Mucous membr. moist/pink Neck Exam: Negative: JVD Chest Exam: Positive: Clear to auscultation, Normal air movement Heart Exam: Positive: Rate Normal, Normal S1, Normal S2 Abdomen Exam: Positive: Soft; Negative: Tenderness Extremity Exam: Negative: Tenderness, Swelling Neuro Exam: Positive: Normal Speech, Strength at 5/5 X4 ext, Normal Tone, Sensation Intact, Cranial Nerves 3-12 NL Psych Exam: Positive: Oriented x 3 A-FIB/CHADSVASC A-FIB History Current/History of A-Fib/PAF?: No Assessment /Plan Problems (1) Hypertensive urgency Status: Resolved Response to Treatment: Controlled Discussed With: Patient, Health Care Proxy Problem Text: Patient. Blood pressure right now is 113/70 Started Norvasc 5 mg by mouth daily PT, OT evaluation called Complaints. Counseling done in and sister was present during the counseling in the room Continue home medications Possible DC once the rehabilitation has been arranged Awaiting placement in the subacute area facility (2) Hypomagnesemia Status: Resolved Response to Treatment: Improving Discussed With: Patient Problem Text: Magnesium oxide 400 mg by mouth twice a day Plan/VTE VTE Prophylaxis Ordered?: Yes VS, I&O, 24H, Fishbone Vital Signs/I&O Vital Signs Date Time Temp Pulse Resp B/P (MAP) Pulse Ox O2 Delivery O2 Flow Rate FiO2 11/20/18 08:24 63 113/66 11/20/18 06:00 96.9 17 90 11/14/18 21:20 Room Air I&O- Last 24 Hours up to 6 AM 11/20/18 06:00 Intake Total 440 ml Output Total 275 ml Balance 165 ml Laboratory Data 24H LABS Laboratory Tests 2 11/19/18 12:27: Bedside Glucose (Misc Panel) 148H 11/19/18 16:47: Bedside Glucose (Misc Panel) 150H 11/19/18 20:17: Bedside Glucose (Misc Panel) 188H 11/20/18 08:04: Bedside Glucose (Misc Panel) 217H ELIZABETH LAGUERRE MD November 20, 2018 10:14
[2018-11-20 14:00] VITALS: BP 100/52
[2018-11-20] MEDS: rOPINIRole 1MG TAB PO SCH (20:26)
[2018-11-20 22:00] VITALS: BP 112/57
[2018-11-21] MEDS: LEVOTHYROXINE 25MCG TABLET (0.025MG) PO SCH (05:50)
[2018-11-21 06:00] VITALS: BP 136/72
[2018-11-21] MEDS: HumaLOG INSULIN (NovoLOG) PER UNIT SC SCH (08:02)
[2018-11-21] MEDS: ASPIRIN 81 MG ENTERIC TAB PO SCH (08:03)
[2018-11-21] MEDS: LEVEMIR (INSULIN DETEMIR) 1 UNITS/0.01ML SC SCH (08:03)
[2018-11-21] MEDS: PANTOPRAZOLE 40MG TAB (PROTONIX) PO SCH (08:03)
[2018-11-21 08:04] VITALS: BP 118/73
[2018-11-21] MEDS: amLODIPine 5 MG TAB PO SCH (08:04)
[2018-11-21] MEDS: ARIPiprazole 15 MG TAB (AbiLIFY) PO SCH (08:05)
[2018-11-21] MEDS: DIVALPROEX 500 MG TAB PO SCH (08:05)
[2018-11-21] MEDS: LISINOPRIL 20 MG TAB PO SCH (08:05)
[2018-11-21] MEDS: FUROSEMIDE 40 MG TAB PO SCH (08:05)
[2018-11-21] MEDS: VITAMIN D 1,000 INTERNATIONAL UNITS TABLET PO SCH (08:05)
[2018-11-21] MEDS: clonazePAM 0.5 MG TAB PO SCH (08:06)
[2018-11-21] MEDS: MAGNESIUM OXIDE 400 MG TAB (MAG-OX) PO SCH (08:06)
[2018-11-21] MEDS: CLOPIDOGREL 75 MG TAB PO SCH (08:06)
[2018-11-21] MEDS: ADVAIR HFA 115/21MCG INHALER INH SCH (08:30)
[2018-11-21] MEDS ORDERED: PANT40TA3 PO (09:03)
[2018-11-21] MEDS ORDERED: MAG400TA PO (09:03)
[2018-11-21] MEDS ORDERED: QUET5TAB PO (09:03)
[2018-11-21] MEDS ORDERED: FURO40TA2 PO (09:03)
[2018-11-21] MEDS ORDERED: CLOP75TA2 PO (09:03)
[2018-11-21] MEDS ORDERED: VITAD1000T PO (09:03)
[2018-11-21] MEDS ORDERED: CLON0.5T8 PO (09:03)
[2018-11-21] MEDS ORDERED: IPRA0.00 NEB (09:03)
[2018-11-21] MEDS ORDERED: LEVO25TA5 PO (09:03)
[2018-11-21] MEDS ORDERED: INSUDET SC (09:03)
[2018-11-21] MEDS ORDERED: ROPI1TAB PO (09:03)
[2018-11-21] MEDS ORDERED: AMLO5TAB6 PO (09:03)
[2018-11-21] MEDS ORDERED: LISI-538 PO (09:03)
[2018-11-21] MEDS ORDERED: ADVA115A INH (09:03)
[2018-11-21] MEDS ORDERED: ABIL1TAB12 PO (09:03)
[2018-11-21] MEDS ORDERED: DEPA1TAB3 PO ×2 (09:03)
[2018-11-21] MEDS ORDERED: ASPI81TAEC PO (09:03)
--- NOTE | 2018-11-21 09:07 | DS.PDOC ---
Discharge Summary General Date of Admission November 16, 2018 at 14:59 Date of Discharge 11/21/18 Attending Physician: ELIZABETH LAGUERRE MD Discharge Summary PROCEDURES PERFORMED DURING STAY: [None]. ADMITTING DIAGNOSES: 1. [uncontrolled HTN]. DISCHARGE DIAGNOSES: 1. [Uncontrolled hypertension, deconditioning]. COMPLICATIONS/CHIEF COMPLAINT: Hypertensive Urgency. HISTORY OF PRESENT ILLNESS: [58-year-old female with past medical history of hypertension, dyslipidemia, diabetes mellitus, COPD, morbid obesity, Parkinson's disease, and schizoaffective disorder presented to the ER with a chief complaint of headache, lightheadedness, and generalized fatigue over the last 3 days. She reports that she has been taking her medications as prescribed. The patient is a rather poor historian, but denies any complaints of fevers, chills, chest pain, palpitations, shortness of breath, abdominal pain, or any naus ea/vomiting/diarrhea. She also denied any symptoms of facial droop, slurring of speech, visual blurring, numbness/tickling in extremities, focal weaknesses, or any other new neurological deficits. In the ER, the patient was noted to have elevated blood pressure readings with systolic blood pressure in the 220s, and diastolic in the 110s. She did not present with any focal neurological deficits. A CT scan of the head revealed no acute findings. She will be admitted to the hospitalist service for further yfn luation and manageme]. HOSPITAL COURSE: [Patient was admitted to PCU for treatment of uncontrolled hypertension. Patient was started on all her home medications along with Norvasc 5 mg by mouth daily. Patient has a history of noncompliance with her meds as per patient's sister, she does not remember loss of her meds. Patient also has a deconditioning and needs help with management of her activities of daily living. Patient's blood pressure was controlled very well with the home meds and Norvasc added was advisable to arrange patient to be transferred to high level of care facility such at subacute rehabilitation facility for deconditioning. Patient will be transferred today to subacute rehabilitation facility on all current medications.]. DISCHARGE MEDICATIONS: Please see below. ALLERGIES: Please see below. PHYSICAL EXAMINATION ON DISCHARGE: VITAL SIGNS: Please see below. GENERAL: [Comfortable, pleasant, in no distress] HEENT:. PERRLA. Extraocular muscles intact NECK: Supple, no JVD, no JVD, no lymphadenopathy CARDIOVASCULAR EXAMINATION: S1, S2 regular. No murmur or thrill RESPIRATORY EXAMINATION: [Clear to A&P] ABDOMINAL EXAMINATION: [, Soft, nontender, bowel sounds presents] EXTREMITIES: [No clubbing, cyanosis, edema] SKIN: [Normal] NEUROLOGICAL EXAMINATION: [Normal] PSYCHIATRIC EXAMINATION: [Normal] LABORATORY DATA: Please see below. IMAGING: [As per EMR] PROGNOSIS: [Good] ACTIVITY: [As tolerated]. DIET: [Low-salt diet] DISCHARGE PLAN: [To subacute rehabilitation facility] DISPOSITION: . To subacute rehabilitation facility DISCHARGE INSTRUCTIONS: 1. [As above]. ITEMS TO FOLLOWUP ON ON OUTPATIENT: 1. [As above]. DISCHARGE CONDITION: [Stable]. TIME SPENT ON DISCHARGE: Greater than [40] minutes. Vital Signs/I&Os Vital Signs Date Time Temp Pulse Resp B/P (MAP) Pulse Ox O2 Delivery O2 Flow Rate FiO2 11/21/18 08:04 68 118/73 11/21/18 06:00 96.3 16 98 I&O- Last 24 Hours up to 6 AM 11/21/18 06:00 Intake Total 880 ml Output Total 950 ml Balance -70 ml Laboratory Data Labs 24H Laboratory Tests 2 11/20/18 11:24: Bedside Glucose (Misc Panel) 152H 11/20/18 16:52: Bedside Glucose (Misc Panel) 167H 11/20/18 20:08: Bedside Glucose (Misc Panel) 155H 11/21/18 07:24: Bedside Glucose (Misc Panel) 161H FSBS Laboratory Tests Test 11/20/18 11:24 11/20/18 16:52 11/20/18 20:08 11/21/18 07:24 Range/Units Bedside Glucose (Misc Panel) 152 167 155 161 70-105 MG/DL Discharge Medications Scheduled Amlodipine Besylate (Amlodipine Besylate) 5 Mg Tablet, 5 MG PO DAILY Aripiprazole (Abilify) 15 Mg Tablet, 15 MG PO DAILY Aspirin (Aspirin EC) 81 Mg Tablet.dr, 81 MG PO DAILY Clonazepam (Clonazepam) 0.5 Mg Tablet, 0.5 MG PO TID Clopidogrel Bisulfate (Clopidogrel) 75 Mg Tablet, 75 MG PO DAILY Divalproex Sodium (Depakote) 500 Mg Tablet.dr, 1,500 MG PO QAM Divalproex Sodium (Depakote) 500 Mg Tablet.dr, 500 MG PO QPM@1600 Fluticasone Propion/Salmeterol (Advair Hfa 115-21 Mcg Inhaler) 12 Gm Hfa.aer.ad, 2 PUFF INH BID Furosemide (Furosemide) 40 Mg Tablet, 40 MG PO DAILY Insulin Detemir (Levemir) 100 Unit/1 Ml Vial, 10 UNITS SC BID Levothyroxine Sodium (Levothyroxine Sodium) 25 Mcg Tablet, 25 MCG PO DAILY@0600 Lisinopril (Lisinopril) 20 Mg Tablet, 20 MG PO DAILY Magnesium Oxide (Magnesium Oxide) 400 Mg Tablet, 400 MG PO BID Pantoprazole Sodium (Pantoprazole Sodium) 40 Mg Tablet.dr, 40 MG PO DAILY Ropinirole HCl (Ropinirole HCl) 1 Mg Tablet, 1 MG PO QHS Vitamin D (Vitamin D3) 1,000 Unit Tablet, 2,000 UNITS PO DAILY Scheduled PRN Ipratropium/Albuterol Sulfate (Iprat-Albut 0.5-3(2.5) mg/3 ml) 3 Ml Ampul.neb, 3 ML NEB Q2HP PRN for SOB/WHEEZING Quetiapine Fumarate (Quetiapine Fumarate) 50 Mg Tablet, 50 MG PO Q6HP PRN for ANXIETY/AGITATION Allergies Coded Allergies: Sulfa (Sulfonamide Antibiotics) (Verified Allergy, Unknown, rash, 11/14/18) bupropion (Verified Allergy, Unknown, rash, 11/14/18) trazodone (Verified Adverse Reaction, Mild, makes me feel funny, 11/14/18) ELIZABETH LAGUERRE MD November 21, 2018 09:07
== END 2018-11-21 11:44 | DRG 199 ==
LOC: M ED 15:29 → EDBD 15:29 → M ED INP 17:14 → M PCU 21:27 → OBSVTOIN 11-16 14:59 → M MSPAV 11-16 17:45
PROVIDERS: ADMIT Internal Medicine; ATTEND Internal Medicine
DX: I16.0 Hypertensive urgency (principal); G20 Parkinson's disease; E66.01 Morbid (severe) obesity due to excess calories; E83.42 Hypomagnesemia; E78.5 Hyperlipidemia, unspecified; E11.9 Type 2 diabetes mellitus without complications; J44.9 Chronic obstructive pulmonary disease, unspecified; Z79.82 Long term (current) use of aspirin; Z79.899 Other long term (current) drug therapy; Z88.2 Allergy status to sulfonamides; Z88.6 Allergy status to analgesic agent; Z88.5 Allergy status to narcotic agent; I10 Essential (primary) hypertension